=== PATIENT | female | born 1965 | race Caucasian/White ===

== ENCOUNTER 2021-07-04 16:23 | Emergency (ER) | payer OTHER, SELFPAY ==
--- NOTE | ~2021-07-04 | XR_ITS ---
EXAMINATION: XR chest 2V DATE: 07/04/2021 17:16 INDICATION: Left neck and chest pain and numbness radiating down the left arm for 2 weeks. TECHNIQUE: PA and lateral views of the chest were obtained. COMPARISON: None FINDINGS: The lungs are clear with no focal airspace opacities, pulmonary edema, pleural effusion or pneumothor ax. The cardiomediastinal silhouette is normal. Visualized bones and soft tissues are unremarkable. IMPRESSION: 1. No acute cardiopulmonary disease. Reviewed, dictated and finalized at location A.
[2021-07-04 16:33] VITALS: BP 176/110; PULSE 99; RESP 18; TEMP 36.8; O2SAT 98
--- NOTE | 2021-07-04 16:38 | ECG_ITS ---
Measurements Intervals [place] Rate: 97 P: 51 [place]: 156 QRS: 15 QRSD: 86 T: 30 QT: 360 QTc: 457 Interpretive Statements SINUS RHYTHM CANNOT RULE OUT SEPTAL INFARCT, AGE INDETERMINATE ABNORMAL ECG Electronically Signed On 07-04-2021 20:40:19 CDT by Mariano Villeda D.O.
[2021-07-04 17:46] LABS: Basophils Absolute Auto 0.1 K/mm3 (0.0-0.1); Eosinophils Absolute Auto 0.3 K/mm3 (0-0.3); Eosinophils Percent Auto 2.4 % (0-4.4); Hematocrit 47.5 % (37.0-47.0); Hemoglobin 15.4 g/dL (12.0-15.0); Immature Granulocyte Absolute 0.05 K/mm3 (0.00-0.031); Immature Granulocyte Percent A 0.4 % (0-0.5); Lymphocytes Absolute Auto 2.33 K/mm3 (0.9-3.2); Lymphocytes Percent Auto 20.3 % (18.3-44.2); Mean Corpuscular HGB Conc 32.4 g/dl (32-36); Mean Corpuscular Hemoglobin 29.8 pg (26-34); Mean Corpuscular Volume 91.9 fl (80-100); Mean Platelet Volume 9.6 fl (7.4-10.4); Monocytes Absolute Auto 0.8 K/mm3 (0.1-0.6); Neutrophils Absolute Auto 7.9 K/mm3 (1.3-6.7); Neutrophils Percent Auto 68.9 % (45.5-73.1); Platelet Count Result 306 k/mm3 (150-375); Red Blood Count 5.17 M/mm3 (4.2-5.4); Red Cell Distribution Width 14.1 % (11.5-14.5); White Blood Count 11.5 K/mm3 (4.5-10.0)
[2021-07-04 17:55] LABS: Anion Gap 9 mmol/L (8-16); Blood Urea Nitrogen 15 mg/dL (7-17); Calcium 9.1 mg/dL (8.4-10.2); Carbon Dioxide 30 mmol/L (22-30); Chloride 101 mmol/L (98-107); Estimated CRCL calculation 61 ml/min; Estimated Glomerular Filt Rate 58; Glucose 98 mg/dL (65-110); INR 0.8; Potassium 3.6 mmol/L (3.4-5.0); Prothrombin Time 11.4 Seconds (11.1-14.7); Sodium 140 mmol/L (137-145)
[2021-07-04 18:06] LABS: Troponin I < 0.012 ng/mL (0.000-0.034)
[2021-07-04 20:01] VITALS: BP 161/124; PULSE 100; RESP 14; TEMP 36.7; O2SAT 100
--- NOTE | 2021-07-04 20:06 | ED.NECK ---
HPI - Neck Pain/Injury General Chief Complaint: Neck Pain/Injury Stated Complaint: left neck/shoulder/chest pain x 2 weeks Time Seen by Provider: 07/04/21 20:06 Source: patient Mode of arrival: ambulatory Limitations: no limitations History of Present Illness HPI Narrative: Patient is a 56-year-old female complaining of left-sided neck pain radiating to her left shoulder and left upper chest wall, 7 out of 10, worse with movement and palpation, accompanied by tingling of her left upper extremity started approximately 2 weeks ago. Patient denies any injury. Related Data Allergies Allergy/AdvReac Type Severity Reaction Status Date / Time codeine Allergy Intermediate Itching Verified 07/04/21 20:22 hydrocodone Allergy Unknown Unknown Verified 07/04/21 20:22 Review of Systems Review of Systems: All systems reviewed & are unremarkable except as noted in HPI and below Constitutional: Constitutional: Denies body ache(s), Denies chills, Denies excessive sweating, Denies fatigue, Denies fever(s), Denies headache(s), Denies lethargy, Denies malaise, Denies weakness and Denies weight loss Eyes: Eyes: Denies blurry vision, Denies change in vision and Denies loss of vision ENT: Denies dizziness, Denies ear discharge, Denies headache(s), Denies lip swelling, Denies epistaxis, Denies nasal congestion, Denies throat swelling and Denies tongue swelling Cardiovascular: Cardiovascular: Denies chest pain, Denies chest pain at rest, Denies chest pain with activity, Denies diaphoresis, Denies rapid heart rate, Denies edema, Denies irregular heart rhythm, Denies lightheadedness, Denies palpitations, Denies dyspnea and Denies dyspnea on exertion Respiratory: Respiratory: Denies chest congestion, Denies cough, Denies hemoptysis, Denies dyspnea and Denies dyspnea on exertion Gastrointestinal: Gastrointestinal: Denies abdominal pain, Denies melena, Denies hematochezia, Denies diarrhea, Denies nausea, Denies vomiting and Denies hematemesis Musculoskeletal: Musculoskeletal: Denies abnormal gait, Denies deformity, Denies joint swelling, Denies limited range of motion and Denies numbness Neurologic: Denies Abnormal speech present, Denies abnormal gait, Denies confusion, Denies dizziness, Denies headache(s), Denies focal weakness, Denies loss of vision, Denies numbness, Denies Other visual disturbances and Denies weakness Psychiatric: Psychiatric: Denies confusion, Denies depression, Denies auditory hallucinations, Denies homicidal ideation and Denies suicidal ideation Endocrine: Endocrine: Denies cold intolerance, Denies excessive sweating, Denies fatigue, Denies heat intolerance and Denies palpitations Hematologic/Lymphatic: Hematologic/Lymphatic: Denies easy bleeding and Denies easy bruising Allergic/Immunologic: Allergic/Immunologic: Denies lip swelling, Denies throat swelling and Denies tongue swelling PMFSH Comments Past medical history: None Family history: Negative for coronary artery disease or NE, negative for aneurysm or dissection Social history: Positive for smoker, no EtOH or drug use Exam Const: General: cooperative, healthy appearing, comfortable, no acute distress, well developed, alert and awake; No confusion Orientation/consciousness: oriented to person, oriented to place, oriented to time, patient oriented x3 and No confusion Limitations: no limitations HENMT: Head: normal to inspection, normocephalic and atraumatic Ears: hearing grossly normal bilaterally, TM normal on the right and TM normal on the left General nose exam: Normal external nose present, Normal nares present and No nasal discharge present Face and sinus: normal facial exam Mouth: Yes Normal oral and palatal mucosa present, Yes lip normal, Yes tongue normal and Yes oropharynx normal Throat: posterior oropharynx normal, tonsils normal and uvula midline Eyes: General: appearance normal, both eyes and all related structures Pupils: Equal, round and reactive pupils present EOM:
[2021-07-04] MEDS: CYCLOBENZAPRINE HCL 10 MG TABLET PO (20:28)
[2021-07-04 20:42] LABS: Troponin I < 0.012 ng/mL (0.000-0.034)
== END 2021-07-04 22:06 | disposition home or self-care (01) ==
PROVIDERS: Emergency Provider Emergency Medicine
DX: M54.12 Radiculopathy, cervical region (principal); R07.89 Other chest pain; F17.200 Nicotine dependence, unspecified, uncomplicated; R94.31 Abnormal electrocardiogram [ECG] [EKG]
CPT/HCPCS: 36415; 71046; 80048; 84484; 85025; 85610; 85730; 93005; 96372; 99284; A9270; J1100

== ENCOUNTER 2021-08-20 00:10 | Emergency (ER) | payer OTHER, SELFPAY ==
--- NOTE | ~2021-08-20 | CT_ITS ---
EXAMINATION: CT abdomen pelvis wo con DATE: 08/20/2021 04:36 INDICATION: Flank pain. Urinary tract infection. TECHNIQUE: Computed tomography (CT) of the abdomen and pelvis was performed without intravenous contr ast. Automated exposure control and iterative reconstruction technique were employed. The dose-length product was 1309.77 mGy-cm. COMPARISON: None. FINDINGS: The visualized portions of the lung bases demonstrate calcified pulmonary nodules and calci fied left hilar and mediastinal lymph nodes, consistent with old granulomatous disease. No pleural ef fusion. The heart size is normal. No pericardial effusion. There is diffuse hepatic steatosis. The ga llbladder is normal. Calcifications in the spleen are consistent with old granulomatous disease. The pancreas and adrenal glands are normal. There is an 8 mm stone in right kidney. There is cortical thi nning of left kidney. There is a 14 mm calcification in left kidney that is likely parenchymal. There is diverticulosis of the colon without evidence of diverticulitis. The appendix is normal. There are no pathologically enlarged lymph nodes. There is no free intraperitoneal fluid. There is a left ingu inal hernia containing fat. There is a 3.1 cm subserosal uterine fibroid. There is moderate thoracolu mbar spondylosis. IMPRESSION: 1. Nonobstructing right kidney stone. 2. Left inguinal hernia containing fat. 3. Uterine fibroid. Reviewed, dictated and finalized at location A. TECH
--- NOTE | ~2021-08-20 | XR_ITS ---
EXAMINATION: XR chest 1V portable DATE: 08/20/2021 03:24 INDICATION: Cough and shortness of breath. TECHNIQUE: A single frontal view of the chest was obtained. COMPARISON: Chest 2 views 07/04/2021, CT abdomen and pelvis 08/20/2021 FINDINGS: The chest demonstrates clear lungs without pneumonia, pleural effusion, or pneumothorax. Th e heart size is normal. IMPRESSION: 1. No acute cardiopulmonary disease. Reviewed, dictated and finalized at location A. [address]
[2021-08-20 00:13] VITALS: BP 137/100; PULSE 114; RESP 18; TEMP 36.9; O2SAT 100
[2021-08-20 01:49] VITALS: BP 132/69; PULSE 103; RESP 18; O2SAT 100
[2021-08-20 03:15] LABS: Basophils Absolute Auto 0.1 K/mm3 (0.0-0.1); Basophils Percent Auto 0.9 % (0.2-1.2); Eosinophils Absolute Auto 0.2 K/mm3 (0-0.3); Eosinophils Percent Auto 1.6 % (0-4.4); Hematocrit 43.1 % (37.0-47.0); Hemoglobin 14.2 g/dL (12.0-15.0); Immature Granulocyte Absolute 0.07 K/mm3 (0.00-0.031); Immature Granulocyte Percent A 0.5 % (0-0.5); Lymphocytes Absolute Auto 2.74 K/mm3 (0.9-3.2); Lymphocytes Percent Auto 18.5 % (18.3-44.2); Mean Corpuscular HGB Conc 32.9 g/dl (32-36); Mean Corpuscular Hemoglobin 29.8 pg (26-34); Mean Corpuscular Volume 90.5 fl (80-100); Mean Platelet Volume 9.5 fl (7.4-10.4); Monocytes Absolute Auto 1.4 K/mm3 (0.1-0.6); Monocytes Percent Auto 9.7 % (2.6-8.5); Neutrophils Absolute Auto 10.2 K/mm3 (1.3-6.7); Neutrophils Percent Auto 68.8 % (45.5-73.1); Platelet Count Result 261 k/mm3 (150-375); Red Blood Count 4.76 M/mm3 (4.2-5.4); Red Cell Distribution Width 14.6 % (11.5-14.5); White Blood Count 14.8 K/mm3 (4.5-10.0)
[2021-08-20 03:26] LABS: Add Urine Microscopic? YES; Appearance Urine Cloudy (Clear); Bacteria Urine 4+ /hpf; Bilirubin Urine Negative (Negative); Blood Urine 3+ (Negative); Color Urine Yellow (Yellow); Glucose Urine UA Negative (Negative); Ketones Urine Negative (Negative); Leukocyte Esterase Ur 3+ LEU/UL (Negative); Mucus Urine Rare /lpf; Nitrate Urine Positive (Negative); Protein Urine 1+ mg/dL (Negative); RBC Urine 21-50 /hpf (0-2); Specific Grav Ur 1.019 (1.001-1.035); Squamous Epithelial Cell Urine Few /hpf (Few); Urobilinogen Urine Negative mg/dL (<2.0); WBC Clumps Urine Present /HPF; WBC Urine >75 /hpf
--- NOTE | 2021-08-20 03:30 | ED.GENADULT ---
HPI - General Adult General Chief complaint: Fever Stated complaint: Fever Time Seen by Provider: 08/20/21 02:36 History of Present Illness HPI narrative: Patient 56-year-old female presents the emergency department with chief complaint of fever body aches and generalized malaise. Patient reports is been going on for couple of days reports that she has had a dry cough denies shortness of breath reports that she is 8 alter her chest and abdomen and pelvis reports it also hurts in her back. The patient denies dysuria denies vomiting denies diarrhea. The patient reports that she has been vaccinated for COVID-19 Related Data Allergies Allergy/AdvReac Type Severity Reaction Status Date / Time codeine Allergy Intermediate Itching Verified 08/20/21 00:24 hydrocodone Allergy Unknown Unknown Verified 08/20/21 00:24 Review of Systems Review of Systems: A 10 system review of systems was completed on the patient and is negative except for what is stated in the HPI. Nursing and ancillary documentation was reviewed. Exam Narrative: GENERAL: Well-appearing, well-nourished, and in no acute distress. HEAD: Normocephalic, atraumatic. EYES: PERRLA and EOMI. ENT: Nares clear, no rhinorrhea or epistaxis. Mucous membranes moist. NECK: Supple. CHEST: Clear to auscultation. No respiratory distress. HEART: Regular rate and rhythm. No murmur heard. Normal peripheral pulses. ABDOMEN: Soft, diffuse tenderness to palpation, nondistended, normal active bowel sounds. EXTREMITIES: Normal range of motion. No edema. SKIN: Warm, dry, no rash. NEURO: No focal deficits. Alert and oriented x3. PSYCH: Normal mood and affect. Course Vital Signs Vital signs: Vital Signs Temperature 36.9 C 08/20/21 00:13 Pulse Rate 114 H 08/20/21 00:13 Respiratory Rate 18 08/20/21 00:13 Blood Pressure 137/100 H 08/20/21 00:13 Pulse Oximetry 100 08/20/21 00:13 Temperature 36.9 C 08/20/21 00:13 Pulse Rate 81 08/20/21 04:36 Respiratory Rate 20 08/20/21 04:36 Blood Pressure 144/87 H 08/20/21 04:36 Pulse Oximetry 100 08/20/21 04:36 Medical Decision Making Vital Signs Vital Signs: Vital Signs Temperature 36.9 C 08/20/21 00:13 Pulse Rate 114 H 08/20/21 00:13 Respiratory Rate 18 08/20/21 00:13 Blood Pressure 137/100 H 08/20/21 00:13 Pulse Oximetry 100 08/20/21 00:13 Temperature 36.9 C 08/20/21 00:13 Pulse Rate 81 08/20/21 04:36 Respiratory Rate 20 08/20/21 04:36 Blood Pressure 144/87 H 08/20/21 04:36 Pulse Oximetry 100 08/20/21 04:36 Lab Data Result diagrams: 08/20/21 03:09 08/20/21 03:09 Labs: Lab Results 08/20/21 08/20/21 08/20/21 Range/Units 03:09 03:09 03:09 WBC 14.8 H (4.5-10.0) K/mm3 RBC 4.76 (4.2-5.4) M/mm3 Hgb 14.2 (12.0-15.0) g/dL Hct 43.1 (37.0-47.0) % MCV 90.5 (80-100) fl MCH 29.8 (26-34) pg MCHC 32.9 (32-36) g/dl RDW 14.6 H (11.5-14.5) % Plt Count 261 (150-375) k/mm3 MPV 9.5 (7.4-10.4) fl Immature Gran % (Auto) 0.5 (0-0.5) % Neut % (Auto) 68.8 (45.5-73.1) % Lymph % (Auto) 18.5 (18.3-44.2) % Haines % (Auto) 9.7 H (2.6-8.5) % Eos % (Auto) 1.6 (0-4.4) % Baso % (Auto) 0.9 (0.2-1.2) % Lymph # (Auto) 2.74 (0.9-3.2) K/mm3 Haines # (Auto) 1.4 H (0.1-0.6) K/mm3 Eos # (Auto) 0.2 (0-0.3) K/mm3 Baso # (Auto) 0.1 (0.0-0.1) K/mm3 Abs Immat Gran (auto) 0.07 H (0.00-0.031) K/mm3 Absolute Neuts (auto) 10.2 H (1.3-6.7) K/mm3 Absolute Nucleated RBC 0.0 (0.0-0.012) K/mm3 Nucleated RBC % 0.0 (0.0-0.2) % Sodium 135 L (137-145) mmol/L Potassium 3.8 (3.4-5.0) mmol/L Chloride 101 (98-107) mmol/L Carbon Dioxide 29 (22-30) mmol/L Anion Gap 5 L (8-16) mmol/L BUN 13 (7-17) mg/dL Creatinine 1.00 (0.7-1.0) mg/dL Estim Creat Clear Calc 62 ml/min Estimated GFR 58 L (59 - ) Glucose 117 H (65-110) mg/dL Lactic Ac
[2021-08-20 03:31] LABS: Lactic Acid Reflex 1.1 mmol/L (0.7-2.1)
[2021-08-20] MEDS: KETOROLAC 30 MG/ML VIAL (*BKC) 15 MG IV PUSH (03:34)
[2021-08-20] MEDS: SODIUM CHLORIDE 0.9% IV 1,000 ML 999 ML IV CONT (03:34)
[2021-08-20] MEDS: ONDANSETRON INJ 4 MG/2 ML VIAL IV PUSH (03:35)
[2021-08-20 03:55] LABS: Alanine Aminotransferase 18 U/L (4-35); Albumin Level 3.7 g/dL (3.5-5.1); Alkaline Phosphatase 89 U/L (38-126); Anion Gap 5 mmol/L (8-16); Aspartate Amino Transferase 19 U/L (14-36); Bilirubin,Total 0.8 mg/dL (0.2-1.3); Blood Urea Nitrogen 13 mg/dL (7-17); Calcium 8.9 mg/dL (8.4-10.2); Carbon Dioxide 29 mmol/L (22-30); Chloride 101 mmol/L (98-107); Estimated CRCL calculation 62 ml/min; Estimated Glomerular Filt Rate 58; Glucose 117 mg/dL (65-110); Magnesium 2.1 mg/dL (1.6-2.3); Potassium 3.8 mmol/L (3.4-5.0); Sodium 135 mmol/L (137-145)
[2021-08-20 04:36] VITALS: BP 144/87; PULSE 81; RESP 20; O2SAT 100
[2021-08-20 06:36] VITALS: BP 133/83; PULSE 89; RESP 18; O2SAT 98
== END 2021-08-20 06:37 | disposition home or self-care (01) ==
PROVIDERS: Emergency Provider Emergency Medicine
DX: N12 Tubulo-interstitial nephritis, not specified as acute or chronic (principal)
CPT/HCPCS: 36415; 71045; 74176; 80053; 81001; 83605; 83735; 85025; 87077; 87081; 87086; 87088; 87186; 87804; 87880; 96361; 96365; 96375; 99284; J0696; J1885; J2405; J7030

== ENCOUNTER 2024-05-22 18:37 | Emergency (ER) | payer OTHER, SELFPAY ==
--- NOTE | ~2024-05-22 | XR_ITS ---
EXAM: XR ankle RT min 3V, XR foot RT min 3V DATE: 05/22/2024 19:26 HISTORY: foot injury . COMPARISON: None available. FINDINGS: Normal mineralization. Oblique fracture of the distal right fifth metatarsal, with 4 mm me dial displacement of the distal fragment. No lytic or blastic lesion. Mild scattered degenerative richard nge. Minimal Achilles and mild plantar enthesopathy. No erosion or periosteal change. Soft tissues wi thin normal limits. IMPRESSION: Oblique fracture of the distal right fifth metatarsal with medial displacement. Reviewed, dictated and finalized at location K. IMPRESSION: Oblique fracture of the distal right fifth metatarsal with medial d isplacement.
[2024-05-22 18:38] VITALS: BP 166/123; PULSE 92; RESP 15; TEMP 36.5; O2SAT 99
--- NOTE | 2024-05-22 20:08 | ED.LOWEXIN ---
HPI - Extremity Injury (Lower) General Chief Complaint: Extremity Injury, Lower Stated Complaint: right foot injury Time Seen by Provider: 05/22/24 19:54 History of Present Illness HPI Narrative: Patient presenting here with right foot injury about a week ago when she rolled her foot while wearing high heels. Has been walking on the foot but has been hurting. Related Data Allergies Allergy/AdvReac Type Severity Reaction Status Date / Time codeine Allergy Intermediate Itching Verified 05/22/24 18:38 hydrocodone Allergy Unknown Unknown Verified 05/22/24 18:38 Review of Systems Review of Systems: All systems reviewed & are unremarkable except as noted in HPI and below Exam Narrative: EXAMINATION OF ORGAN SYSTEMS/BODY AREAS: Constitutional: Vital signs per nursing GENERAL:[No acute distress, non-toxic appearing.] HEAD: Normal with no signs of head trauma. EYES: EOMI, conjunctiva normal ENT: Hearing grossly intact LUNGS: Nonlabored breathing. HEART: [Regular rate and rhythm], normal DP pulse ABD: [Soft], [nontender to palpation] EXT: Bruising and swelling right foot SKIN: Bruising to right foot NEURO: [Alert and oriented x 3. No gross focal sensory or strength deficits.] PSYCH: Normal affect Course Vital Signs Vital signs: Vital Signs Temperature 97.7 F 05/22/24 18:38 Pulse Rate 92 05/22/24 18:38 Respiratory Rate 15 05/22/24 18:38 Blood Pressure 166/123 H 05/22/24 18:38 Pulse Oximetry 99 05/22/24 18:38 Oxygen Delivery Room Air 05/22/24 18:38 Temperature 97.7 F 05/22/24 18:38 Pulse Rate 92 05/22/24 18:38 Respiratory Rate 15 05/22/24 18:38 Blood Pressure 166/123 H 05/22/24 18:38 Pulse Oximetry 99 05/22/24 18:38 Oxygen Delivery Room Air 05/22/24 18:38 Procedures Orthopedic Splinting/Casting Injury #1: Splinting/Casting Date: 05/22/24 Side: right Lower Extremity Injury Location: foot Lower Extremity Immobilizer: posterior splint Splint: customized in ED OCL: short leg Pre-Procedure Neuro Vascular Exam: normal Post-Procedure Neuro Vascular Exam: normal Other Orthopedic Equipment: crutches MDM - Extremity Injury (Lower) MDM Narrative Medical decision making narrative: Patient presents here after right foot injury 1 week ago, on exam she is neurovascularly intact but there is swelling and pain to her heart especially the lateral foot, x-ray on my independent interpretation does show 5th metatarsal shaft fracture her hip. She is placed in a short-leg splint, given crutches, instructed to not put weight on her foot, to follow up with a surgeon she may need surgery. Patient did agree and return precautions provided Discharge Plan Discharge Clinical Impression: Foot fracture Patient Disposition: Home, Self-Care Condition: Stable Instructions: Antibiotic Form, Foot Fracture in Adults (ED) Additional Instructions: Please keep your leg in the splint and use the crutches and followup with the foot surgeon tomorrow. You can always return to the ER for worsening issues Prescriptions: No Action cyclobenzaprine 10 mg tablet 10 mg PO TID PRN (Reason: muscle spasm) Qty: 9 0RF methylprednisolone [Medrol (Romulo)] 4 mg tablets,dose pack See Rx Instructions .ROUTE .COMPLEX Qty: 21 0RF Rx Instructions: orally per package directions cefdinir 300 mg capsule 300 mg PO Q12H 10 Days Qty: 20 0RF ondansetron 4 mg tablet,disintegrating 4 mg PO Q8H PRN (Reason: nausea and vomiting) Qty: 10 0RF Follow-up/Referrals: Desean Lagunas Jr., DPM [Physician] - 2 Days PHYSICIAN,OFFICE MOVER [Non-Staff] -
== END 2024-05-22 20:29 | disposition home or self-care (01) ==
LOC: ANHED 20:21
PROVIDERS: Emergency Provider Emergency Medicine; PCP Internal Medicine Gastroenterology
DX: S92.351A Displaced fracture of fifth metatarsal bone, right foot, initial encounter for closed fracture (principal); X50.0XXA Overexertion from strenuous movement or load, initial encounter
CPT/HCPCS: 29515; 73610; 73630; 99284

== ENCOUNTER 2025-01-05 19:42 | Emergency (ER) | payer OTHER, SELFPAY ==
--- NOTE | ~2025-01-05 | XR_ITS ---
XR chest 2V Ordering provider: Ju Gatica APRN History: 59 years Female with . wheezing . Comparison: August 20, 2021 FINDINGS: MEDIASTINUM: The cardiac silhouette is not enlarged. LUNGS: No infiltrates, effusions or pneumothorax. Prominent markings in the right lung base which is partly due to the poor inspiration. Minimal atelec tasis is not excluded. Opacity in the right lateral aspect also seen which may be a nipple shadow or a nodule. Repeat exam with nipple marker is advised. OTHER: No free air under the diaphragm. IMPRESSION: Prominent markings in the right lung base which may be due to atelectasis. Otherwise, No acute cardiopulmonary pathology. Reviewed, dictated and finalized at location A. IMPRESSION: Prominent markings in the right lung base which may be due to atelectasis. Othe rwise, No acute cardiopulmonary pathology.
--- OUTSIDE RECORDS SUMMARY | 2025-01-05 19:44 | XMS_ITS | CONTINUITY OF CARE DOCUMENT ---
Author Name krista velasco Address Unknown Organization [facility] Address [address] [address] [place] [address] Phone [phone] Care Team Providers Care Coutierier Name Role Phone Erasto ARROYO, Renetta Unavailable PINA CROOK MD Unavailable PINA CROOK MD Unavailable INSURANCE PROVIDERS Payer name Policy type / Coverage type [place] red republican ID [employer] [facility] Medicaid [id number]
--- OUTSIDE RECORDS SUMMARY | 2025-01-05 19:44 | XMS_ITS | Data Portability ---
Author Organization [facility] [address] [facility] [facility] [place] [address] Care Team Providers Care Mechanical Cad Drafter Name Role Phone RACHEL PRABHAKAR Primary Care Provider [phone] Assessment No assessment recorded. Plan of Treatment Reminders Order Date Submit Date Provider Last Modified By Organization Details Last Modified Time Details Appointments None recorded . Lab vitamin D, 25-hydro xy, total, serum 2023 [facility], [address], [place], [address], 5 16:32:41 CMP, serum or plasma 2023 024 [facility], [address], [place], [address], 5 16:32:41 lipid panel, serum 2023 [facility], [address], [place], [address], 5 16:32:41 CBC 2023 024 [employer] [facility], [address], [place], [address], 5 16:32:41 TSH, ultra-se nsitive, serum 2023 024 [employer] [facility], [address], [place], [address], 5 16:32:41 urinalys is, complete 2015 016 DBA_PATCH_20 [id number] [facility], [address], [address], [place], [address], 6 04:30:57 CBC 2015 016 DBA_PATCH_20 [id number] [facility], [address], [address], [place], [address], 6 04:30:57 lipid panel, serum 2015 016 DBA_PATCH_20 [id number] [facility], [address], [address], [place], [address], 6 04:30:57 CMP, serum or plasma 2015 016 DBA_PATCH_20 [id number] [facility], [address], [address], [place], [address], 6 04:30:57 HbA1c (hemoglo bin A1c), blood 2015 016 DBA_PATCH_20 [id number] [facility], [address], [address], [place], [address], 6 04:30:57 Referral pulmonol ogist referral 2023 024 JOHN العلي MD, [address] [place], [address], 4 16:04:[address] referral - Please call patient to schedule 2015 016 [email or web address] Marvin Hernandes MD, [address] [place], [address], 7 08:07:09 Procedures None recorded . Surgeries None recorded . Imaging None recorded . Medication Orders amlodipi ne 10 mg tablet 2023 024 [facility]/Pharmacy #[id number], [address], [place], [address], 4 13:19:10 amlodipi ne 5 mg tablet 2021 022 [facility]/Pharmacy #[id number], [address], [place], [address], 2 03:32:22 ranitidi ne 150 mg tablet 2015 016 [facility]/Pharmacy #[id number], [address], [place], [address], 10:58:04 Patient TargetsNo targets recorded. Patient Instructions Encounter Date Encounter Id Patient Instructions Last Modified By Organization Details Last Modified Time 08/20/2016 [id number] Make an appointment to see an lint cleaner Make an appointment to see a dentist Make an appointment for 1 week for cerumen removal Make an appointment for 2 weeks for WWE [email or web address] Not available 08/20/2016 10:47:14 03/26/2022 [id number] deciding about using medicines to quit smoking Not available 03/26/2022 14:29:20 07/13/2024 [id number] deciding about using medicines to quit smoking [email or web address] Not available 07/13/2024 13:19:07 Quitting Tobacco : Care Instructions [email or web address] Not available 07/13/2024 13:19:07 learning about high blood pressure [email or web address] Not available 07/13/2024 13:19:07 Reason for Referral Please call patient to hillary nolen Referring Physician: Tana Baeza, Family Medicine, Encounter Date: 08/20/2016 [employer] Referral for T obacco dependence syndrome Hx COPD Referring Physician: Rachel Prabhakar, Internal Medicine, Encounter Date: 07/13/2024 Results Created Date Observation Date Name Description Value Unit Range Abnormal Flag Note LastModifiedBy Organization Detail LastModifiedTime 03/15/20 22 03/24/2022 CBC W Auto Diffe renti al panel - Blood white blood cells high white blood cells Not Available Not Available 11/22/2024 03:34:23 03/15/20 22 03/24/2022 CBC W Auto Diffe renti al panel - Blood red blood cells red blood cells Not Available Not Available 11/22/2024 03:34:23 03/15/20 22 03/24/2022 CBC W Auto Diffe renti al panel - Blood hemoglobin hemog lobin Not Available Not Available 11/22/2024 03:34:23 03/15/20 22 03/24/2022 CBC W Auto Diffe renti al panel - Blood hematocrit hemat ocrit Not Available Not Available 11/22/2024 03:34:23 03/15/20 22 03/24/2022 CBC W Auto Diffe renti al panel - Blood mean red cell volume mean red cell volum e Not Available Not Available 11/22/2024 03:34:23 03/15/20 22 03/24/2022 CBC W Auto Diffe renti al panel - Blood mean red cell hemoglobin mean red cell hemog lobin Not Available Not Available 11/22/2024 03:34:23 03/15/20 22 03/24/2022 CBC W Auto Diffe renti al panel - Blood mean RBC HGB concentratio n mean RBC HGB madelyn ntrat ion Not Available Not Available 11/22/2024 03:34:23 03/15/20 22 03/24/2022 CBC W Auto Diffe renti al panel - Blood red cell distribution width red cell distr ibuti on width Not Available Not Available 11/22/2024 03:34:23 03/15/20 22 03/24/2022 CBC W Auto Diffe renti al panel - Blood platelets high plate lets Not Available Not Available 11/22/2024 03:34:23 03/15/20 22 03/24/2022 CBC W Auto Diffe renti al panel - Blood mean platelet volume mean plate let volum e Not Available Not Available 11/22/2024 03:34:23 03/15/20 22 03/24/2022 CBC W Auto Diffe renti al panel - Blood neutrophils high neutr ophil s Not Available Not Available 11/22/2024 03:34:23 03/15/20 22 03/24/2022 CBC W Auto Diffe renti al panel - Blood bands bands Not Available Not Availa ble 11/22/2024 03:34:23 03/15/20 22 03/24/2022 CBC W Auto Diffe renti al panel - Blood lymphocytes low lymph ocyte s Not Available Not Available 11/22/2024 03:34:23 03/15/20 22 03/24/2022 CBC W Auto Diffe renti al panel - Blood monocytes low monoc ytes Not Available Not Available 11/22/2024 03:34:23 03/15/20 22 03/24/2022 CBC W Auto Diffe renti al panel - Blood nucleated red blood cells nucle ated red blood cells Not Available Not Available 11/22/2024 03:34:23 03/15/20 22 03/24/2022 CBC W Auto Diffe renti al panel - Blood NRBC# NRBC# Not Available Not Availa ble 11/22/2024 03:34:23 03/15/20 22 03/24/2022 CBC W Auto Diffe renti al panel - Blood normal RBC morphology presen [place] l RBC morph ology Not Available Not Available 11/22/2024 03:34:23 05/27/20 22 05/26/2022 CT, angio gram, chest , w/ contr ast No observ ation record ed. [email or web address] [facility] [address] [place], [address], 05/29/2022 10:10:27 05/27/20 22 05/26/2022 XR, chest No observ ation record ed. [email or web address] [facility] [address] [place], [address], 05/29/2022 10:10:39 05/27/20 22 05/27/2022 [place], modif ied angelica romero ow study No observ ation record ed. [email or web address] [facility] [address] [place], [address], 05/29/2022 10:11:05 08/05/20 22 08/04/2022 imagi ng/di agnos tic resul t No observ ation record ed. [facility] Orders [address] [place], [address], 08/05/2022 09:16:57 08/05/20 22 08/04/2022 XR, chest No observ ation record ed. [facility] [address] [place], [address], 08/05/2022 09:59:20 08/05/20 22 08/05/2022 XR, chest No observ ation record ed. [facility] [address] [place], [address], 08/06/2022 08:59:49 08/06/20 22 08/05/2022 angelica romero ow study No observ ation record ed. [facility] [address] [place], [address], 08/06/2022 11:37:17 01/02/20 23 01/01/2023 XR, chest No observ ation record ed. [facility] [address] [place], [address], 01/11/2023 09:25:47 01/02/20 23 01/01/2023 CT, chest , w/ contr ast No observ ation record ed. [facility] [address] [place], [address], 01/11/2023 08:46:48 03/10/20 23 03/09/2023 CT, chest , w/o contr ast No observ ation record ed. [facility] [address] [place], [address], 03/10/2023 09:01:40 03/10/20 23 03/09/2023 XR, chest , 2 view No observ ation record ed. [address] [place], [address], 03/10/2023 11:58:29 09/18/20 23 09/18/2023 XR, chest , 2 view No observ ation record ed. [facility] [address] [place], [address], 09/20/2023 14:17:27 Result Notes None recorded. Problems Name Problem SNOMED Code Status Onset Date Resolution Date Notes Provider Name and Address Organization Details Recorded Time Essential hypertension 28138153 Active 2021 Not Available [facility] 3 22:20:08 Fracture of foot 15027490 Active 2023 Rachel Prabhakar MD Attn: Accounting ,[address] [place], [address] , [facility] 4 17:48:33 Diverticular disease 491924885 Active 2015 Not Available [facility] 3 22:20:08 Body mass index 25-29 - overweight 471150517 Active 2015 Not Available [facility] 3 22:20:08 Tobacco dependence syndrome 52225062 Active 2015 Not Available [facility] 3 22:20:08 Gastroesophag eal reflux disease without esophagitis 761548555 Active 2015 Not Available [facility] 3 22:20:08 Problem Notes None recorded. Procedures Surgical History Date Name Laterality Status Provider Name and Address Organization Details Recorded Time Tonsillectomy completed Chey Ricci MA MD - [facility] 08/20/2016 10:16:53 Caesarean Section completed Chey adam MA MD - [facility] 08/20/2016 10:16:59 Imaging Results Imaging Date Name Status LastModified by Organiz ation Details LastModified Time 05/26/2022 CT, angiogram, chest, w/ contrast completed [email or web address] [facility] [address] [place], [address], 05/29/2022 10:10:27 05/26/2022 XR, chest completed [email or web address] [address] [place], [address], 05/29/2022 10:10:39 05/27/2022 [place], modified barium swallow study completed [address] [facility] [address] [place], [address], 05/29/2022 10:11:05 08/04/2022 imaging/diagn ostic result completed [facility] [address] [place], [address], 08/05/2022 09:16:57 08/04/2022 XR, chest completed [facility] [address] [place], [address], 08/05/2022 09:59:20 08/05/2022 XR, chest completed [facility] [address] [place], [address], 08/06/2022 08:59:49 08/05/2022 barium swallow study completed [facility] [address] [place], [address], 08/06/2022 11:37:17 01/01/2023 XR, chest completed [facility] [address] [place], [address], 01/11/2023 09:25:47 01/01/2023 CT, chest, w/ contrast completed [facility] [address] [place], [address], 01/11/2023 08:46:48 03/09/2023 CT, chest, w/o contrast completed [facility] [address] [place], [address], 03/10/2023 09:01:40 03/09/2023 XR, chest, 2 view completed [address] [facility] [address] [place], [address], 03/10/2023 11:58:29 09/18/2023 XR, chest, 2 view completed [facility] [address] [place], [address], 09/20/2023 14:17:27 Procedure Notes None recorded. Medical Equipment None Reported. Allergies Allergen ID Allergen Name Allergen Category Reaction Reaction Severity Criticality Documentation Date Start Date Code Code System Note Provider Name and Address Organization Details Recorded Time 152945 codeine medicatio n nausea Not available Not available 07/13/2024 8020 RxNorm Not Available Not Available Not Available Medications Name Sig Start Date Stop Date Status Note LastModified by Organization Details LastModified Time cyclobenzap rine 10 mg tablet TAKE 1 TABLET BY MOUTH 3 TIMES A DAY NEEDED 03/26 completed Not Available Not Available Not Available prednisone 20 mg tablet TAKE 1 TABLET BY MOUTH EVERY DAY 07/13 completed Not Available Not Available Not Available amlodipine 5 mg tablet Take 1 tablet every day by oral route. active Not Available Not Available No t Available nifedipine ER 60 mg tablet,exte nded release 24 hr TAKE 1 TABLET BY MOUTH EVERY DAY active Not Available Not Available No t Available amlodipine 10 mg tablet TAKE 1 TABLET BY MOUTH EVERY DAY active Not Available Not Available No t Available benzonatate 100 mg capsule TAKE 1 CAPSULE BY MOUTH EVERY 8 HOURS NEEDED FOR COUGH/CON GESTION 07/13 completed Not Available Not Available Not Available ranitidine 150 mg tablet Take 1 tablet twice a day by oral route. 03/26 completed Not Available Not Available Not Available buspirone 10 mg tablet TAKE 1 TABLET BY MOUTH 3 TIMES A DAY 07/13 completed Not Available Not Available Not Available ibuprofen 600 mg tablet TAKE 1 TABLET ORAL ROUTE EVERY 6 HOURS NEEDED TAKE WITH FOOD 07/13 completed Not Available Not Available Not Available levofloxaci n 500 mg tablet TAKE 1 TABLET BY MOUTH EVERY DAY FOR 5 DAYS 07/13 completed Not Available Not Available Not Available levofloxaci n 750 mg tablet TAKE 1 TABLET BY MOUTH DAILY 07/13 completed Not Available Not Available Not Available methylpredn isolone 4 mg tablets in a dose pack TAKE 6 TABLETS ON DAY 1 DIRECTED ON PACKAGE AND DECREASE BY 1 TAB EACH DAY FOR A TOTAL OF 6 DAYS 03/26 completed Not Available Not Available Not Available albuterol sulfate HFA 90 mcg/actuati on aerosol inhaler INHALE 1 PUFF EVERY 4 HOURS NEEDED active Not Available Not Available No t Available ondansetron 4 mg disintegrat ing tablet DISSOLVE 1 TABLET ON TONGUE EVERY 8 HOURS NEEDED FOR NAUSEA OR VOMITING. 03/26 completed Not Available Not Available Not Available cefdinir 300 mg capsule TAKE 1 CAPSULE BY MOUTH TWICE A DAY 07/13 completed Not Available Not Available Not Available sertraline 50 mg tablet TAKE 1 TABLET BY MOUTH EVERY DAY 07/13 completed Not Available Not Available Not Available doxycycline hyclate 100 mg tablet TAKE 1 TABLET ORAL ROUTE 2 TIMES PER DAY FOR 10 DAYS 07/13 completed Not Available Not Available Not Available Symbicort 160 mcg-4.5 mcg/actuati on HFA aerosol inhaler INHALE 2 PUFFS BY MOUTH TWICE A DAY active Not Available Not Available No t Available Spiriva Respimat 2.5 mcg/actuati on solution for inhalation INHALE 2 PUFFS INTO THE LUNGS EVERY DAY active Not Available Not Available No t Available Vitals Date Recorded Body height Body mass index (BMI) Body weight Heart rate Body temperature Oxygen saturation Oxygen saturation in Arterial blood by Pulse oximetry Systolic blood pressure Diastolic blood pressure Provider Name and Address Organization Details Last Updated DateTime 2 165.1 cm 33.4 kg/m2 92347.0 7 g 84 /min 98.1 [degF] 98 % 98 % 148 mm[Hg] 110 mm[Hg] Chey Ricci MA [facility] 2 11:02:03 Date Recorded Systolic blood pressure Diastolic blood pressure Provider Name and Address Organization Details Last Updated DateTime 03/26/2022 150 mm[Hg] 100 mm[Hg] Rachel Prabhakar MD Attn: Accounting,[address] [place], [address], [facility] 03/26/2022 11:34:08 Date Recorded Body height Body mass index (BMI) Body weight Oxygen saturation Oxygen saturation in Arterial blood by Pulse oximetry Heart rate Systolic blood pressure Diastolic blood pressure Provider Name and Address Organization Details Last Updated DateTime 4 162.56 cm 35.9 kg/m2 16218.8 1 g 99 % 99 % 97 /min 173 mm[Hg] 116 mm[Hg] Franci Rojas MA [facility] 4 12:48:25 Date Recorded Body height Body weight Body mass index (BMI) Body temperature Oxygen saturation Oxygen saturation in Arterial blood by Pulse oximetry Heart rate Systolic blood pressure Diastolic blood pressure Provider Name and Address Organization Details Last Updated DateTime 6 165.1 cm 99233.8 4 g 29.7 kg/m2 97.9 [degF] 99 % 99 % 75 /min 136 mm[Hg] 86 mm[Hg] Chey Ricci MA [facility] 6 10:15:46 Social History Question Answer Notes LastModified by Organizat ion Details LastModified Time Tobacco Smoking Status Current Some Day Smoker Chey Ricci MA [facility] 03/26/2022 11:02:17 What Is Your Level Of Alcohol Consumption? None Information not available 08/20/2016 What Is Your Level Of Caffeine Consumption? Heavy Information not available 08/20/2016 Are You Currently Employed? No Information not available 08/20/2016 What Type Of Diet Are You Following? REGULAR Information not available 08/20/2016 Which Illicit Or Recreational Drugs Have You Used? 0 Information not available 08/20/2016 Education 12 Information no t available 08/20/2016 Are There Any Guns Present In Your Home? No Information not available 08/20/2016 Hard Of Hearing Or Deaf In One Or Both Ears? No Information not available 08/20/2016 Legally Blind In One Or Both Eyes? No Information no t available 08/20/2016 Live Alone Or With Others? With Others Mother Information not available 08/20/2016 What Was The Date Of Your Most Recent Tobacco Screening? 03/26/2022 Information not available 03/26/2022 How Many Children Do You Have? 6 Information not available 08/20/2016 Do You Use Protection During Sex? No Information not available 08/20/2016 Seat Belts Used Routinely Yes Information not available 08/20/2016 Are You Sexually Active? Yes Information not available 08/20/2016 How Much Tobacco Do You Smoke? 0.5 PPD Information not available 08/20/2016 Do You Use Sunscreen Routinely? Yes Information not available 08/20/2016 How Many Years Have You Smoked Tobacco? 30 Information not available 08/20/2016 Sex: Unknown Functional Status Question Answer Note LastModified by Organization D etails LastModified Time What is your exercise level? Moderate Information not available 08/20/2016 Mental Status None recorded. Family History Relationship Description Onset Age of this Age Resolved Age Notes LastModified by Organization Details LastModified Time Father No current problems or disability [email or web address] Not available 08/20 10:16:33 Mother No current problems or disability [email or web address] Not available 08/20 10:16:33 Medical History Condition Response Coronary Artery Disease N Other Y Atrial Fibrillation N High Blood Pressure Y Thyroid Problems N Kidney or Bladder Problems Y Depression Y COPD Y Blood Clots N GI Problems N Have you had a mammogram in the last yea r? N Skin Problems N Anemia N Heart Attack ([place]) N Diabetes N Anxiety Disorder Y Muscle, Joint, or Bone Problems N Seizures/Epilepsy N Have you had a colonoscopy in the last 1 0 years? N Acid Reflux (GERD) Y Cancer N Stroke N Allergies N Asthma N Have you had a PSA blood test in the las t year? N High Cholesterol N Hepatitis N Liver Disease N Headaches N Osteoporosis N Heart Failure N Gynecological History Statement/Question Response Flow Heavy Date of LMP 07/30/2016 Frequency of Cycle (Q days) 28 Duration of Flow (days) 5 Current Control Method Tubal Ligat ion Age at First Child 24 LMP Approximate Obstetrics History GPAL:G 0 P 0 0 0 0 Immunizations Vaccine Type Date Status Note Provider Nam e and Address Organization Details Recorded Time COVID-19, mRNA, LNP-S, PF, 30 mcg/0.3 mL dose 1 completed Not Available [facility] 05/19/2023 01:02:27 COVID-19, mRNA, LNP-S, PF, 30 mcg/0.3 mL dose 1 completed Not Available [facility] 05/19/2023 01:02:27 COVID-19, mRNA, LNP-S, PF, 30 mcg/0.3 mL dose 1 completed Not Available [facility] 05/19/2023 01:02:27 Influenza, split virus, quadrivalent, preservative 6 completed Not Available [facility] 10/28/2019 02:48:36 Past Encounters Encounter ID Performer Location Encounter Start Date Encounter Closed Date Diagnosis/Indication Diagnosis SNOMED-CT Code Diagnosis ICD10 Code Diagnosis Note [id number] VALERIE Trinidad (Adult Med) [address] [place] [phone] 08/20/2016 09:55:41 08/20/2016 15:38:54 Active or passive immunization 697551157 Z23 Diverticular disease 397 542308 K57.90 Advised to take her laxativeWi ll refer to GI for management Body mass index 25-29 - overweight 498001434 Z68.29 Advised 30 minutes of exercise 5 days/week Advised to not drink her calories Advised 3 balanced meals/day with plenty of fruits and vegetables Stop drinking juice and soda - drink more water Tobacco de pendence syndrome 62938442 F17.290 Advised to quit Gastroesop hageal reflux disease without esophagitis 044971800 K21.9 Do not eat within 2 hours of bedtimeSta y away from greasy and deep fried foodsStay away from acidic foods Stop smokingWil l initiate ranitidine 150mg BID Impacted cerumen 7258492 6 H61.23 Advised to purchase sweet oil OTC - one drop each ear BIDRTC 1 week to have cerumen removed Adult [facility] th examination 606022672 Z00.01 51YO Caucasain female here to establish care. She has moved here from [place]. [id number] MD Quan Meehan (Adult Med) [address] [place] [phone] 03/26/2022 10:41:57 03/31/2022 12:12:01 Essential hypertension 95402886 I10 Tobacco de pendence syndrome 20368915 F17.133 [id number] MD Quan Meehan (Adult Med) [address] [place] [phone] 07/13/2024 12:16:16 07/14/2024 14:16:54 Essential hypertension 52022939 I10 Increase amlodipine Diverticular disease 397 786147 K57.90 Fracture of foot 3066502 5 S92.901D S92.901A Tobacco de pendence syndrome 81295984 F17.200 Health Concerns Section Related Observation LastModified by Organization Detai ls LastModified Time None Recorded Concern Status LastModified by Organization Details LastModified Time None Recorded Advance Directives Directive None Recorded Payers Encounter Date Sequence Insurance Name Policy Number Policy Kamara Covered Member ID Kamara Member ID Guarantor Name 08/20/2016 2 [place] [facility] [place] [employer] Mary Rolen [id number] Mary Rolen 03/26/2022 2 [place] [facility] [place] [facility] Mary Rolen [id number] Mary Rolen 03/26/2022 1 [employer] [place] ON [place] AFTER 2020 (MEDICAID REPLACEMENT - HMO) Mary Rolen [id number] Mary Rolen 07/13/2024 1 [employer] [place]AC[place] - [place]MO) Mary Rolen [id number] Mary Rolen Notes Date Note Type Note Provider Name and Address Organization Details Recorded Time 08/20/2016 text/html Here to francisco guerra. He has no complaints today Tana Baeza PA-C Attn: Accounting,[address] [facility], [place], [address], [facility] 08/20/2016 10:48:24 07/13/2024 text/html Here for BP f/u. She was restarted on amlodipine two months ago. No complaints Rachel Prabhakar MD Attn: Accounting,[address] [facility], [place], [address], [facility] 07/13/2024 13:19:34 OBGyn Episode No OBEpisode recorded.
--- OUTSIDE RECORDS SUMMARY | 2025-01-05 19:44 | XMS_ITS | Referral Summary ---
Author Organization [facility] Address [id number] [place] [id number] Care Team Providers Care Learning Disabilities Teacher Name Role Phone Rachel Prabhakar MD Primary Care Provider Allergies Active Allergy Reactions Criticality Noted Date Comments Codeine Nausea & Vomiting Low 06/29/2022 Hydrocodone-Acetaminophen Nausea & Vomiting Low Medications albuterol HFA (PROVENTIL HFA,VENTOLIN HFA,PROAIR HFA) 90 mcg/actuation inhaler Inhale 2 puffs every 6 (six) hours as needed for wheezing Active amLODIPine (NORVASC) 5 mg tablet Take 1 tablet (5 mg total) by mouth daily Active azithromycin (ZITHROMAX) 500 mg tabletIndicatio ns:Pneumonia, Hospital Acquired Take 1 tablet (500 mg total) by mouth daily 07/04/2022 Active cefepime 1,000 mg in sodium chloride 0.9% 100 mL IVPBIndications :Upper Respiratory/ELIEL NT Infection Infuse 1,000 mg into a venous catheter every 12 (twelve) hours 1 each 07/03/2022 Active enoxaparin (LOVENOX) 40 mg/0.4 mL syringeIndicati ons:Deep Vein Thrombosis Prevention Inject 0.4 mL (40 mg total) under the skin daily 07/03/2022 Active methylPREDNISol one sodium succinate (SOLU-medrol) 40 mg/mL recon soln Infuse 1 mL (40 mg total) into a venous catheter every 12 (twelve) hours 07/03/2022 Active Active Problems Problem Noted Date Diagnosed Date Fracture of foot 05/26/2024 Bronchopneumonia 06/29/2022 Aspiration pneumonia of righ t lower lobe due to regurgitated food 06/29/2022 Overview (07/01/2022): Added automatically from request for surgery [id number] Essential hypertension 03/26/2022 Forehead laceration 11/28/2021 Diverticular disease 08/20/2016 Gastroesophageal reflux disease without esophagi tis 08/20/2016 Social History Tobacco Use Types Packs/Day Years Used Date Smoking Tobacco: Every Day Cigarettes Tobacco Cessation:Ready to Q uit: Not Asked; Counseling Given: Not Answered Social Connection and Isolat ion Panel [NHANES] Answer Date Recorded In a typical week, how many times do you talk on the phone with family, friends, or neighbors? More than three times a week 06/30/2022 How often do you get togethe r with friends or relatives? More than three times a week 06/30/2022 How often do you attend chur or sabianist services? Never 06/30/2022 Do you belong to any clubs o r organizations such as anabaptist groups, unions, fraternal or athletic groups, or school groups? No 06/30/2022 How often do you attend meet ings of the clubs or organizations you belong to? Never 06/30/2022 Are you , , di vorced, , never , or living with a partner? Living with partner 06/30/2022 AUDIT-C Answer Date Recorded Q1: How often do you have a drink containing alcohol? Never 06/29/2022 Q2: How many drinks containi ng alcohol do you have on a typical day when you are drinking? Patient does not drink Q3: How often do you have si x or more drinks on one occasion? Never 06/29/2022 Overall Financial Resource Strain (CARDIA) Answe r Date Recorded How hard is it for you to pa y for the very basics like food, housing, medical care, and heating? Not very hard 06/30/2022 Hunger Vital Sign Answer Date Recorded Within the past 12 months, y ou worried that your food would run out before you got the money to buy more. Never true 06/30/20 22 Within the past 12 months, t he food you bought just didn't last and you didn't have money to get more. Never true 06/30/2022 PRAPARE - Transportation Answer Date Re corded In the past 12 months, has l ack of transportation kept you from medical appointments or from getting medications? No 06/12 In the past 12 months, has l ack of transportation kept you from meetings, work, or from getting things needed for daily living? No 06/30/2022 Housing Stability Vital Sign Answer Eulalio e Recorded In the last 12 months, was t here a time when you were not able to pay the mortgage or rent on time? No 06/30/2022 In the last 12 months, how many places have you lived? 1 06/30/2022 In the last 12 months, was t here a time when you did not have a steady place to sleep or slept in a senior care (including now)? No 06/30/2022 Personal Safety Answer Date Recorded Getting School Help Needed Not on file 10/02 Comments Unknown Sex and Gender Information Value Date Recorded Sex Assigned at Not on file Legal Sex Female 1:11 AM CDT Gender Identity Not on file Sexual Orientation Not on file Last Filed Vital Signs Vital Sign Reading Time Taken Comments Blood Pressure 187/126 07/11/2024 8:28 AM CDT Pulse 92 07/11/2024 8:28 AM CDT Temperature 36.8 C (98.2 F) 08/04/2022 3:20 PM CDT Respiratory Rate 27 08/04/2022 3:20 PM CDT Oxygen Saturation 94% 08/04/2022 3:24 PM CDT Inhaled Oxygen Concentration - - Weight 95.1 kg (209 lb 9.6 oz) 07/11/2024 8:28 A M CDT Height 162.6 cm (5' 4 ) 07/11/2024 8:28 AM CDT Body Mass Index 35.98 07/11/2024 8:28 AM CDT Plan of Treatment Not on file Insurance [facility] [facility] Advance Directives For more information, please contact: [phone] * Full Code (Latest Code Status on File) Date Activated Date Inactivated Comments 06/29/2022 8:01 AM 07/04/2022 12:44 PM Care Teams Learning Disabilities Teacher Relationship Specialty Start Date End Date Rachel Prabhakar MD [id number] [address] PCP - General Gastroenterology 06/06/24
--- OUTSIDE RECORDS SUMMARY | 2025-01-05 19:44 | XMS_ITS | Clinical Summary ---
Author Organization [facility] Address [address] [place] [id number] Care Team Providers Care Cloth Shrinking Machine Operator Name Role Phone Rachel Prabhakar MD Primary [...] (07/01/2022): Added automatically from request for surgery [id number] Essential hypertension 03/26/2022 Forehead laceration 11/28/2021 Diverticular disease 08/20/2016 Gastroesophageal reflux disease without esophagi tis 08/20/2016 Surgical History Surgery Date Site/Laterality Comments NO PAST SURGERIES SECTION, CLASSIC TUBAL LIGATION Bilateral Medical History Medical History Date Comments HTN (hypertension) Family History Medical History Relation Name Comments No Known Problems Father No Known Problems Mother Relation Name Status Comments Father Mother Social History Tobacco Use Types Packs/Day Years [...] 06/30/2022 How often do you attend chur ch or alevism services? Never 06/30/2022 Do you belong to any clubs o r organizations such as caodaism groups, unions, fraternal or athletic groups, or [...] money to buy more. Never true 06/30/20 Within the past 12 months, t he [...] place to sleep or slept in a halfway (including now)? No 06/30/2022 Personal Safety Answer Date Recorded Getting School Help Needed Not on file 10/02 Comments Unknown Sex and Gender Information Value Date Recorded Sex Assigned at Not on file Legal Sex Female 1:11 AM CDT Gender Identity Not on file Sexual Orientation Not on file Obstetrics History Last Filed Vital Signs Vital Sign Reading [...] 07/11/2024 8:28 AM CDT Plan of Treatment Health Maintenance Due Date Last Done Comments Breast Cancer Screening-Mammogram 1967 Cervical Cancer Screening 1967 Colon Cancer Screening-Colonoscopy 1967 Depression Screening 1967 Hepatitis C Screening 1967 DTaP/Tdap/Td Vaccine (1 - Tdap) 1978 Hepatitis B Screening 1985 Regular Well Visit/Exam 18-64 1985 Pneumococcal vaccine <65 (1 of 2 - PCV) 1986 Zoster Vaccine (1 of 2) 2017 Covid-19 Vaccine (4 - season) 2024 09/12/2021, 11/15/2020, 10/25/2020 Influenza Vaccine (#1) 2024 08/20/2016 Insurance [facility] [employer] [facility] Advance Directives For more information, please contact: [phone] * Full Code (Latest Code Status on File) Date Activated Date Inactivated Comments 06/29/2022 8:01 AM 07/04/2022 12:44 PM Care Teams Cloth Shrinking Machine Operator Relationship Specialty Start Date End Date Rachel Prabhakar MD [address] [place] [id number] PCP - General Gastroenterology 06/06/24
--- OUTSIDE RECORDS SUMMARY | 2025-01-05 19:44 | XMS_ITS | Data Portability ---
Author Organization [place] - [facility] [employer], Main Office Address [address] [place] [address] Assessment Encounter Date Assessment Date Assessment LastModified by Organization Details LastModified Time 08/17/2024 08/17/2024 Assessment: Nicotine smoke: 10/17 ppd [id number] = 5 pack years Hypertension Mod COPD Eosinophils 03/20/22 700/uL Dysphagia with food penetration Plan: The following were reviewed and explained to the patient: [facility] hospitalization 08/04/22 - 08/07/22 pneumonia Modified barium swallow 05/27/22 mild laryngeal penetration with thin liquids via straw sip Modified barium swallow 08/05/22 mild laryngeal penetration with thin liquids via cup or straw sip and pudding-consistenc y barium with solid food Chest CT 03/14/22 left thyromegaly, LLL consolidation/volu me loss, fatty liver Chest CT 05/26/22 bilateral mucus plugging, KEYONA, lingula, RLL tree-in bud densities, clearing of LLL atelectasis t 1 view 01/01/[address] 08/04/22 bilateral mucus plugging, RLL main stem bronchus occlusion Chest CT 01/01/23 bilateral pneumonia, no P. E. Chest CT 03/09/23 KEYONA, RUL, RLL infiltrates Chest 1 view 01/01/23 left suprahilar pneumonia Chest 2 views 09/18/23 RLL bronchovascular prominence Eosinophils 03/20/22 700/uL PFT 08/31/22 FEV1 1.50 L (61%), BD -20 mL = -1% Continue incentive spirometer x 5 minutes every 2 hours while awake to reverse and prevent further atelectasis. Continue handheld flutter valve oscillatory mucus removal device for bronchopulmonary clearance. General information on COPD was covered. COPD affects breathing. Self-care skills such as not smoking, using medications as prescribed, oxygen therapy, and knowing when to contact the healthcare provider are covered. Diaphragmatic breathing and pursed lip breathing are explained and demonstrated. Positive lifestyle changes are introduced. Following these self-care skills will help in the management of COPD so the patient can stay out of the hospital. Continue albuterol HFA 1 puff every 4 hours as needed. Breztri 160/9/4.8 mcg 2 puffs BID not covered by insurance. Continue Symbicort 160/4.5 mcg 2 puffs BID. Gargle after use. Continue Spiriva Respimat 2.5 mcg 2 puffs daily. The patient does not know how to accurately administer the inhalers. Today, the patient was shown how to take these medications. The proper technique for delivering these medications was instructed. The patient expressed a clear understanding and demonstrated back how to use these medications. Without the proper technique, the patient will not reap the benefits of these medications as the contents will not reach the lower airways as intended to be. 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 Her smoking history is not significant. We will check AAT as this was omitted during the last blood draw in 03/2022. Referral to [facility] Allergy and Immunology Dr. Pato Stanford for further evaluation and treatment of eosinophilia @ [address] [place] [address], [address], T[place] [phone], FAX [phone], , Adherence to therapy is advocated. Nonadherence may lead to treatment failure, further progression of the condition, and other complications. Hospitals admissions are often the result of individuals not taking prescription medications accurately. Alternatively, greater adherence to medication regimens have shown to lower rates of hospitalization and decrease total medical costs in patients with chronic medical conditions. Advocated influenza vaccination annually and pneumonia vaccination in 2031. Advocated weight loss through diet and exercise. Patient's ideal body weight according to height and gender is up to 130 lbs. Encouraged patient to adjust caloric intake to maintain/achieve ideal body weight, emphasizing on fruits, vegetables, whole grains, and fat-free or low-fat products. These include lean meats, poultry, fish, beans, eggs, and nuts and foods that are low in saturated fats, trans-fats, cholesterol, salt (sodium), and glycemic index. Stressed the importance of regular exercise up to the patient's capacity limits. In this case, we recommend 20 min daily walking, 2 days a week of resistance training. Patient to monitor BP daily and bring records to PCP for further management. Follow-up: 1 week after PFT Not available 08/17/2024 15:52:04 11/06/2024 11/06/2024 Assessment: Hypertension Nicotine smoke: 10/17 ppd 2442-8085 = 5 pack years Mild COPD Eosinophilia Dysphagia with food penetration Plan: The following were reviewed and explained to the patient: [facility] hospitalization 08/04/22 - 08/07/22 pneumonia Modified barium swallow 05/27/22 mild laryngeal penetration with thin liquids via straw sip Modified barium swallow 08/05/22 mild laryngeal penetration with thin liquids via cup or straw sip and pudding-consistenc y barium with solid food Chest CT 03/14/22 left thyromegaly, LLL consolidation/volu me loss, fatty liver Chest CT 05/26/22 bilateral mucus plugging, KEYONA, lingula, RLL tree-in bud densities, clearing of LLL atelectasis t 1 view 01/01/[address] 08/04/22 bilateral mucus plugging, RLL main stem bronchus occlusion Chest CT 01/01/23 bilateral pneumonia, no P. E. Chest CT 03/09/23 KEYONA, RUL, RLL infiltrates Chest 1 view 01/01/23 left suprahilar pneumonia Chest 2 views 09/18/23 RLL bronchovascular prominence Eosinophils 03/20/22 700/uL Eosinophils 08/17/24 660/uL PFT 08/31/22 FEV1 1.50 L (61%), BD -20 mL = -1% PFT 11/06/24 FEV1 2.26 L (94%), BD 40 mL = 1% Continue incentive spirometer x 5 minutes every 2 hours while awake to reverse and prevent further atelectasis. Continue handheld flutter valve oscillatory mucus removal device for bronchopulmonary clearance. General information on COPD was covered. COPD affects breathing. Self-care skills such as not smoking, using medications as prescribed, oxygen therapy, and knowing when to contact the healthcare provider are covered. Diaphragmatic breathing and pursed lip breathing are explained and demonstrated. Positive lifestyle changes are introduced. Following these self-care skills will help in the management of COPD so the patient can stay out of the hospital. Continue albuterol HFA 1 puff every 4 hours as needed. Breztri 160/9/4.8 mcg 2 puffs BID not covered by insurance. Continue Symbicort 160/4.5 mcg 2 puffs BID. Gargle after use. Continue Spiriva Respimat 2.5 mcg 2 puffs daily. The patient does not know how to accurately administer the inhalers. Today, the patient was shown how to take these medications. The proper technique for delivering these medications was instructed. The patient expressed a clear understanding and demonstrated back how to use these medications. Without the proper technique, the patient will not reap the benefits of these medications as the contents will not reach the lower airways as intended to be. 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 Her smoking history is not significant. We will check AAT as this was omitted during the last blood draw in 03/2022. Referral to [facility] Allergy and Immunology Dr. Pato Stanford for further evaluation and treatment of eosinophilia @ [address] [place] [address], [address], [place] [phone], FAX [phone], , Adherence to therapy is advocated. Nonadherence may lead to treatment failure, further progression of the condition, and other complications. Hospitals admissions are often the result of individuals not taking prescription medications accurately. Alternatively, greater adherence to medication regimens have shown to lower rates of hospitalization and decrease total medical costs in patients with chronic medical conditions. Advocated influenza vaccination annually and pneumonia vaccination CARLOS. Advocated weight loss through diet and exercise. Patient's ideal body weight according to height and gender is up to 130 lbs. Encouraged patient to adjust caloric intake to maintain/achieve ideal body weight, emphasizing on fruits, vegetables, whole grains, and fat-free or low-fat products. These include lean meats, poultry, fish, beans, eggs, and nuts and foods that are low in saturated fats, trans-fats, cholesterol, salt (sodium), and glycemic index. Stressed the importance of regular exercise up to the patient's capacity limits. In this case, we recommend 20 min daily walking, 2 days a week of resistance training. Patient to monitor BP daily and bring records to PCP for further management. Follow-up: 1 week after wad compressor operator adjuster consult Not available 11/06/2024 15:21:46 Plan of Treatment Reminders Order Date Submit Date Provider Last Modified By Organization Details Last Modified Time Details Appointments None recorded. Lab alpha-1-ant itrypsin (aat) phenotype, serum 2023 [facility] (Lab), [address] [place], [address], 4 15:15:32 eosinophil count, manual, blood (OBS) 2023 024 [facility] (Lab), [address] [place], [address], 4 18:24:19 Referral wad compressor operator adjuster referral - Please call patient to schedule. 2024 025 [email or web address] 82 Pato Stanford, [address], [address], 5 08:58:41 Procedures None recorded. Surgeries None recorded. Imaging None recorded. Medication Orders Symbicort 160 mcg-4.5 mcg/actuati on HFA aerosol inhaler 2024 025 [facility]/Pharmacy #[id number], [address], [place], [address], 5 15:21:15 Spiriva Respimat 2.5 mcg/actuati on solution for inhalation 2024 025 [facility]/Pharmacy #[id number], [address], [place], [address], 5 15:21:14 albuterol sulfate HFA 90 mcg/actuati on aerosol inhaler 2024 025 [facility]/Pharmacy #[id number], [address], [place], [address], 5 15:21:14 Symbicort 160 mcg-4.5 mcg/actuati on HFA aerosol inhaler 2023 024 [facility]/Pharmacy #[id number], [address], [place], [address], 4 15:08:10 Spiriva Respimat 2.5 mcg/actuati on solution for inhalation 2023 [facility]/Pharmacy #[id number], [address], [place], [address], 4 15:08:10 albuterol sulfate HFA 90 mcg/actuati on aerosol inhaler 2023 [facility]/Pharmacy #[id number], [address], [place], [address], 4 15:08:10 Patient TargetsNo targets recorded. Patient Instructions Encounter Date Encounter Id Patient Instructions Last Modified By Organization Details Last Modified Time 08/17/2024 [id number] complete PFT w/ post bronchodilator spirometry* - Please call patient to schedule. NICHOLE [id number] per payor website. 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 Referring Physician: Neymar العلي, Pulmonary Disease, Encounter Date: 11/06/2024 Results Created Date Observation Date Name Description Value Unit Range Abnormal Flag Note LastModifiedBy Organization Detail LastModifiedTime 03/15/2003/24/2022 CBC/C OMPLE TE BLD COUNT W/DIF F white blood cells 27.9 x10'3 /uL 4.2-10 .8 high Not Available [facility] (Lab) [address] [place], [address], 03/24/2022 13:18:02 03/15/2003/24/2022 CBC/C OMPLE TE BLD COUNT W/DIF F red blood cells 4.47 x10'6 /uL 3.80-5 .20 Not Available [facility] (Lab) [address] [place], [address], 03/24/2022 13:18:02 03/15/20 22 03/24/2022 CBC/C OMPLE TE BLD COUNT W/DIF F hemoglobin 12.9 g/dL 12.0-1 5.6 Not Available [facility] (Lab) [address] [place], [address], 03/24/2022 13:18:02 03/15/20 22 03/24/2022 CBC/C OMPLE TE BLD COUNT W/DIF F hematocrit 40.0 % 35.7-4 5.7 Not Available [facility] (Lab) [address] [place], [address], 03/24/2022 13:18:02 03/15/20 22 03/24/2022 CBC/C OMPLE TE BLD COUNT W/DIF F mean red cell volume 89.5 fL 82.0-9 9.0 Not Available [facility] (Lab) [address] [place], [address], 03/24/2022 13:18:02 03/15/20 22 03/24/2022 CBC/C OMPLE TE BLD COUNT W/DIF F mean red cell hemoglobin 28.9 pg 27.0-3 3.0 Not Available [facility] (Lab) [address] [place], [address], 03/24/2022 13:18:02 03/15/20 22 03/24/2022 CBC/C OMPLE TE BLD COUNT W/DIF F mean RBC HGB concentratio n 32.3 g/dL 31.0-3 6.0 Not Available [facility] (Lab) [address] [place], [address], 03/24/2022 13:18:02 03/15/20 22 03/24/2022 CBC/C OMPLE TE BLD COUNT W/DIF F red cell distribution width 13.6 % 11.8-1 5.5 Not Available [facility] (Lab) [address] [place], [address], 03/24/2022 13:18:02 03/15/20 22 03/24/2022 CBC/C OMPLE TE BLD COUNT W/DIF F platelets 421 x10'3 /uL 150-40 0 high Not Available [facility] (Lab) [address] [place], [address], 03/24/2022 13:18:02 03/15/20 22 03/24/2022 CBC/C OMPLE TE BLD COUNT W/DIF F mean platelet volume 9.9 fL 9.0-12 .4 Not Available [facility] (Lab) [address] [place], [address], 03/24/2022 13:18:02 03/15/20 22 03/24/2022 CBC/C OMPLE TE BLD COUNT W/DIF F neutrophils 80 % 39.0-7 2.0 high Not Available [facility] (Lab) [address] [place], [address], 03/24/2022 13:18:02 03/15/20 22 03/24/2022 CBC/C OMPLE TE BLD COUNT W/DIF F bands 3 % 0-3 Not Available [facility] (Lab) [address] [place], [address], 03/24/2022 13:18:02 03/15/20 22 03/24/2022 CBC/C OMPLE TE BLD COUNT W/DIF F lymphocytes 13 % 16.0-4 7.0 low Not Available [facility] (Lab) [address] [place], [address], 03/24/2022 13:18:02 03/15/20 22 03/24/2022 CBC/C OMPLE TE BLD COUNT W/DIF F monocytes 4 % 5.0-12 .0 low Not Available [facility] (Lab) [address] [place], [address], 03/24/2022 13:18:02 03/15/20 22 03/24/2022 CBC/C OMPLE TE BLD COUNT W/DIF F nucleated red blood cells 0.0 % -0 Not Available [facility] (Lab) [address] [place], [address], 03/24/2022 13:18:02 03/15/20 22 03/24/2022 CBC/C OMPLE TE BLD COUNT W/DIF F NRBC# 0.00 x10'3 /uL Not Available [facility] (Lab) [address] [place], [address], 03/24/2022 13:18:02 03/15/20 22 03/24/2022 CBC/C OMPLE TE BLD COUNT W/DIF F normal RBC morphology presen t Not Available [facility] (Lab) [address] [place], [address], 03/24/2022 13:18:02 03/17/20 22 03/14/2022 CT, angio gram, chest , w/ contr ast No observ ation record ed. [id number] Not Available 12/10/2022 01:06:58 03/27/20 22 03/26/2022 [facility] hosco py proce dure (PROC ) No observ ation record ed. [id number] Not Available 12/10/2022 01:06:58 08/26/20 22 08/05/2022 [place], modif ied angelica gordon study No observ ation record ed. [email or web address]. [id number] Not Available 12/10/2022 01:06:58 08/26/20 22 08/04/2022 CT, angio gram, chest , w/ contr ast No observ ation record ed. MIGRATION. Not Available 12/10/2022 01:06:58 08/26/20 22 05/27/2022 FL, modif ied angelica romero ow study No observ ation record ed. MIGRATION. [facility] (Radiology) [address] [place], [address], 12/10/2022 01:06:58 08/27/20 22 05/26/2022 CT, angio gram, chest , w/ contr ast No observ ation record ed. [id number] Not Available 12/10/2022 01:06:58 09/02/20 22 08/31/2022 PFT, compl ete No observ ation record ed. [id number] Not Available 12/10/2022 01:06:58 08/25/20 24 03/09/2023 CT, chest , w/o contr ast No observ ation record ed. BARCODE Not Available 2023 11:00:20 08/25/20 24 01/01/2023 CT, angio gram, chest , w/ contr ast No observ ation record ed. BARCODE Not Available 2023 11:40:33 08/25/20 24 01/01/2023 XR, chest , 1 view No observ ation record ed. BARCODE Not Available 2023 12:07:15 08/25/20 24 09/18/2023 XR, chest , 2 view No observ ation record ed. BARCODE Not Available 2023 12:07:15 11/08/19 25 11/06/2024 compl ete PFT w/ post [facility] hodil ator rene metry * No observ ation record ed. [facility] ([facility] Scheduling) [address] [place], [address], 11/08/2024 10:01:46 Result Notes None recorded. Problems Name Problem SNOMED Code Status Onset Date Resolution Date Notes Provider Name and Address Organization Details Recorded Time Mild chronic obstructive pulmonary disease 712678289 Active 2024 Neymar العلي MD [address], [place], [address], [employer] 15:07:46 Eosinophil count above reference range 904406356 Active 2024 Neymar العلي MD [address], [place], [address], [employer] 5 15:13:22 Notes:Medical History: COVID infections 07/2021, 10/2021 Rhinitis with postnasal drip IgE 23 IU/mL Eosinophils 660/uL Mild laryngeal penetration Left thyromegaly with nodules AAT PiMM 150 mg% Mild COPD Obesity Hypertension 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 Procedures Surgical History None recorded. Imaging Results Imaging Date Name Status LastModified by Organization Details LastModified Time 05/26/2022 CT, angiogram, chest, w/ contrast completed [id number] Information not available 12/10/2022 01:06:58 08/31/2022 PFT, complete completed [id number] Information not available 12/10/2022 01:06:58 08/05/2022 FL, modified barium swallow study completed [id number] Information not available 12/10/2022 01:06:58 08/04/2022 CT, angiogram, chest, w/ contrast completed [id number] Information not available 12/10/2022 01:06:58 05/27/2022 FL, modified barium swallow study completed [id number] [facility] (Radiology) [address] [place] [address], [address], 12/10/2022 01:06:58 03/14/2022 CT, angiogram, chest, w/ contrast completed [id number] Information not available 12/10/2022 01:06:58 03/26/2022 bronchoscopy procedure (PROC) completed [id number] Information not available 12/10/2022 01:06:58 03/09/2023 CT, chest, w/o contrast completed BARCODE Information not available 08/25/2024 11:00:20 01/01/2023 CT, angiogram, chest, w/ contrast completed BARCODE Information not available 08/25/2024 11:40:33 01/01/2023 XR, chest, 1 view completed BARCODE Informa tion not available 08/25/2024 12:07:15 09/18/2023 XR, chest, 2 view completed BARCODE Informa tion not available 08/25/2024 12:07:15 11/06/2024 complete PFT w/ post bronchodilator spirometry* completed BARCODE [facility] ([facility] Scheduling) [address] [place], [address], 11/08/2024 10:01:46 Procedure Notes None recorded. Medical Equipment None Reported. Allergies Allergen ID Allergen Name Allergen Category Reaction Reaction Severity Criticality Documentation Date Start Date Code Code System Note Provider Name and Address Organization Details Recorded Time 82308 acetamino phen / hydrocodo ne medicatio n nausea Not available Not available 12/10/2022 75181 2 RxNorm Not Available [facility] 3 01:06:47 20713 codeine medicatio n nausea Not available Not available 12/10/2022 2670 RxNorm Not Available [facility] 3 01:06:47 Medications Name Sig Start Date Stop Date Status Note LastModified by Organization Details LastModified Time cyclobenzap rine 10 mg tablet TAKE 1 TABLET BY MOUTH 3 TIMES A DAY NEEDED 03/18 completed Not Available Not Available Not Available famotidine 40 mg tablet TAKE 1 TABLET BY MOUTH EVERY DAY active Not Available Not Available No t Available amlodipine 5 mg tablet TAKE 1 TABLET BY MOUTH EVERY DAY 08/17 completed Not Available Not Available Not Available guaifenesin 200 mg tablet TAKE 1 TABLET BY MOUTH TWICE A DAY 08/31 completed Not Available Not Available Not Available nifedipine ER 60 mg tablet,exte nded release 24 hr TAKE 1 TABLET BY MOUTH EVERY DAY 08/17 completed Not Available Not Available Not Available amlodipine 10 mg tablet TAKE 1 TABLET BY MOUTH EVERY DAY active Not Available Not Available No t Available ibuprofen 600 mg tablet TAKE 1 TABLET ORAL ROUTE EVERY 6 HOURS NEEDED TAKE WITH FOOD 08/17 completed Not Available Not Available Not Available levofloxaci n 500 mg tablet 08/31 completed Not Available Not Available Not Available levofloxaci n 750 mg tablet TAKE 1 TABLET BY MOUTH EVERY DAY 08/31 completed Not Available Not Available Not Available methylpredn isolone 4 mg tablets in a dose pack TAKE 6 TABLETS ON DAY 1 DIRECTED ON PACKAGE AND DECREASE BY 1 TAB EACH DAY FOR A TOTAL OF 6 DAYS 08/31 completed Not Available Not Available Not Available albuterol sulfate HFA 90 mcg/actuati on aerosol inhaler Inhale 1 puff every 4 hours by inhalatio n route as needed. active Not Available Not Available No t Available ondansetron 4 mg disintegrat ing tablet DISSOLVE 1 TABLET ON TONGUE EVERY 8 HOURS NEEDED FOR NAUSEA OR VOMITING. 03/18 completed Not Available Not Available Not Available cefdinir 300 mg capsule TAKE 1 CAPSULE BY MOUTH EVERY 12 HOURS FOR 10 DASY. 03/18 completed Not Available Not Available Not Available doxycycline hyclate 100 mg tablet TAKE 1 TABLET ORAL ROUTE 2 TIMES PER DAY FOR 10 DAYS 08/17 completed Not Available Not Available Not Available Symbicort 160 mcg-4.5 mcg/actuati on HFA aerosol inhaler Inhale 2 puffs twice a day by inhalatio n route. active Not Available Not Available No t Available Spiriva Respimat 2.5 mcg/actuati on solution for inhalation Inhale 2 puffs every day by inhalatio n route. active Not Available Not Available No t Available Breztri Aerosphere 160 mcg-9mcg-4. 8mcg/actuat ion HFA aerosol inhaler Inhale by inhalatio n route for 90 days. 09/25 completed Not Available Not Available Not Available Vitals Date Recorded Body mass index (BMI) Heart rate Body height Oxygen saturation Oxygen saturation in Arterial blood by Pulse oximetry Heart rate Respiratory rate Body temperature Body weight Systolic blood pressure Diastolic blood pressure Provider Name and Address Organization Details Last Updated DateTime 2 35.7 kg/m2 103 /min 162.56 cm 96 % 96 % 103 /min 18 /min 97.2 [degF] 55963.2 1 g 140 mm[Hg] 88 mm[Hg] Not Available [facility] 3 01:05:35 Date Recorded Body mass index (BMI) Body height Oxygen saturation Oxygen saturation in Arterial blood by Pulse oximetry Heart rate Body temperature Body weight Systolic blood pressure Diastolic blood pressure Provider Name and Address Organization Details Last Updated DateTime 2 31.4 kg/m2 162.56 cm 95 % 95 % 93 /min 98.2 [degF] 24370.4 g 168 mm[Hg] 118 mm[Hg] Not Available [facility] 3 01:05:35 Date Recorded Body mass index (BMI) Heart rate Body height Oxygen saturation Oxygen saturation in Arterial blood by Pulse oximetry Heart rate Respiratory rate Body temperature Body weight Systolic blood pressure Diastolic blood pressure Provider Name and Address Organization Details Last Updated DateTime 3 32.4 kg/m2 100 /min 162.56 cm 97 % 97 % 100 /min 15 /min 98.7 [degF] 38839.2 4 g 142 mm[Hg] 92 mm[Hg] Not Available [facility] 3 01:05:35 Date Recorded Body weight Body mass index (BMI) Body height Body temperature Heart rate Oxygen saturation Oxygen saturation in Arterial blood by Pulse oximetry Systolic blood pressure Diastolic blood pressure Provider Name and Address Organization Details Last Updated DateTime 4 14070.5 8 g 37.6 kg/m2 160.02 cm 98.2 [degF] 92 /min 97 % 97 % 148 mm[Hg] 92 mm[Hg] Radha Juan MA [place] [employer] 4 15:31:24 Date Recorded Heart rate Respiratory rate Provider N jose l and Address Organization Details Last Updated DateTime 08/17/2024 92 /min 15 /min Neymar العلي MD [address], [address], [place] [employer] [facility] [employer] 08/17/2024 15:41:16 Date Recorded Body height Body mass index (BMI) Body weight Body temperature Heart rate Oxygen saturation Oxygen saturation in Arterial blood by Pulse oximetry Systolic blood pressure Diastolic blood pressure Provider Name and Address Organization Details Last Updated DateTime 5 160.02 cm 37.6 kg/m2 08035.5 8 g 97.7 [degF] 71 /min 97 % 97 % 136 mm[Hg] 90 mm[Hg] Radha Juan MA ND [employer] [facility] [employer] 5 15:09:14 Date Recorded Heart rate Respiratory rate Provider N jose l and Address Organization Details Last Updated DateTime 11/06/2024 71 /min 14 /min Neymar العلي MD [address] [facility], [place], [address], [place] [facility] [employer] 11/06/2024 15:15:54 Social History Question Answer Notes LastModified by Organizat ion Details LastModified Time Tobacco Smoking Status Former Smoker Not Available [facility] 12/10/2022 01:04:48 What Is Your Level Of Alcohol Consumption? None [id number] Information not available 12/10/2022 What Is Your Level Of Caffeine Consumption? Moderate [id number] Information not available 12/10/2022 In The 14 Days Before Symptom Onset, Have You Had Close Contact With A Laboratory-confir med COVID-19 While That Case Was Ill? No Information not available 11/06/2024 In The 14 Days Before Symptom Onset, Have You Had Close Contact With A Person Who Is Under Investigation For COVID-19 While That Person Was Ill? No Information not available 08/17/2024 Are You Currently Employed? No Information not available 08/17/2024 What Type Of Diet Are You Following? REGULAR [id number] Information not available 12/10/2022 Do You Have An Electrostatic Air Filter? No [id number] Information not available 12/10/2022 Do You Have A Humidifier? No [id number] 8519 Information not available 12/10/2022 Where Do You Live[facility] [id number] Information not available 12/10/2022 Do You Have Moisture Problems In Your Home? Yes [id number] 0438 Information not available 12/10/2022 What Was The Date Of Your Most Recent Tobacco Screening? 11/06/2024 Information not available 11/06/2024 Do You Have Any Pets? Yes [id number].[id number] 7350 Information not available 12/10/2022 Do You Use Your Seat Belt Or Car Seat Routinely? Yes Information not available 08/17/2024 Do You Have Smoke And Carbon Monoxide Detectors In Your Home? Yes [id number] Information not available 12/10/2022 Are You Passively Exposed To Smoke? Yes [id number] 9446 Information not available 12/10/2022 Do You Feel Stressed (tense, Restless, Nervous, Or Anxious, Or Unable To Sleep At Night)? [id number] Information not available 08/17/2024 Do You Use Any Illicit Or Recreational Drugs? No [id number] 1371 Information not available 12/10/2022 Do You Use Sunscreen Routinely? Yes [id number].[id number] 0293 Information not available 12/10/2022 Have You Recently Traveled Abroad? No [id number].[id number] 9244 Information not available 12/10/2022 Do You Have Any Dietary Restrictions? No MIGRATION.[id number] 5377 Information not available 12/10/2022 Sex: Unknown Functional Status Question Answer Note LastModified by Organizat ion Details LastModified Time What is your exercise level? Occasional Information not available 08/17/2024 Mental Status None recorded. Family History Relationship Description Onset Age of this Age Resolved Age Notes LastModified by Organization Details LastModified Time Mother Malignant neoplasm of skin [id number] Not available 12/10/2022 01:05:03 Maternal Grandfather Cerebrovascu lar accident [id number] Not available 12/10/2022 01:05:03 Paternal Grandfather Cerebrovascu lar accident [id number].855 [id number] Not available 12/10/2022 01:05:03 Maternal Grandmother Diabetes mellitus [id number] Not available 12/10/2022 01:05:03 Maternal Aunt Malignant tumor of lung Not available 2024 15:19:30 Medical History No medical history recorded. Gynecological HistoryNo gynecological history recorded. Obstetrics History GPAL:G 0 P 0 0 0 0 Immunizations Vaccine Type Date Status Note Provider Nam e and Address Organization Details Recorded Time COVID-19, mRNA, LNP-S, PF, 10 mcg/0.2 mL dose, dyan-sucrose 09/12/2021 completed Not Available [facility] 023 01:06:45 COVID-19, mRNA, LNP-S, PF, 10 mcg/0.2 mL dose, dyan-sucrose 11/15/2020 completed Not Available [facility] 023 01:06:45 COVID-19, mRNA, LNP-S, PF, 10 mcg/0.2 mL dose, dyan-sucrose 10/25/2020 completed Not Available [facility] 023 01:06:45 Past Encounters Encounter ID Performer Location Encounter Start Date Encounter Closed Date Diagnosis/Indication Diagnosis SNOMED-CT Code Diagnosis ICD10 Code Diagnosis Note [id number] [facility] [address] [address] 03/18/2022 00:00:00 03/18/2022 15:12:13 [id number] [facility] [address] [address] 08/31/2022 00:00:00 09/25/2022 13:49:06 [id number] [facility] [address] [address] 10/13/2022 00:00:00 10/13/2022 12:17:58 [id number] Neymar العلي MD [facility] [address] [address] 08/17/2024 14:22:40 10/09/2024 09:27:21 Moderate chronic obstructive pulmonary disease 325519416 J44.9 [id number] Neymar العلي MD [facility] [address] [address] 11/06/2024 14:51:20 11/06/2024 16:08:21 Mild chronic obstructive pulmonary disease 235328473 J44.9 Eosinophil count above reference range 371796141 D72.10 Health Concerns Section Related Observation LastModified by Organization Detai ls LastModified Time None Recorded Concern Status LastModified by Organization Details LastModified Time None Recorded Advance Directives Directive None Recorded Payers Encounter Date Sequence Insurance Name Policy Number Policy Kamara Covered Member ID Kamara Member ID Guarantor Name 08/17/2024 1 [employer] ON [place] AFTER 2020 (MEDICAID REPLACEMENT - HMO) Mary Redman [id number] Mary Gustafson Roleginna 11/06/2024 1 [place] ([place]ICAID REPLACEMENT - HMO) Mary Leachn [id number] Mary A Rolen Notes Date Note Type Note Provider Name and Address Organization Details Recorded Time 08/17/2024 text/html Primary care/Ref erring provider: Rachel Prabhakar, MDPatient is here to go over her mod COPD management.Initial development of shortness of breath: uration of shortness of breath: 6 monthsCondition of shortness of breath: stableTiming of shortness of breath: noneFrequency: every hourLimits activities: yesAggravating factors: walking, taking a showerAlleviating factors: restModified [employer] [place] (mMRC) Dyspnea Scale - Grade 2Grade 0 I only get breathless with strenuous exercise .Grade 1 I get short of breath when hurrying on the level or walking up a slight hill .Grade 2 I walk slower than people of the same age on the level because of breathlessness or have to stop for breath when walking at my own pace on the level .Grade 3 I stop for breath after walking about 100 yards or after a few minutes on the level .Grade 4 I am too breathless to leave the house or I am breathless when dressing .Treatment history:Albuterol HFA 1 puff every 4 hours as needed since ymbicort 160/4.5 mcg 2 puffs BID since ther symptoms:Productive cough: yellowishWheezing: yesChest tightness: yesOrthopnea: 3-pillowFrequent throat clearing or swallowing: noPalpitations: yesHeartburn: yesDysphagia: yes, with burgerEdema: yesEnvironmental exposures:Nicotine smoke: 10/17 ppd 8889-6025 = 5 pack yearsPaint: noDye: noDust mites: yesMold: yesDamp basement: noWood burning stove: noAnimal dander: dog and catCockroaches: noPollen: yesArsenic: noAsbestos: yes 2004-2014Beryllium: noCadmium: noChromium: noCoal smoke: noDiesel fumes: noNickel: noSilica: noSoot: noEPWORTH SLEEPINESS SCALE (ESS)CHANCE OF DOZING SCORE0 = would never doze1 = slight chance of dozing2 = moderate chance of dozing3 = high chance of dozingSITUATION AND CHANCE OF DOZINGSitting and reading - 3Watching television - 3Sitting inactive in a public place (e.g. a theater or meeting) - 3As a passenger in a car for an hour without a break - 3Lying down to rest in the afternoon when circumstances permit - 3Sitting and talking to someone - 1Sitting quietly after lunch without alcohol - 1In a car, while stopped for a few minutes in the traffic - 0TOTAL SCORE 17Subjectively, patient has a high chance of dozing. Neymar العلي MD [address] [facility] [address], [place], [address], [place] [facility] [employer] 08/17/2024 15:53:43 11/06/2024 text/html Primary care/Ref erring provider: Rachel Prabhakar MDPatitahir is here to go over her COPD management.Initial development of shortness of breath: uration of shortness of breath: 3 yearsCondition of shortness of breath: improvedTiming of shortness of breath: noneFrequency: once a dayLimits activities: yesAggravating factors: walking, taking a showerAlleviating factors: restModified Medical [employer] [place] (mMRC) Dyspnea Scale - Grade 2Grade 0 I only get breathless with strenuous exercise .Grade 1 I get short of breath when hurrying on the level or walking up a slight hill .Grade 2 I walk slower than people of the same age on the level because of breathlessness or have to stop for breath when walking at my own pace on the level .Grade 3 I stop for breath after walking about 100 yards or after a few minutes on the level .Grade 4 I am too breathless to leave the house or I am breathless when dressing .Treatment history:Albuterol HFA 1 puff every 4 hours as needed since ymbicort HFA 160/4.5 mcg 2 puffs BID since 08/2022 Spiriva Respimat 2.5 mcg 2 puffs daily since 10/2022Other symptoms:Productive cough: yellowishWheezing: yesChest tightness: yesOrthopnea: 3-pillowFrequent throat clearing or swallowing: noPalpitations: yesHeartburn: yesDysphagia: yes, with burgerEdema: yesEnvironmental exposures:Nicotine smoke: 10/17 ppd 5087-4608 = 5 pack yearsPaint: noDye: noDust mites: yesMold: yesDamp basement: noWood burning stove: noAnimal dander: dog and catCockroaches: noPollen: yesArsenic: noAsbestos: yes 2004-2014Beryllium: noCadmium: noChromium: noCoal smoke: noDiesel fumes: noNickel: noSilica: noSoot: noEPWORTH SLEEPINESS SCALE (ESS)CHANCE OF DOZING SCORE0 = would never doze1 = slight chance of dozing2 = moderate chance of dozing3 = high chance of dozingSITUATION AND CHANCE OF DOZINGSitting and reading - 2Watching television - 2Sitting inactive in a public place (e.g. a theater or meeting) - 2As a passenger in a car for an hour without a break - 3Lying down to rest in the afternoon when circumstances permit - 3Sitting and talking to someone - 0Sitting quietly after lunch without alcohol - 0In a car, while stopped for a few minutes in the traffic - 0TOTAL SCORE 12Subjectively, patient has a moderate chance of dozing. Neymar العلي MD [address] [facility] [address], [place], [address], [facility] [employer] 11/06/2024 15:28:11 OBGyn Episode No OBEpisode recorded.
--- OUTSIDE RECORDS SUMMARY | 2025-01-05 19:44 | XMS_ITS | Clinical Summary ---
Author Organization [facility] Address [address] [place] [place] [address] Care Team Providers Care Sustainability Purchasing Agent Name Role Phone Unavailable Primary Care Provider Unavailabl e Source Comments [facility],non-owned Affiliates and Associated Physician Practices is amultiple site organization consisting of ambulatory clinics and hospital sitesin [place], [place] and [place]. This disclosure is being madepursuant to the Care Everywhere program and may not contain all information available regarding this patient. Last updated 18.[facility] Allergies Active Allergy Reactions Criticality Noted Date Comments Codeine Other 11/18/2021 unk Hydrocodone-Acetaminophen Other 11/18/2021 unk Medications Be aware that medications may not be up to date on this document. Always verify current medications with the patient. No known medications Active Problems Problem Noted Date Diagnosed Date Forehead laceration 11/28/2021 Social History Tobacco Use Types Packs/Day Years Used Date Smoking Tobacco: Every Day Smokeless Tobacco: Never Alcohol Use Standard Drinks/Week Comments Not Currently 0 (1 standard drink = 0.6 oz pur e alcohol) AUDIT-C Answer Date Recorded Q1: How often do you have a drink containing alc ohol? Never 11/18/2021 Average Number of Drinks Not on file 022 Frequency of Binge Drinking Not on file 05/2022 Sex and Gender Information Value Date Recorded Sex Assigned at Not on file Gender Identity Not on file Sexual Orientation Not on file Last Filed Vital Signs Vital Sign Reading Time Taken Comments Blood Pressure 171/120 12/19/2021 2:15 PM [facility] Pulse 118 12/19/2021 2:15 PM [facility] Temperature 36.4 C (97.5 F) 12/19/2021 2:15 PM [facility] Respiratory Rate 17 11/19/2021 1:30 AM [facility] Oxygen Saturation 98% 12/19/2021 2:15 PM [facility] Inhaled Oxygen Concentration - - Weight 96.6 kg (213 lb) 12/19/2021 2:15 PM [facility] Height 162.6 cm (5' 4 ) 12/19/2021 2:15 PM [facility] Body Mass Index 36.56 12/19/2021 2:15 PM [facility] Plan of Treatment Health Maintenance Due Date Last Done Comments COLOGUARD (AGES 45-75) - COL ON CA SCREENING 1967 COLON MONITORING 1967 COLONOSCOPY - COLON CA SCREENING 1967 CT COLONOGRAPHY - COLON CA SCREENING 1967 Colorectal Cancer Screening 1967 FIT - COLON CA SCREENING 1967 FLEX SIG - COLON CA SCREENING 1967 LIPID TESTING 1967 MAMMOGRAM 1967 PAP SMEAR 1967 HIV SCREENING 1982 HEPATITIS C SCREENING 06/13/1985 DTAP/TDAP/TD VACCINES (1 - Tdap) 1986 HEPATITIS B VACCINE (1 of 3 - 19+ 3-dose series) 1986 PNEUMOCOCCAL VACCINE 50+ (1 of 2 - PCV) 1986 PNEUMOCOCCAL VACCINE (1 of 2 - PCV) 1986 ZOSTER VACCINE (1 of 2) 2017 COVID-19 VACCINE (2 - 2023-2 5 season) 2024 10/25/2020 INFLUENZA VACCINE (#1) 2024 DEPRESSION SCREENING 10/11/2024 SCREENING FOR DIABETES 11/18/2024 11/18/2021 HIB VACCINE Aged Out No longer eligi ble based on patient's age to complete this topic HPV VACCINE Aged Out No longer eligi ble based on patient's age to complete this topic MENINGOCOCCAL (Group B) VACC INE SHARED DECISION-MAKING Aged Out No longer eligibl e based on patient's age to complete this topic MENINGOCOCCAL GROUPS A/C/Y/W VACCINE Aged Out No longer eligible b ased on patient's age to complete this topic Procedures Procedure Name Priority Date/Time Associated Diagnosis Comments COMPREHENSIVE METABOLIC PANEL STAT 11/18/2021 10:24 PM [facility] from Last 3 Months or Most Recently Relevant to Health Maintenance Results * (ABNORMAL) COMPREHENSIVE METABOLIC PANEL (11/18/2021 10:24 PM [facility]) BUN 15 7 - 26 mg/dL 11/18/2021 10:56 PM [facility] Creatinine 0.96 0.56 - 0.96 mg/dL 11/18/2021 10:56 PM [facility] Sodium 142 136 - 145 mmol/L 11/18/2021 10:56 PM [facility] Potassium 3.3(L) 3.5 - 4.5 mmol/L 11/18/2021 10:56 PM [facility] Chloride 108(H) 98 - 107 mmol/L 11/18/2021 10:56 PM [facility] CO2 23 22 - 29 mmol/L 11/18/2021 10:56 PM [facility] Glucose 101 70 - 115 mg/dL 11/18/2021 10:56 PM [facility] Calcium 8.4 8.4 - 10.2 mg/dL 11/18/2021 10:56 PM [facility] Protein Total 6.8 6.0 - 8.3 g/dL 11/18/2021 10:56 PM [facility] Albumin 3.3(L) 3.4 - 5.0 g/dL 11/18/2021 10:56 PM [facility] Bilirubin Total 0.5 0.2 - 1.2 mg/dL 11/18/2021 10:56 PM [facility] Alkaline Phosphatase 91 40 - 150 U/L 11/18/2021 10:56 PM [facility] ALT 17 5 - 55 U/L 11/18/2021 10:56 PM [facility] AST 14 5 - 34 U/L 11/18/2021 10:56 PM [facility] Anion Gap 14 8 - 18 11/18/2021 10:56 PM [facility] BUN/Creatinine Ratio 16 7 - 23 11/18/2021 10:56 PM [facility]3] [facility]ATORY [facility] Osmolality Calculated 295 270 - 300 mOsm/kg 11/18/2021 10:56 PM [facility] Albumin/Globulin Ratio 0.9(L) 1.1 - 2.3 11/18/2021 10:56 PM [facility] eGFR by CKD-EPI 70(L) >=90 mL/min/1.7 3 m2 11/18/2021 10:56 PM [facility] Blood BLOOD SPECIMEN / Unknown Venipuncture / Unknown 11/18/2021 10:24 PM [facility] 11/18/2021 10:29 PM [facility] Samantha Saavedra MD LAB - CHEMISTRY CATALINA MACIAS [facility] Organization Address City/State/ZIP Co de Phone Number [facility] [address] [place] [address], [facility] [phone] from Last 3 Months or Most Recently Relevant to Health Maintenance
[2025-01-05 19:45] VITALS: BP 153/93; PULSE 114; RESP 18; TEMP 36.5; O2SAT 98
--- OUTSIDE RECORDS SUMMARY | 2025-01-05 20:24 | XMS_ITS | CONTINUITY OF CARE DOCUMENT ---
Author Name krista velacso Address Unknown Organization [facility] Address [address] [facility] [address] [facility] [address] [place] [address] Phone [phone] Care Team Providers Care Warehouse Lead Name Role Phone Erasto ARROYO, Renetta Unavailable [phone] PINA CROOK MD Unavailable PINA CROOK MD Unavailable [phone] INSURANCE PROVIDERS Payer name Policy type / Coverage type [place] red constitution party ID AETNA [facility] Medicaid [id number]
--- OUTSIDE RECORDS SUMMARY | 2025-01-05 20:24 | XMS_ITS | Clinical Summary ---
Author Organization [facility] [employer] Address [address] [facility] [place] [address] Care Team Providers Care Rope Coiling Machine Operator Name Role Phone Unavailable Primary Care Provider Unavailabl e Source Comments [facility] [employer],non-owned Affiliates and Associated Physician Practices is amultiple site organization consisting of ambulatory clinics and hospital sitesin [place], [place], [place] and [place]. This disclosure is being madepursuant to the Care Everywhere program and may not contain all information available regarding this patient. Last updated 18.[facility] [employer] Allergies Active Allergy Reactions Criticality Noted Date [...] Comments Blood Pressure 171/120 12/19/2021 2:15 PM [facility] Pulse 118 12/19/2021 2:15 PM [facility] Temperature 36.4 C (97.5 F) 12/19/2021 2:15 PM [facility] Respiratory Rate 17 11/19/2021 1:30 AM [facility] Oxygen Saturation 98% 12/19/2021 2:15 PM [facility] Inhaled Oxygen Concentration - - Weight 96.6 kg (213 lb) 12/19/2021 2:15 PM [facility] Height 162.6 cm (5' 4 ) 12/19/2021 2:15 PM [facility] Body Mass Index 36.56 12/19/2021 2:15 PM [facility] Plan of Treatment Health Maintenance Due Date [...] COMPREHENSIVE METABOLIC PANEL STAT 11/18/2021 10:24 PM [facility] from Last 3 Months or Most Recently Relevant to Health Maintenance Results * (ABNORMAL) COMPREHENSIVE METABOLIC PANEL (11/18/2021 10:24 PM [facility]) BUN 15 7 - 26 mg/dL 11/18/2021 [...] 16 7 - 23 11/18/2021 10:56 PM [facility]ORATORY [facility] Osmolality Calculated 295 270 - 300 mOsm/kg 11/18/2021 10:56 PM [facility] Albumin/Globulin Ratio 0.9(L) 1.1 - 2.3 11/18/2021 10:56 PM [facility] eGFR by CKD-EPI 70(L) >=90 mL/min/1.7 3 m2 11/18/2021 10:56 PM [facility] Blood BLOOD SPECIMEN / Unknown Venipuncture / Unknown 11/18/2021 10:24 PM [facility] 11/18/2021 10:29 PM [facility] Samantha Saavedra MD LAB - CHEMISTRY CATALINA MACIAS [facility] Organization Address City/State/ZIP Co de Phone Number [facility] [address] [place] [address], [facility] [phone] from Last 3 Months or Most Recently Relevant to Health Maintenance
--- OUTSIDE RECORDS SUMMARY | 2025-01-05 20:24 | XMS_ITS | Referral Summary ---
Author Organization [facility] Address [address] [place] [address] Care Team Providers Care Electric Meter Repairer Apprentice Name Role Phone Rachel Prabhakar MD Primary [...] (07/01/2022): Added automatically from request for surgery [id number] Essential hypertension 03/26/2022 Forehead laceration 11/28/2021 Diverticular [...] How often do you attend chur or anglican services? Never 06/30/2022 Do you belong to [...] place to sleep or slept in a nursing home (including now)? No 06/30/2022 Personal Safety Answer [...] of Treatment Not on file Insurance AETNA [facility] AETNA [facility] AETNA [facility] Advance Directives For more information, please contact: [phone] * Full Code (Latest Code Status on File) Date Activated Date Inactivated Comments 06/29/2022 8:01 AM 07/04/2022 12:44 PM Care Teams Electric Meter Repairer Apprentice Relationship Specialty Start Date End Date Rachel Prabhakar MD [address] [address] PCP - General Gastroenterology 06/06/24
--- OUTSIDE RECORDS SUMMARY | 2025-01-05 20:24 | XMS_ITS | Clinical Summary ---
Author Organization [facility] Address [address] [place] [address] Care Team Providers Care Metal Melter Name Role Phone Rachel Prabhakar MD Primary [...] (07/01/2022): Added automatically from request for surgery [id number] Essential hypertension 03/26/2022 Forehead laceration 11/28/2021 Diverticular [...] often do you attend chur ch or synagogue services? Never 06/30/2022 Do you belong to any clubs o r organizations such as yarsani groups, unions, fraternal or athletic groups, or [...] place to sleep or slept in a fpc (including now)? No 06/30/2022 Personal Safety Answer [...] 10/25/2020 Influenza Vaccine (#1) 2024 08/20/2016 [facility]ETNA [facility] Advance Directives For more information, please contact: [phone] * Full Code (Latest Code Status on File) Date Activated Date Inactivated Comments 06/29/2022 8:01 AM 07/04/2022 12:44 PM Care Teams Metal Melter Relationship Specialty Start Date End Date Rachel Prabhakar MD [address] [place] [address] PCP - General Gastroenterology 06/06/24
--- NOTE | 2025-01-05 20:31 | ED.FEVER ---
HPI - Fever General Chief Complaint: Fever Stated Complaint: Feverx 3days Time Seen by Provider: 01/05/25 19:56 History of Present Illness HPI Narrative: Patient is a 59-year-old female who presents to the ER with 3 day history of fever. She reports her T-max was 101. Patient endorses a headache, decreased p.o. intake, nausea, dark urine, body aches. She denies any coughing, emesis, sore throat, back pain. Patient endorses a history of COPD, pneumonia, diverticulitis. She reports she took Excedrin at home which helped she her discomfort slightly. Related Data Allergies Allergy/AdvReac Type Severity Reaction Status Date / Time codeine Allergy Intermediate Itching Verified 01/05/25 19:43 hydrocodone Allergy Unknown Unknown Verified 01/05/25 19:43 Review of Systems Review of Systems: All systems reviewed & are unremarkable except as noted in HPI and below Exam Narrative: GENERAL: Ill-appearing, well-nourished, non-toxic, in no acute distress. HEAD: Normocephalic, atraumatic. NECK: Supple. No adenopathy, no masses. RESPIRATORY: Airway patent, respirations nonlabored. Clear to auscultation bilaterally, no rales, rhonchi, slight wheezing (baseline for pt). CARDIOVASCULAR: Tachycardia, regular rhythm without murmurs, rubs, or gallops. Peripheral pulses 2+ and equal bilaterally. ABDOMINAL: Soft, nontender, nondistended, no hepatosplenomegaly. Normoactive BS. MUSCULOSKELETAL: Moves all extremities. Strength/ROM intact without gross deformities. SKIN: Warm, dry, normal color. No rashes. NEURO: A&O X3. Speech clear. Cranial nerves II-XII intact. No ataxic movements. PSYCHIATRIC: Appropriate mood, flat affect. Normal interaction. Course Vital Signs Vital signs: Vital Signs Temperature 36.5 C 01/05/25 19:45 Pulse Rate 114 H 01/05/25 19:45 Respiratory Rate 18 01/05/25 19:45 Blood Pressure 153/93 H 01/05/25 19:45 Pulse Oximetry 98 01/05/25 19:45 Oxygen Delivery Room Air 01/05/25 19:45 Temperature 36.5 C 01/05/25 19:45 Pulse Rate 114 H 01/05/25 19:45 Respiratory Rate 18 01/05/25 19:45 Blood Pressure 153/93 H 01/05/25 19:45 Pulse Oximetry 98 01/05/25 19:45 Oxygen Delivery Room Air 01/05/25 19:45 MDM - Fever MDM Narrative Medical decision making narrative: Patient is a 59-year-old female who presents to the ER with 3 day history of fever. She reports her T-max was 101. Patient endorses a headache, decreased p.o. intake, nausea, dark urine, body aches. She denies any coughing, emesis, sore throat, back pain. Patient endorses a history of COPD, pneumonia, diverticulitis. She reports she took Excedrin at home which helped she her discomfort slightly. Labs Ordered: UA, COVID/flu/RSV Imaging Ordered: Chest x-ray Medications Ordered: Toradol 60 mg IM, Tylenol 1000 mg p.o., cefdinir 300 mg p.o. Results: Patient's urinalysis indicates she has UTI. Patient's chest x-ray indicates Prominent markings in the right lung base which may be due to atelectasis. Otherwise, No acute cardiopulmonary pathology. Diagnosis: Urinary tract infection Patient Education/Shared MDM: Results of lab work and x-ray shared with patient. She endorses improvement following medication administration. Patient strongly advised to maintain hydration status upon discharge and follow-up with her PCP as soon as possible. She will be discharged home with a prescription for Cefdinir and Pyridium. Strict return precautions provided, especially if pt's symptoms aren't improving after 24-48 hours. Patient verbalized understanding is in agreement with plan. Vital signs stable at time of discharge. All questions answered. Differential Diagnosis Differential diagnosis: Likely gastroenteritis, community acquired pneumonia, pyelonephritis, viral infection and influenza Lab Data Attestation: I reviewed the patient's lab results. Labs: Lab Results 01/05/25 Range/Units 20:37 Urine Color Yellow (Yellow) Urine Appearance Clear (Clear) Urine pH 6.0 (5.0-9.0) Ur Specific [place] 1.025 (1.001-1.035) Urine Protein 2+ H (Negative) mg/dL Urine Glucose (UA) Negative (Negative) mg/dL Urine Ketones Negative (Negative) mg/dL Ur Blood (Man) 3+ H (Negative) Urine Nitrate Negative (Negative) Urine Bilirubin 1+ H (Negative) Urine Urobilinogen 1.0 (<2.0) mg/dL Leukocyte Esterase Rfl 1+ H (Negative) JACQUELINE/UL Urine RBC None seen (0-2) /hpf Urine WBC >100 (0-3) /hpf Urine WBC Clumps Present H (None) /hpf Ur Squamous Epith Cells Rare (Few) /hpf Urine Bacteria 4+ H (None) /hpf Urine Mucus Present /lpf Influenza A (RT-PCR) Negative (Negative) Influenza B (RT-PCR) Negative (Negative) RSV (RT-PCR) Negative (Negative) SARS-CoV-2 RNA (RT-PCR) Negative (Negative) Imaging Data Attestation: I personally reviewed and interpreted this imaging study as follows: Radiologist's impression: Impressions Chest X-Ray 01/05/25 20:56 IMPRESSION: Prominent markings in the right lung base which may be due to atelectasis. Otherwise, No acute cardiopulmonary pathology. Discharge Plan Discharge Clinical Impression: Urinary tract infection Patient Disposition: Home, Self-Care Condition: Stable Instructions: Antibiotic Form, Urinary Tract Infection in Women (ED) Additional Instructions: Please return to the ER with any worsening symptoms. Follow-up with primary care provider as soon as possible. Take all medications as prescribed, including regularly scheduled medications. Please complete your full dose of antibiotics and stay hydrated upon discharge. If your symptoms do not improve in 24 to to 48 hours please return to the ER for further workup. Patient Language: Greek Prescriptions: New cefdinir 300 mg capsule 300 mg PO Q12H Qty: 14 0RF phenazopyridine [Pyridium] 100 mg tablet 100 mg PO TID PRN (Reason: pain) Qty: 6 0RF No Action cyclobenzaprine 10 mg tablet 10 mg PO TID PRN (Reason: muscle spasm) Qty: 9 0RF methylprednisolone [Medrol (Romulo)] 4 mg tablets,dose pack See Rx Instructions .ROUTE .COMPLEX Qty: 21 0RF Rx Instructions: orally per package directions cefdinir 300 mg capsule 300 mg PO Q12H 10 Days Qty: 20 0RF ondansetron 4 mg tablet,disintegrating 4 mg PO Q8H PRN (Reason: nausea and vomiting) Qty: 10 0RF Follow-up/Referrals: Jessica,Rachel Gustafson MD [Primary Care Provider] - Time of Disposition: 22:14
[2025-01-05] MEDS: KETOROLAC (*BKC) 60 MG/2 ML VIAL IM (20:38)
[2025-01-05] MEDS: ACETAMINOPHEN 500 MG TABLET 1000 MG PO (20:38)
[2025-01-05 21:07] LABS: Add Urine Microscopic? YES
[2025-01-05 21:11] LABS: Bacteria Urine 4+ /hpf; Mucus Urine Present /lpf; Squamous Epithelial Cell Urine Rare /hpf (Few); WBC Clumps Urine Present /hpf
[2025-01-05 21:12] LABS: Appearance Urine Clear (Clear); Bilirubin Urine 1+ (Negative); Blood Urine 3+ (Negative); Color Urine Yellow (Yellow); Glucose Urine UA Negative (Negative); Ketones Urine Negative (Negative); Leukocyte Esterase Ur 1+ LEU/UL (Negative); Nitrate Urine Negative (Negative); Protein Urine 2+ mg/dL (Negative); RBC Urine None seen /hpf (0-2); Specific Grav Ur 1.025 (1.001-1.035); WBC Urine >100 /hpf (0-3)
[2025-01-05] MEDS: CEFDINIR 300 MG CAPSULE PO (21:33)
[2025-01-05 21:41] LABS: Influenza A QL RT-PCR Negative (Negative); Influenza B QL RT-PCR Negative (Negative); RSV RNA, RT-PCR Negative (Negative); SARS-CoV-2 RNA PCR Negative (Negative)
[2025-01-05 22:20] VITALS: BP 150/88; PULSE 99; RESP 17; TEMP 37.1; O2SAT 99
== END 2025-01-05 22:22 | disposition home or self-care (01) ==
PROVIDERS: Emergency Provider Registered Nurse; PCP Internal Medicine Gastroenterology
DX: N39.0 Urinary tract infection, site not specified (principal); Z20.822 Contact with and (suspected) exposure to COVID-19
CPT/HCPCS: 71046; 81001; 87086; 87637; 96372; 99283; A9270; J1885

== ENCOUNTER 2025-01-17 00:50 | Inpatient (IN) | payer SELFPAY ==
[2025-01-17] VITALS (11 sets, daily range): BP systolic 120–167; BP diastolic 67–90; PULSE 73–113; RESP 18–20; TEMP 36.6–38.6; O2SAT 95–100; BMI 36.8
--- NOTE | ~2025-01-17 | CT_ITS ---
Clinical Indication: Sepsis CT Scan of the Chest, Abdomen, and Pelvis with Contrast: Technique: Contiguous sections were acquired throughout the chest, abdomen, and pelvis after intraven ous administration of 100 cc of Omnipaque 350. Dose reduction technique was used on this scan by uti alessandroing automated exposure control and iterative reconstruction technique. The dose-length product (DL P) was 1510.45 mGy-cm. Comparison: 08/20/2021 Findings: 3.1 cm left thyroid nodule present. There is no evidence of any significant mediastinal, hilar or axi llary lymphadenopathy. The mediastinal soft tissues and axial structures otherwise appear normal. There is no evidence of pleural or pericardial effusion. There is probably chronic scarring in the anteromedial right upper lobe. No other significant pulmona ry abnormality seen. The liver, spleen, pancreas, gallbladder, and adrenal glands are within normal limits. There is a coa rse dystrophic calcification involving the anterior left renal cortex. There is patchy decreased enha ncement of the right kidney, compatible with pyelonephritis. No right hydronephrosis. 1 cm nonobstruc ting right renal stone present, with small right renal cyst. There are atherosclerotic calcifications of the aorta. No lymphadenopathy. No bowel obstruction or bowel wall thickening. There is no evidence to suggest acute appendicitis. Urinary bladder is unremarkable. No pelvic mass seen. No ascites. Small fat-containing left inguinal hernia noted. Impression: Right pyelonephritis. Nonobstructing right renal stone, as above. Probable chronic pulmonary scarring in the right upper lobe. Reviewed, dictated and finalized at [facility]. Impression: Right pyelonephritis. Nonobstructing right renal stone, as above. Probable chronic pulmonary scarring in the right upper lobe.
--- OUTSIDE RECORDS SUMMARY | 2025-01-17 00:52 | XMS_ITS | Data Portability ---
Author Organization [place] - [facility] [employer], Main Office Address [address] [place] [address] Assessment Encounter Date Assessment Date Assessment LastModified by Organization Details LastModified Time 08/17/2024 08/17/2024 Assessment: Nicotine smoke: 10/17 ppd 5632-8493 = 5 pack years Hypertension Mod COPD Eosinophils 03/20/22 700/uL Dysphagia with food penetration Plan: The following were reviewed and explained to the patient: [facility] hospitalization 08/04/22 - 08/07/22 pneumonia Modified barium [...] last blood draw in 03/2022. Referral to [facility] Dr. Pato Stanford for further evaluation and treatment of eosinophilia @ [address] [place] [address], [address], T[place] [phone], FAX [phone], , Adherence to therapy is advocated. Nonadherence [...] 11/06/2024 Assessment: Hypertension Nicotine smoke: 10/17 ppd 7586-2734 = 5 pack years Mild COPD Eosinophilia Dysphagia with food penetration Plan: The following were reviewed and explained to the patient: [facility] hospitalization 08/04/22 - 08/07/22 pneumonia Modified barium [...] last blood draw in 03/2022. Referral to [facility] Dr. Pato tSanford for further evaluation and treatment of eosinophilia @ [address] [place] [address], [address], [place] [phone], FAX [phone], , Adherence to therapy is advocated. Nonadherence [...] for further management. Follow-up: 1 week after polisher dial consult Not available 11/06/2024 15:21:46 Plan of Treatment Reminders Order Date Submit Date Provider Last Modified By Organization Details Last Modified Time Details Appointments None recorded. Lab alpha-1-ant itrypsin (aat) phenotype, serum 2023 [facility] (Lab), [address] [place], [address], 4 15:15:32 eosinophil count, manual, blood (OBS) 2023 024 [facility] (Lab), [address] [place], [address], 4 18:24:19 Referral polisher dial referral - Please call patient to schedule. 2024 025 [email or web address] 82 Pato Stanford, [address], [address], 5 08:58:41 Procedures None recorded. Surgeries None recorded. Imaging None recorded. Medication Orders Symbicort 160 mcg-4.5 mcg/actuati on HFA aerosol inhaler 2024 025 [facility]/Pharmacy #[id number], [address], [place], [address], 5 15:21:15 Spiriva Respimat 2.5 mcg/actuati on solution for inhalation 2024 025 [facility]/Pharmacy #[id number], [address], [place], [address], 5 15:21:14 albuterol sulfate HFA 90 mcg/actuati on aerosol inhaler 2024 025 [facility]/Pharmacy #[id number], [address], [place], [address], 5 15:21:14 Symbicort 160 mcg-4.5 mcg/actuati on HFA aerosol inhaler 2023 024 [facility]/Pharmacy #[id number], [address], [place], [address], 4 15:08:10 Spiriva Respimat 2.5 mcg/actuati on solution for inhalation 2023 [facility]/Pharmacy #[id number], [address], [place], [address], 4 15:08:10 albuterol sulfate HFA 90 mcg/actuati on aerosol inhaler 2023 [facility]/Pharmacy #[id number], [address], [place], [address], 4 15:08:10 Patient TargetsNo targets recorded. Patient Instructions Encounter Date Encounter Id Patient Instructions Last Modified By Organization Details Last Modified Time 08/17/2024 [id number] complete PFT w/ post bronchodilator spirometry* - Please call patient to schedule. NICHOLE [id number] per payor website. 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 Referring Physician: Neymar العلي, Pulmonary Disease, Encounter Date: 11/06/2024 Results Created Date Observation Date Name Description Value Unit Range Abnormal Flag Note LastModifiedBy Organization Detail LastModifiedTime 03/15/2003/24/2022 CBC/C OMPLE TE BLD COUNT W/DIF F white blood cells 27.9 x10'3 /uL 4.2-10 .8 high Not Available [facility] (Lab) [address] [place], [address], 03/24/2022 13:18:02 03/15/2003/24/2022 CBC/C OMPLE TE BLD COUNT W/DIF F red blood cells 4.47 x10'6 /uL 3.80-5 .20 Not Available [facility] (Lab) [address] [place], [address], 03/24/2022 13:18:02 03/15/20 22 03/24/2022 CBC/C OMPLE TE BLD COUNT W/DIF F hemoglobin 12.9 g/dL 12.0-1 5.6 Not Available [facility] (Lab) [address] [place], [address], 03/24/2022 13:18:02 03/15/20 22 03/24/2022 CBC/C OMPLE TE BLD COUNT W/DIF F hematocrit 40.0 % 35.7-4 5.7 Not Available [facility] (Lab) [address] [place], [address], 03/24/2022 13:18:02 03/15/20 22 03/24/2022 CBC/C OMPLE TE BLD COUNT W/DIF F mean red cell volume 89.5 fL 82.0-9 9.0 Not Available [facility] (Lab) [address] [place], [address], 03/24/2022 13:18:02 03/15/20 22 03/24/2022 CBC/C OMPLE TE BLD COUNT W/DIF F mean red cell hemoglobin 28.9 pg 27.0-3 3.0 Not Available [facility] (Lab) [address] [place], [address], 03/24/2022 13:18:02 03/15/20 22 03/24/2022 CBC/C OMPLE TE BLD COUNT W/DIF F mean RBC HGB concentratio n 32.3 g/dL 31.0-3 6.0 Not Available [facility] (Lab) [address] [place], [address], 03/24/2022 13:18:02 03/15/20 22 03/24/2022 CBC/C OMPLE TE BLD COUNT W/DIF F red cell distribution width 13.6 % 11.8-1 5.5 Not Available [facility] (Lab) [address] [place], [address], 03/24/2022 13:18:02 03/15/20 22 03/24/2022 CBC/C OMPLE TE BLD COUNT W/DIF F platelets 421 x10'3 /uL 150-40 0 high Not Available [facility] (Lab) [address] [place], [address], 03/24/2022 13:18:02 03/15/20 22 03/24/2022 CBC/C OMPLE TE BLD COUNT W/DIF F mean platelet volume 9.9 fL 9.0-12 .4 Not Available [facility] (Lab) [address] [place], [address], 03/24/2022 13:18:02 03/15/20 22 03/24/2022 CBC/C OMPLE TE BLD COUNT W/DIF F neutrophils 80 % 39.0-7 2.0 high Not Available [facility] (Lab) [address] [place], [address], 03/24/2022 13:18:02 03/15/20 22 03/24/2022 CBC/C OMPLE TE BLD COUNT W/DIF F bands 3 % 0-3 Not Available [facility] (Lab) [address] [place], [address], 03/24/2022 13:18:02 03/15/20 22 03/24/2022 CBC/C OMPLE TE BLD COUNT W/DIF F lymphocytes 13 % 16.0-4 7.0 low Not Available [facility] (Lab) [address] [place], [address], 03/24/2022 13:18:02 03/15/20 22 03/24/2022 CBC/C OMPLE TE BLD COUNT W/DIF F monocytes 4 % 5.0-12 .0 low Not Available [facility] (Lab) [address] [place], [address], 03/24/2022 13:18:02 03/15/20 22 03/24/2022 CBC/C OMPLE TE BLD COUNT W/DIF F nucleated red blood cells 0.0 % -0 Not Available [facility] (Lab) [address] [place], [address], 03/24/2022 13:18:02 03/15/20 22 03/24/2022 CBC/C OMPLE TE BLD COUNT W/DIF F NRBC# 0.00 x10'3 /uL Not Available [facility] (Lab) [address] [place], [address], 03/24/2022 13:18:02 03/15/20 22 03/24/2022 CBC/C OMPLE TE BLD COUNT W/DIF F normal RBC morphology presen t Not Available [facility] (Lab) [address] [place], [address], 03/24/2022 13:18:02 03/17/20 22 03/14/2022 CT, angio gram, chest , w/ contr ast No observ ation record ed. [id number] Not Available 12/10/2022 01:06:58 03/27/20 22 03/26/2022 [facility] (PROC ) No observ ation record ed. [id number] Not Available 12/10/2022 01:06:58 08/26/20 22 08/05/2022 [place], modif ied angelica gordon study No observ ation record ed. MIGRATION. [id number] Not Available 12/10/2022 01:06:58 08/26/20 22 08/04/2022 CT, angio gram, chest , w/ contr ast No observ ation record ed. MIGRATION. Not Available 12/10/2022 01:06:58 08/26/20 22 05/27/2022 [place], modif ied angelica romero ow study No observ ation record ed. MIGRATION. [facility] (Radiology) [address] [place], [address], 12/10/2022 01:06:58 08/27/20 22 05/26/2022 CT, angio gram, chest , w/ contr ast No observ ation record ed. [id number] Not Available 12/10/2022 01:06:58 09/02/20 22 08/31/2022 PFT, compl ete No observ ation record ed. [id number] Not Available 12/10/2022 01:06:58 08/25/20 24 03/09/2023 [...] 25 11/06/2024 compl ete PFT w/ [facility] rene metry * No observ ation record ed. [facility] (One Call Scheduling) [address] [place], [address], 11/08/2024 10:01:46 Result Notes None recorded. 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 Procedures Surgical History None recorded. Imaging Results Imaging Date Name Status LastModified by Organization Details LastModified Time 05/26/2022 CT, angiogram, chest, w/ contrast completed [id number] Information not available 12/10/2022 01:06:58 08/31/2022 PFT, complete completed [email or web address].[id number] Information not available 12/10/2022 01:06:58 08/05/2022 FL, modified barium swallow study completed [email or web address].[id number] Information not available 12/10/2022 01:06:58 08/04/2022 CT, angiogram, chest, w/ contrast completed [email or web address].[id number] Information not available 12/10/2022 01:06:58 05/27/2022 FL, modified barium swallow study completed [id number] [facility] (Radiology) [address] [place] [address], [address], 12/10/2022 01:06:58 03/14/2022 CT, angiogram, chest, w/ contrast completed [id number] Information not available 12/10/2022 01:06:58 03/26/2022 bronchoscopy procedure (PROC) completed [id number].[id number] Information not available 12/10/2022 01:06:58 03/09/2023 CT, [...] PFT w/ post bronchodilator spirometry* completed BARCODE [facility] (One Call Scheduling) [address] [place], [address], 11/08/2024 10:01:46 Procedure Notes None recorded. Medical Equipment None Reported. Allergies Allergen ID Allergen Name Allergen Category Reaction Reaction Severity Criticality Documentation Date Start Date Code Code System Note Provider Name and Address Organization Details Recorded Time 21507 acetamino phen / hydrocodo ne medicatio n nausea Not available Not available 12/10/2022 39017 2 RxNorm Not Available [facility] 3 01:06:47 51156 codeine medicatio n nausea Not available Not available 12/10/2022 2670 RxNorm Not Available [facility] 3 01:06:47 Medications Name Sig Start [...] % 103 /min 18 /min 97.2 [degF] 27799.2 1 g 140 mm[Hg] 88 mm[Hg] Not Available [facility] 3 01:05:35 Date Recorded Body mass index (BMI) Body height Oxygen saturation Oxygen saturation in Arterial blood by Pulse oximetry Heart rate Body temperature Body weight Systolic blood pressure Diastolic blood pressure Provider Name and Address Organization Details Last Updated DateTime 2 31.4 kg/m2 162.56 cm 95 % 95 % 93 /min 98.2 [degF] 04434.4 g 168 mm[Hg] 118 mm[Hg] Not Available [facility] 3 01:05:35 Date Recorded Body mass index (BMI) Heart rate Body height Oxygen saturation Oxygen saturation in Arterial blood by Pulse oximetry Heart rate Respiratory rate Body temperature Body weight Systolic blood pressure Diastolic blood pressure Provider Name and Address Organization Details Last Updated DateTime 3 32.4 kg/m2 100 /min 162.56 cm 97 % 97 % 100 /min 15 /min 98.7 [degF] 01860.2 4 g 142 mm[Hg] 92 mm[Hg] Not Available [facility] 3 01:05:35 Date Recorded Body weight Body mass index (BMI) Body height Body temperature Heart rate Oxygen saturation Oxygen saturation in Arterial blood by Pulse oximetry Systolic blood pressure Diastolic blood pressure Provider Name and Address Organization Details Last Updated DateTime 4 30000.5 8 g 37.6 kg/m2 160.02 cm 98.2 [degF] 92 /min 97 % 97 % 148 mm[Hg] 92 mm[Hg] Radha Juan MA [place] [email or web address] 4 15:31:24 Date Recorded Heart rate Respiratory rate Provider N jose l and Address Organization Details Last Updated DateTime 08/17/2024 92 /min 15 /min Neymar العلي MD [address], [address], [place] [employer] [facility] [employer] 08/17/2024 15:41:16 Date Recorded Body height Body mass index (BMI) Body weight Body temperature Heart rate Oxygen saturation Oxygen saturation in Arterial blood by Pulse oximetry Systolic blood pressure Diastolic blood pressure Provider Name and Address Organization Details Last Updated DateTime 5 160.02 cm 37.6 kg/m2 47859.5 8 g 97.7 [degF] 71 /min 97 % 97 % 136 mm[Hg] 90 mm[Hg] Radha Juan MA [place] [employer] [facility] [employer] 5 15:09:14 Date Recorded Heart rate Respiratory rate Provider N jose l and Address Organization Details Last Updated DateTime 11/06/2024 71 /min 14 /min Neymar العلي MD [address] [facility], [place], [address], [place] [facility] [employer] 11/06/2024 15:15:54 Social History Question Answer Notes LastModified by Organizat ion Details LastModified Time Tobacco Smoking Status Former Smoker Not Available [facility] 12/10/2022 01:04:48 What Is Your Level Of Alcohol Consumption? None [id number] 1950 Information not available 12/10/2022 What Is Your Level Of Caffeine Consumption? Moderate [id number].[id number] 3126 Information not available 12/10/2022 In The 14 [...] Type Of Diet Are You Following? REGULAR MIGRATION.224633 1432 Information not available 12/10/2022 Do You Have An Electrostatic Air Filter? No MIGRATION.342362 0955 Information not available 12/10/2022 Do You Have A Humidifier? No MIGRATION.139300 1501 Information not available 12/10/2022 Where Do You Live? [facility] MIGRATION.594233 0794 Information not available 12/10/2022 Do You Have Moisture Problems In Your Home? Yes MIGRATION.728609 8811 Information not available 12/10/2022 What Was The Date Of Your Most Recent Tobacco Screening? 11/06/2024 Information not available 11/06/2024 Do You Have Any Pets? Yes MIGRATION.332942 6750 Information not available 12/10/2022 Do You Use Your Seat Belt Or Car Seat Routinely? Yes Information not available 08/17/2024 Do You Have Smoke And Carbon Monoxide Detectors In Your Home? Yes MIGRATION.355572 5929 Information not available 12/10/2022 Are You Passively Exposed To Smoke? Yes MIGRATION.168651 7425 Information not available 12/10/2022 Do You Feel Stressed (tense, Restless, Nervous, Or Anxious, Or Unable To Sleep At Night)? [id number] Information not available 08/17/2024 Do You Use Any Illicit Or Recreational Drugs? No MIGRATION.337379 9704 Information not available 12/10/2022 Do You Use Sunscreen Routinely? Yes MIGRATION.297902 2110 Information not available 12/10/2022 Have You Recently Traveled Abroad? No MIGRATION.811619 8966 Information not available 12/10/2022 Do You Have Any Dietary Restrictions? No MIGRATION.699789 5705 Information not available 12/10/2022 Sex: Unknown Functional Status Question Answer Note LastModified by Organizat ion Details LastModified Time What is your exercise level? Occasional Information not available 08/17/2024 Mental Status None recorded. Family History Relationship Description Onset Age of this Age Resolved Age Notes LastModified by Organization Details LastModified Time Mother Malignant neoplasm of skin [id number] Not available 12/10/2022 01:05:03 Maternal Grandfather Cerebrovascu lar accident MIGRATION.[id number] Not available 12/10/2022 01:05:03 Paternal Grandfather Cerebrovascu lar accident [id number] Not available 12/10/2022 01:05:03 Maternal Grandmother Diabetes mellitus [id number].[id number] Not available 12/10/2022 01:05:03 Maternal Aunt Malignant tumor of lung Not available 2024 15:19:30 Medical History No medical history recorded. Gynecological HistoryNo gynecological history recorded. Obstetrics History GPAL:G 0 P 0 0 0 0 Immunizations Vaccine Type Date Status Note Provider Nam e and Address Organization Details Recorded Time COVID-19, mRNA, LNP-S, PF, 10 mcg/0.2 mL dose, dyan-sucrose 09/12/2021 completed Not Available [facility] 023 01:06:45 COVID-19, mRNA, LNP-S, PF, 10 mcg/0.2 mL dose, dyan-sucrose 11/15/2020 completed Not Available [facility] 023 01:06:45 COVID-19, mRNA, LNP-S, PF, 10 mcg/0.2 mL dose, dyan-sucrose 10/25/2020 completed Not Available [facility] 023 01:06:45 Past Encounters Encounter ID Performer Location Encounter Start Date Encounter Closed Date Diagnosis/Indication Diagnosis SNOMED-CT Code Diagnosis ICD10 Code Diagnosis Note [id number] [facility] [address] [address] 03/18/2022 00:00:00 03/18/2022 15:12:13 [id number] [facility] [address] [address] 08/31/2022 00:00:00 09/25/2022 13:49:06 [id number] [facility] [address] [address] 10/13/2022 00:00:00 10/13/2022 12:17:58 [id number] Neymar العلي MD [facility] [address] [address] 08/17/2024 14:22:40 10/09/2024 09:27:21 Moderate chronic obstructive pulmonary disease 229637397 J44.9 [id number] Neymar العلي MD [facility] [address] [address] 11/06/2024 14:51:20 11/06/2024 16:08:21 Mild chronic obstructive pulmonary disease 539692581 J44.9 Eosinophil count above reference range 019008958 D72.10 Health Concerns Section Related Observation LastModified [...] 2020 (MEDICAID REPLACEMENT - HMO) Mary Redman [id number] Mary Gustafson [employer] 11/06/2024 1 [employer] [place] - DOS ON OR AFTER 2020 (MEDICAID REPLACEMENT - HMO) Mary Leachn [id number] Mary A Rolen Notes Date Note Type [...] taking a showerAlleviating factors: restModified [employer] (mMRC) Dyspnea Scale - Grade 2Grade 0 [...] with burgerEdema: yesEnvironmental exposures:Nicotine smoke: 10/17 ppd 7428-9747 = 5 pack yearsPaint: noDye: noDust mites: [...] chance of dozing. Neymar العلي MD [address] [facility], [facility] [address], [place], [address], [place] [facility] [employer] 08/17/2024 15:53:43 11/06/2024 text/html Primary care/Ref erring provider: Rachel Prabhakar MDPatitahir is here to go over her COPD management.Initial development of shortness of breath: uration of shortness of breath: 3 yearsCondition of shortness of breath: improvedTiming of shortness of breath: noneFrequency: once a dayLimits activities: yesAggravating factors: walking, taking a showerAlleviating factors: restModified [employer] (mMRC) Dyspnea Scale - Grade 2Grade 0 [...] with burgerEdema: yesEnvironmental exposures:Nicotine smoke: 10/17 ppd 0073-5224 = 5 pack yearsPaint: noDye: noDust mites: [...] chance of dozing. Neymar العلي MD [address] [facility], [facility] [address], [place], [address], [facility] [employer] 11/06/2024 15:28:11 OBGyn Episode No OBEpisode recorded.
--- OUTSIDE RECORDS SUMMARY | 2025-01-17 00:53 | XMS_ITS | Data Portability ---
[facility] Organization [facility] [address] [place] [address] Care Team Providers Care Satellite Television Installer Name Role Phone RAHCEL PRABHAKAR Primary Care Provider Assessment No assessment recorded. Plan of Treatment Reminders Order Date Submit Date Provider Last Modified By Organization Details Last Modified Time Details Appointments None recorded . Lab vitamin D, 25-hydro xy, total, serum 2023 [facility], [address], [place], [address], 5 16:32:41 CMP, serum or plasma 2023 024 [facility], [address], [place], [address], 5 16:32:41 lipid panel, serum 2023 [facility], [address], [place], [address], 5 16:32:41 CBC 2023 024 [employer] [facility], [address], [place], [address], 5 16:32:41 TSH, ultra-se nsitive, serum 2023 024 [employer] [facility], [address], [place], [address], 5 16:32:41 urinalys is, complete 2015 016 DBA_PATCH_20 [id number] [facility], [address], [address], [place], [address], 6 04:30:57 CBC 2015 016 DBA_PATCH_20 [id number] [facility], [address], [address], [place], [address], 6 04:30:57 lipid panel, serum 2015 016 DBA_PATCH_20 [id number] [facility], [address], [address], [place], [address], 6 04:30:57 CMP, serum or plasma 2015 016 DBA_PATCH_20 [id number] [facility], [address], [address], [place], [address], 6 04:30:57 HbA1c (hemoglo bin A1c), blood 2015 016 DBA_PATCH_20 [id number] [facility], [address], [address], [place], [address], 6 04:30:57 Referral pulmonol ogist referral 2023 024 JOHN العلي MD, [address] [place], [address], 4 16:04:[address] referral - Please call patient to schedule 2015 016 [email or web address] Marvin Hernandes MD, [address] [place], [address], 7 08:07:09 Procedures None recorded . Surgeries None recorded . Imaging None recorded . Medication Orders amlodipi ne 10 mg tablet [address] [facility] #[id number], [address], [place], [address], 4 13:19:10 amlodipi ne 5 mg tablet [address] [facility] #[id number], [address], [place], [address], 2 03:32:22 ranitidi ne 150 mg tablet 2015 016 [facility]/Pharmacy #[id number], [address], [place], [address], 10:58:04 Patient TargetsNo targets recorded. Patient Instructions Encounter Date Encounter Id Patient Instructions Last Modified By Organization Details Last Modified Time 08/20/2016 [id number] Make an appointment to see an programming coordinator Make an appointment to see a dentist Make an appointment for 1 week for cerumen removal Make an appointment for 2 weeks for WWE [email or web address] Not available 08/20/2016 10:47:14 03/26/2022 [id number] deciding about using medicines to quit smoking [email or web address] Not available 03/26/2022 14:29:20 07/13/2024 [id number] deciding about using medicines to quit smoking [email or web address] Not available 07/13/2024 13:19:07 Quitting Tobacco : Care Instructions Not available 07/13/2024 13:19:07 learning about high blood pressure [email or web address] Not available 07/13/2024 13:19:07 Reason for Referral Please call patient to hillary nolen Referring Physician: Tana Baeza, Family Medicine, Encounter Date: 08/20/2016 Senior Front End Engineer Referral for T obacco dependence syndrome Hx [...] ast No observ ation record ed. [email or web address] [facility] [address] [place], [address], 05/29/2022 10:10:27 05/27/20 22 05/26/2022 XR, chest No observ ation record ed. [email or web address] [facility] [address] [place], [address], 05/29/2022 10:10:39 05/27/20 22 05/27/2022 FL, modif ied angelica romero ow study No observ ation record ed. [email or web address] [facility] [address] [place], [address], 05/29/2022 10:11:05 08/05/20 22 08/04/2022 imagi ng/di agnos tic resul t No observ ation record ed. [facility] Orders [address] [place], [address], 08/05/2022 09:16:57 08/05/20 22 08/04/2022 XR, chest No observ ation record ed. [facility] Orders [address] [place], [address], 08/05/2022 09:59:20 08/05/20 22 08/05/2022 XR, chest No observ ation record ed. [facility] [address] [place], [address], 08/06/2022 08:59:49 08/06/20 22 08/05/2022 angelica romero ow study No observ ation record ed. [facility] [address] [place], [address], 08/06/2022 11:37:17 01/02/20 23 01/01/2023 XR, chest No observ ation record ed. [facility] [address] [place], [address], 01/11/2023 09:25:47 01/02/20 23 01/01/2023 CT, chest , w/ contr ast No observ ation record ed. [facility] [address] [place], [address], 01/11/2023 08:46:48 03/10/20 23 03/09/2023 CT, chest , w/o contr ast No observ ation record ed. [facility] [address] [place], [address], 03/10/2023 09:01:40 03/10/20 23 03/09/2023 XR, chest , 2 view No observ ation record ed. [address] [place], [address], 03/10/2023 11:58:29 09/18/20 23 09/18/2023 XR, chest , 2 view No observ ation record ed. [facility] [address] [place], [address], 09/20/2023 14:17:27 01/06/20 25 01/05/2025 XR, chest No observ ation record ed. [address], [place], [address], 01/11/2025 23:24:15 Result Notes None recorded. Problems Name Problem SNOMED Code Status Onset Date Resolution Date Notes Provider Name and Address Organization Details Recorded Time Essential hypertension 38082747 Active 2021 Not Available [facility] 3 22:20:08 Fracture of foot 48598378 Active 2023 Rachel Prabhakar MD Attn: Accounting ,[address] [place], [address] , [facility] 4 17:48:33 Diverticular disease 730497683 Active 2015 Not Available [facility] 3 22:20:08 Body mass index 25-29 - overweight 532433308 Active 2015 Not Available [facility] 3 22:20:08 Tobacco dependence syndrome 95041717 Active 2015 Not Available [facility] 3 22:20:08 Gastroesophag eal reflux disease without esophagitis 243848766 Active 2015 Not Available [facility] 3 22:20:08 Problem Notes None recorded. Procedures Surgical History Date Name Laterality Status Provider Name and Address Organization Details Recorded Time Tonsillectomy completed Chey Ricci [place] [facility] 08/20/2016 10:16:53 Caesarean Section completed Chey adam MA [place] [facility] 08/20/2016 10:16:59 Imaging Results Imaging Date Name Status LastModified by [facility] Details LastModified Time 05/26/2022 CT, angiogram, chest, w/ contrast completed [email or web address] [facility] [address] [place], [address], 05/29/2022 10:10:27 05/26/2022 XR, chest completed [email or web address] [facility] [address] [place], [address], 05/29/2022 10:10:39 05/27/2022 FL, modified barium swallow study completed [email or web address] [facility] [address] [place], [address], 05/29/2022 10:11:05 08/04/2022 imaging/diagn ostic result completed [email or web address] [facility] [address] [place], [address], 08/05/2022 09:16:57 08/04/2022 XR, chest completed [email or web address] [facility] [address] [place], [address], 08/05/2022 09:59:20 08/05/2022 XR, chest completed [email or web address] [facility] [address] [place], [address], 08/06/2022 08:59:49 08/05/2022 barium swallow study completed [email or web address] [facility] [address] [place], [address], 08/06/2022 11:37:17 01/01/2023 XR, chest completed [email or web address] [facility] [address] [place], [address], 01/11/2023 09:25:47 01/01/2023 CT, chest, w/ contrast completed [facility] [address] [place], [address], 01/11/2023 08:46:48 03/09/2023 CT, chest, w/o contrast completed [facility] [address] [place], [address], 03/10/2023 09:01:40 03/09/2023 XR, chest, 2 view completed [address] [place], [address], 03/10/2023 11:58:29 09/18/2023 XR, chest, 2 view completed [facility] [address] [place], [address], 09/20/2023 14:17:27 01/05/2025 XR, chest completed [place] [id number] [facility] [address], [address], 01/11/2025 23:24:15 Procedure Notes None recorded. Medical Equipment None Reported. Allergies Allergen ID Allergen Name Allergen Category Reaction Reaction Severity Criticality Documentation Date Start Date Code Code System Note Provider Name and Address Organization Details Recorded Time 191860 codeine medicatio n nausea Not available Not available 07/13/2024 2670 RxNorm Not Available Not Available Not Available [...] Updated DateTime 2 165.1 cm 33.4 kg/m2 29420.0 7 g 84 /min 98.1 [degF] 98 % 98 % 148 mm[Hg] 110 mm[Hg] Chey Ricci MA [place] - [facility] 2 11:02:03 Date Recorded Systolic blood pressure Diastolic blood pressure Provider Name and Address Organization Details Last Updated DateTime 03/26/2022 150 mm[Hg] 100 mm[Hg] Rachel Prabhakar MD Attn: Accounting,[address] [facility], [place], [address], [facility] 03/26/2022 11:34:08 Date Recorded Body height Body mass index (BMI) Body weight Oxygen saturation Oxygen saturation in Arterial blood by Pulse oximetry Heart rate Systolic blood pressure Diastolic blood pressure Provider Name and Address Organization Details Last Updated DateTime 4 162.56 cm 35.9 kg/m2 03221.8 1 g 99 % 99 % 97 /min 173 mm[Hg] 116 mm[Hg] Franci Rojas MA [facility] 4 12:48:25 Date Recorded Body height Body weight Body mass index (BMI) Body temperature Oxygen saturation Oxygen saturation in Arterial blood by Pulse oximetry Heart rate Systolic blood pressure Diastolic blood pressure Provider Name and Address Organization Details Last Updated DateTime 6 165.1 cm 38319.8 4 g 29.7 kg/m2 97.9 [degF] 99 % 99 % 75 /min 136 mm[Hg] 86 mm[Hg] Chey Ricci MA [facility] 6 10:15:46 Social History Question Answer Notes LastModified by Organizat ion Details LastModified Time Tobacco Smoking Status Current Some Day Smoker Chey Ricci MA [facility], [facility] 03/26/2022 11:02:17 What Is Your Level Of [...] Response Coronary Artery Disease N Other Y High Blood Pressure Y Atrial Fibrillation N Kidney or Bladder Problems Y Thyroid Problems N GI Problems N Depression Y COPD Y Blood Clots N Have you had a mammogram in the last yea r? N Skin Problems N Anemia N Heart Attack ([place]) N Anxiety Disorder Y Diabetes N Muscle, Joint, or Bone Problems N Seizures/Epilepsy N Have you had a colonoscopy in the last 1 0 years? N Acid Reflux (GERD) Y Cancer N Stroke N Asthma N Allergies N Have you had a PSA blood test in the las t year? N High Cholesterol N Hepatitis N Liver Disease N Headaches N Heart Failure N Osteoporosis N Gynecological History Statement/Question Response Flow Heavy [...] mcg/0.3 mL dose 1 completed Not Available [facility] 05/19/2023 01:02:27 COVID-19, mRNA, LNP-S, PF, 30 mcg/0.3 mL dose 1 completed Not Available [facility] 05/19/2023 01:02:27 COVID-19, mRNA, LNP-S, PF, 30 mcg/0.3 mL dose 1 completed Not Available [facility] 05/19/2023 01:02:27 Influenza, split virus, quadrivalent, preservative 6 completed Not Available [facility] 10/28/2019 02:48:36 Past Encounters Encounter ID Performer Location Encounter Start Date Encounter Closed Date Diagnosis/Indication Diagnosis SNOMED-CT Code Diagnosis ICD10 Code Diagnosis Note [id number] VALERIE Trinidad (Adult Med) [address] [place] [phone] 08/20/2016 09:55:41 08/20/2016 15:38:54 Active or passive immunization 731959380 Z23 Diverticular disease 397 109279 K57.90 Advised to take her laxativeWi ll refer to GI for management Body mass index 25-29 - overweight 269356202 Z68.29 Advised 30 minutes of exercise 5 days/week Advised to not drink her calories Advised 3 balanced meals/day with plenty of fruits and vegetables Stop drinking juice and soda - drink more water Tobacco de pendence syndrome 49197623 F17.290 Advised to quit Gastroesop hageal reflux disease without esophagitis 724717690 K21.9 Do not eat within 2 hours of bedtimeSta y away from greasy and deep fried foodsStay away from acidic foods Stop smokingWil l initiate ranitidine 150mg BID Impacted cerumen 4842497 6 H61.23 Advised to purchase sweet oil OTC - one drop each ear BIDRTC 1 week to have cerumen removed Adult [facility] th examination 222295586 Z00.01 51YO Caucasain female here to establish care. She has moved here from [place]. [id number] MD Quan Meehan (Adult Med) [address] [place] [phone] 03/26/2022 10:41:57 03/31/2022 12:12:01 Essential hypertension 50982262 I10 Tobacco de pendence syndrome 11095236 F17.750 [id number] Rachel Prabhakar MD [facility] (Adult [facility]) [address] [place] [address] [phone] 07/13/2024 12:16:16 07/14/2024 14:16:54 Essential hypertension 03591367 I10 Increase amlodipine Diverticular disease 397 949380 K57.90 Fracture of foot 9845052 5 S92.901D S92.901A Tobacco de pendence syndrome 44806091 F17.200 Health Concerns Section Related Observation LastModified by Organization Detai ls LastModified Time None Recorded Concern Status LastModified by Organization Details LastModified Time None Recorded Advance Directives Directive None Recorded Payers Encounter Date Sequence Insurance Name Policy Number Policy Kamara Covered Member ID Kamara Member ID Guarantor Name 08/20/2016 2 [place] Mary Rolen [id number] Mary Rolen 03/26/2022 2 [place] Mary Rolen [id number] Mary Rolen 03/26/2022 1 [place] 2020 (MEDICAID REPLACEMENT - HMO) Mary Rolen [id number] Mary Rolen 07/13/2024 1 [place] - [place]) Mary Rolen [id number] Mary Rolen Notes Date Note Type Note Provider Name and Address Organization Details Recorded Time 08/20/2016 text/html Here to francisco guerra. He has no complaints today Tana Baeza PA-C Attn: Accounting,[address] [facility], [place], [address], [facility] 08/20/2016 10:48:24 07/13/2024 text/html Here for BP f/u. She was restarted on amlodipine two months ago. No complaints Rachel Prabhakar MD Attn: Accounting,[address] [facility], [place], [address], [facility] 07/13/2024 13:19:34 OBGyn Episode No OBEpisode recorded.
--- OUTSIDE RECORDS SUMMARY | 2025-01-17 00:53 | XMS_ITS | CONTINUITY OF CARE DOCUMENT ---
Author Name krista velasco Address Unknown Organization [facility] Address [address] [facility] [address] [place] [address] Phone [phone] Care Team Providers Care Telephone Plant Power Operator Name Role Phone Erasto ARROYO, Renetta Unavailable PINA CROOK MD Unavailable [phone] PINA CROOK MD Unavailable INSURANCE PROVIDERS Payer name Policy type / Coverage type [place] red democrat ID AETNA [facility] Medicaid [id number]
--- OUTSIDE RECORDS SUMMARY | 2025-01-17 00:53 | XMS_ITS | Referral Summary ---
Author Organization [facility] Address [address] [place] [address] Care Team Providers Care Superintendent Renting Managing Name Role Phone Rachel Prabhakar MD Primary [...] (07/01/2022): Added automatically from request for surgery [id number] Essential hypertension 03/26/2022 Forehead laceration 11/28/2021 Diverticular [...] How often do you attend chur or zoroastrian services? Never 06/30/2022 Do you belong to any clubs o r organizations such as pentecostal groups, unions, fraternal or athletic groups, or [...] place to sleep or slept in a [place] health [place] facility (including now)? No 06/30/2022 Personal Safety Answer [...] of Treatment Not on file Insurance AETNA [facility] AETNA [facility] AETNA BETTER [facility] Advance Directives For more information, please contact: [phone] * Full Code (Latest Code Status on File) Date Activated Date Inactivated Comments 06/29/2022 8:01 AM 07/04/2022 12:44 PM Care Teams Superintendent Renting Managing Relationship Specialty Start Date End Date Rachel Prabhakar MD [address] [address] PCP - General Gastroenterology 06/06/24
--- OUTSIDE RECORDS SUMMARY | 2025-01-17 00:53 | XMS_ITS | Clinical Summary ---
Author Organization [facility] Address [address] [facility] [place] [address] Care Team Providers Care News Wire Photo Operator Name Role Phone Unavailable Primary Care Provider Unavailabl e Source Comments [facility],non-owned Affiliates and Associated Physician Practices is amultiple site organization consisting of ambulatory clinics and hospital sitesin [place], [place], [place] and [place]. This disclosure is being madepursuant to the Care Everywhere program and may not contain all information available regarding this patient. Last updated 18.[facility] Allergies Active Allergy Reactions Criticality Noted Date [...] Comments Blood Pressure 171/120 12/19/2021 2:15 PM COLLABORATIVE TEACHER Pulse 118 12/19/2021 2:15 PM COLLABORATIVE TEACHER Temperature 36.4 C (97.5 F) 12/19/2021 2:15 PM COLLABORATIVE TEACHER Respiratory Rate 17 11/19/2021 1:30 AM COLLABORATIVE TEACHER Oxygen Saturation 98% 12/19/2021 2:15 PM COLLABORATIVE TEACHER Inhaled Oxygen Concentration - - Weight 96.6 kg (213 lb) 12/19/2021 2:15 PM COLLABORATIVE TEACHER Height 162.6 cm (5' 4 ) 12/19/2021 2:15 PM COLLABORATIVE TEACHER Body Mass Index 36.56 12/19/2021 2:15 PM COLLABORATIVE TEACHER Plan of Treatment Health Maintenance Due Date [...] (2 - 2023-2 5 season) 2024 10/25/2020 DEPRESSION SCREENING 10/11/2024 SCREENING FOR DIABETES 11/18/2024 11/18/2021 INFLUENZA VACCINE (Season Ended) 2025 HIB VACCINE Aged Out No longer eligi [...] COMPREHENSIVE METABOLIC PANEL STAT 11/18/2021 10:24 PM COLLABORATIVE TEACHER from Last 3 Months or Most Recently Relevant to Health Maintenance Results * (ABNORMAL) COMPREHENSIVE METABOLIC PANEL (11/18/2021 10:24 PM COLLABORATIVE TEACHER) BUN 15 7 - 26 mg/dL 11/18/2021 10:56 PM [facility] Creatinine 0.96 0.56 - 0.96 mg/dL 11/18/2021 10:56 PM [facility] Sodium 142 136 - 145 mmol/L 11/18/2021 10:56 PM [facility] Potassium 3.3(L) 3.5 - 4.5 mmol/L 11/18/2021 10:56 PM [facility] Chloride 108(H) 98 - 107 mmol/L 11/18/2021 10:56 PM [facility] CO2 23 22 - 29 mmol/L 11/18/2021 10:56 PM [facility] Glucose 101 70 - 115 mg/dL 11/18/2021 10:56 PM [facility] Calcium 8.4 8.4 - 10.2 mg/dL 11/18/2021 10:56 PM [facility] Protein Total 6.8 6.0 - 8.3 g/dL 11/18/2021 10:56 PM [facility] Albumin 3.3(L) 3.4 - 5.0 g/dL 11/18/2021 10:56 PM [facility] Bilirubin Total 0.5 0.2 - 1.2 mg/dL 11/18/2021 10:56 PM [facility] Alkaline Phosphatase 91 40 - 150 U/L 11/18/2021 10:56 PM [facility] ALT 17 5 - 55 U/L 11/18/2021 10:56 PM [facility] AST 14 5 - 34 U/L 11/18/2021 10:56 PM [facility] Anion Gap 14 8 - 18 11/18/2021 10:56 PM [facility] BUN/Creatinine Ratio 16 7 - 23 11/18/2021 10:56 PM [facility] Osmolality Calculated 295 270 - 300 mOsm/kg 11/18/2021 10:56 PM [facility] Albumin/Globulin Ratio 0.9(L) 1.1 - 2.3 11/18/2021 10:56 PM [facility] eGFR by CKD-EPI 70(L) >=90 mL/min/1.7 3 m2 11/18/2021 10:56 PM [facility] Blood BLOOD SPECIMEN / Unknown Venipuncture / Unknown 11/18/2021 10:24 PM COLLABORATIVE TEACHER 11/18/2021 10:29 PM [facility] Samantha Saavedra MD LAB - CHEMISTRY CATALINA MACIAS [facility] Organization Address City/State/ZIP Co de Phone Number [facility] [address] [place] [address], [facility] [phone] from Last 3 Months or Most Recently Relevant to Health Maintenance
--- OUTSIDE RECORDS SUMMARY | 2025-01-17 00:53 | XMS_ITS | Clinical Summary ---
Author Organization [facility] Address [address] [place] [address] Care Team Providers Care Bilingual Teacher Aide Name Role Phone Rachel Prabhakar MD Primary [...] (07/01/2022): Added automatically from request for surgery [id number] Essential hypertension 03/26/2022 Forehead laceration 11/28/2021 Diverticular [...] often do you attend chur ch or orthodox services? Never 06/30/2022 Do you belong to any clubs o r organizations such as worship groups, unions, fraternal or athletic groups, or [...] 10/25/2020 Influenza Vaccine (#1) 2024 08/20/2016 [facility] AETNA [facility] Advance Directives For more information, please contact: [phone] * Full Code (Latest Code Status on File) Date Activated Date Inactivated Comments 06/29/2022 8:01 AM 07/04/2022 12:44 PM Care Teams Bilingual Teacher Aide Relationship Specialty Start Date End Date Rachel Prabhakar MD [address] [place] [address] PCP - General Gastroenterology 06/06/24
[2025-01-17 01:48] LABS: Hematocrit 42.4 % (37.0-47.0); Hemoglobin 13.8 g/dL (12.0-15.0); Mean Corpuscular HGB Conc 32.5 g/dl (32-36); Mean Corpuscular Hemoglobin 29.2 pg (26-34); Mean Corpuscular Volume 89.8 fl (80-100); Mean Platelet Volume 9.5 fl (7.4-10.4); Platelet Count Result 312 k/mm3 (150-375); Red Blood Count 4.72 M/mm3 (4.2-5.4); Red Cell Distribution Width 14.5 % (11.5-14.5); White Blood Count 20.9 K/mm3 (4.5-10.0)
[2025-01-17 01:56] LABS: Anion Gap 9 mmol/L (4-12); Blood Urea Nitrogen 13 mg/dL (7-17); Calcium 8.3 mg/dL (8.4-10.2); Carbon Dioxide 23 mmol/L (22-30); Chloride 101 mmol/L (98-107); Estimated Glomerular Filt Rate 45; Glucose 111 mg/dL (65-110); Potassium 3.5 mmol/L (3.4-5.0); Sodium 133 mmol/L (137-145)
--- OUTSIDE RECORDS SUMMARY | 2025-01-17 01:58 | XMS_ITS | Clinical Summary ---
Author Organization [facility] Address [address] [place] [address] Care Team Providers Care Farm Mechanic Apprentice Name Role Phone Unavailable Primary Care Provider Unavailabl e Source Comments [facility],non-owned Affiliates and Associated Physician Practices is amultiple site organization consisting of ambulatory clinics and hospital sitesin [place], [place], [place] and [place]. This disclosure is being madepursuant to the Care Everywhere program and may not contain all information available regarding this patient. Last updated 18.[facility] Allergies Active Allergy Reactions Criticality Noted Date [...] Comments Blood Pressure 171/120 12/19/2021 2:15 PM [employer] Pulse 118 12/19/2021 2:15 PM [employer] Temperature 36.4 C (97.5 F) 12/19/2021 2:15 PM [employer] Respiratory Rate 17 11/19/2021 1:30 AM [employer] Oxygen Saturation 98% 12/19/2021 2:15 PM [employer] Inhaled Oxygen Concentration - - Weight 96.6 kg (213 lb) 12/19/2021 2:15 PM [employer] Height 162.6 cm (5' 4 ) 12/19/2021 2:15 PM [employer] Body Mass Index 36.56 12/19/2021 2:15 PM [employer] Plan of Treatment Health Maintenance Due Date [...] COMPREHENSIVE METABOLIC PANEL STAT 11/18/2021 10:24 PM [employer]OCIATE from Last 3 Months or Most Recently Relevant to Health Maintenance Results * (ABNORMAL) COMPREHENSIVE METABOLIC PANEL (11/18/2021 10:24 PM [employer]) BUN 15 7 - 26 mg/dL 11/18/2021 10:56 PM [facility] Creatinine 0.96 0.56 - 0.96 mg/dL 11/18/2021 10:56 PM [facility] Sodium 142 136 - 145 mmol/L 11/18/2021 10:56 PM [facility] Potassium 3.3(L) 3.5 - 4.5 mmol/L 11/18/2021 10:56 PM [facility] Chloride 108(H) 98 - 107 mmol/L 11/18/2021 10:56 PM [facility] CO2 23 22 - 29 mmol/L 11/18/2021 10:56 PM [facility] Glucose 101 70 - 115 mg/dL 11/18/2021 10:56 PM [facility] Calcium 8.4 8.4 - 10.2 mg/dL 11/18/2021 10:56 PM [facility] Protein Total 6.8 6.0 - 8.3 g/dL 11/18/2021 10:56 PM [facility] Albumin 3.3(L) 3.4 - 5.0 g/dL 11/18/2021 10:56 PM [facility] Bilirubin Total 0.5 0.2 - 1.2 mg/dL 11/18/2021 10:56 PM [facility] Alkaline Phosphatase 91 40 - 150 U/L 11/18/2021 10:56 PM [facility] ALT 17 5 - 55 U/L 11/18/2021 10:56 PM [facility] AST 14 5 - 34 U/L 11/18/2021 10:56 PM [facility] Anion Gap 14 8 - 18 11/18/2021 10:56 PM [facility] BUN/Creatinine Ratio 16 7 - 23 11/18/2021 10:56 PM [facility] Osmolality Calculated 295 270 - 300 mOsm/kg 11/18/2021 10:56 PM [facility] Albumin/Globulin Ratio 0.9(L) 1.1 - 2.3 11/18/2021 10:56 PM [facility] eGFR by CKD-EPI 70(L) >=90 mL/min/1.7 3 m2 11/18/2021 10:56 PM [facility] Blood BLOOD SPECIMEN / Unknown Venipuncture / Unknown 11/18/2021 10:24 PM [employer] 11/18/2021 10:29 PM [facility] Samantha Saavedra MD LAB - CHEMISTRY CATALINA MACIAS [facility] Organization Address City/State/ZIP Co de Phone Number [facility] [address] [place] [address], [facility] [phone] from Last 3 Months or Most Recently Relevant to Health Maintenance
--- OUTSIDE RECORDS SUMMARY | 2025-01-17 01:58 | XMS_ITS | Clinical Summary ---
Author Organization [facility] Address [address] [place] [id number] Care Team Providers Care Tie Buyer Name Role Phone Rachel Prabhakar MD Primary [...] (07/01/2022): Added automatically from request for surgery [id number] Essential hypertension 03/26/2022 Forehead laceration 11/28/2021 Diverticular [...] often do you attend chur ch or congregational services? Never 06/30/2022 Do you belong to any clubs o r organizations such as islam groups, unions, fraternal or athletic groups, or [...] place to sleep or slept in a prison (including now)? No 06/30/2022 Personal Safety Answer [...] 10/25/2020 Influenza Vaccine (#1) 2024 08/20/2016 Insurance [facility] AETNA [facility] Advance Directives For more information, please contact: [phone] * Full Code (Latest Code Status on File) Date Activated Date Inactivated Comments 06/29/2022 8:01 AM 07/04/2022 12:44 PM Care Teams Tie Buyer Relationship Specialty Start Date End Date Rachel Prabhakar MD [address] [place] [id number] PCP - General Gastroenterology 06/06/24
--- OUTSIDE RECORDS SUMMARY | 2025-01-17 01:58 | XMS_ITS | CONTINUITY OF CARE DOCUMENT ---
Author Name krista velasco Address Unknown Organization [facility] Address [address] [address] [facility] [address] [place] [address] Phone [phone] Care Team Providers Care Research Spec Name Role Phone Erasto ARROYO, Renetta Unavailable [phone] PINA CROOK MD Unavailable [phone] PINA CROOK MD Unavailable INSURANCE PROVIDERS Payer name Policy type / Coverage type [place] [employer] AETNA [facility] Medicaid [id number]
--- OUTSIDE RECORDS SUMMARY | 2025-01-17 01:58 | XMS_ITS | Referral Summary ---
Author Organization [facility] Address [address] [place] [id number] Care Team Providers Care Document Review Attorney Name Role Phone Rachel Prabhakar MD Primary [...] (07/01/2022): Added automatically from request for surgery [id number] Essential hypertension 03/26/2022 Forehead laceration 11/28/2021 Diverticular [...] How often do you attend chur or samaritan services? Never 06/30/2022 Do you belong to any clubs o r organizations such as amish groups, unions, fraternal or athletic groups, or [...] place to sleep or slept in a long term (including now)? No 06/30/2022 Personal Safety Answer [...] of Treatment Not on file Insurance AETNA [facility] AETNA BETTER [facility] AETNA BETTER [facility] Advance Directives For more information, please contact: [phone] * Full Code (Latest Code Status on File) Date Activated Date Inactivated Comments 06/29/2022 8:01 AM 07/04/2022 12:44 PM Care Teams Document Review Attorney Relationship Specialty Start Date End Date Rachel Prabhakar MD [address] [address] PCP - General Gastroenterology 06/06/24
[2025-01-17 02:16] LABS: Band Neutrophils Percent 7 % (0-6); Lymphocytes Absolute Manual 3.34 K/mm3 (1.1-4.5); Lymphocytes Percent Manual 16 % (18-44); Monocytes Absolute Manual 1.67 K/mm3 (0.1-0.90); Monocytes Percent Manual 8 % (3-9); Total Cells Counted 100
[2025-01-17 02:17] LABS: Neutrophils Absolute Manual 15.88 K/mm3 (1.7-7.2); Neutrophils Percent Manual 69 % (46-73); Platelet Estimate Adequate (Adequate)
[2025-01-17 02:18] LABS: Schistocytes None Seen
[2025-01-17 02:23] LABS: Influenza A QL RT-PCR Negative (Negative); Influenza B QL RT-PCR Negative (Negative); RSV RNA, RT-PCR Negative (Negative); SARS-CoV-2 RNA PCR Negative (Negative)
--- NOTE | 2025-01-17 02:29 | ED_ITS ---
HPI - General Adult General Chief complaint: Urogenital-Female <VALERIE Aguilar Last Filed: 01/17/25 03:05> Stated complaint: UTI <VALERIE Aguilar Last Filed: 01/17/25 03:05> Time Seen by Provider: 01/17/25 01:07 <VALERIE Aguilar Last Filed: 01/17/25 03:05> Source: patient <VALERIE Aguilar Last Filed: 01/17/25 03:05> Mode of arrival: ambulatory <VALERIE Aguilar Last Filed: 01/17/25 03:05> Limitations: no limitations <VALERIE Aguilar Last Filed: 01/17/25 03:05> History of Present Illness HPI narrative: Patient is a 59-year-old female who presents the ED with report of diffuse body aches, UTI symptoms. Patient reports she was diagnosed with a UTI few weeks ago, finished antibiotics. States she does not feel she has gotten better. She does note history of frequent UTIs. Reports having increased pain with urination over the past couple of days. Reports diffuse body aches, stating her entire body hurts. Reports chills, headache, fever, diffuse abdominal pain, mild cough. Denies chest pain or shortness of breath. Denies diarrhea, constipation. Denies hematuria. Denies sick contacts. <VALERIE Aguilar Last Filed: 01/17/25 03:05> Related Data Allergies/adverse reactions: Allergies Allergy/AdvReac Type Severity Reaction Status Date / Time codeine Allergy Intermediate Itching Verified 01/05/25 19:43 hydrocodone Allergy Unknown Unknown Verified 01/05/25 19:43 <VALERIE Aguilar Last Filed: 01/17/25 03:05> Review of Systems 2 Review of Systems: All systems reviewed & are unremarkable except as noted in HPI. <VALERIE Aguilar Last Filed: 01/17/25 03:05> All systems reviewed & are unremarkable except as noted in HPI and below < Almaz Whitehead PA-C - Last Filed: 01/17/25 03:05> Exam 2 Narrative: GENERAL: Mildly ill and uncomfortable appearing, well-nourished, in mild acute distress. HEAD: Normocephalic, atraumatic. RESPIRATORY: Airway patent. Occasional wheezing throughout lower lung herman. Mildly tachypneic. CARDIOVASCULAR: Tachycardic with regular rhythm without murmurs, rubs, or gallops. ABDOMINAL: Soft, diffuse tenderness throughout abdomen, nondistended. Normoactive BS. MUSCULOSKELETAL: Moves all extremities. No gross deformities. SKIN: Warm, dry, normal color. NEURO: A&O X3. Speech clear. Cranial nerves II-XII grossly intact. Steady gait. No ataxic movements. PSYCHIATRIC: Appropriate mood and affect. Normal interaction. <Almaz Whitehead PA-C - Last Filed: 01/17/25 03:05> Course Course Emergency Course: 04:00 - This patient was signed out to me by previous ED INO Whitehead. 05:35 - STAT Rad interpretation of CT abdomen pelvis demonstrates ?right pyelonephritis and suspected cystitis. ? There are ?bilateral nonobstructing renal calculi as well as ?panic steatosis and hepatomegaly. ? I discussed the patient with hospitalist, Dr. Erazo who accepts admission. <Chas Minaya MD - Last Filed: 01/17/25 06:17> Vital Signs Vital signs: Vital Signs Pulse Rate 113 H 01/17/25 01:01 Respiratory Rate 18 01/17/25 01:01 Blood Pressure 160/88 H 01/17/25 01:01 Pulse Oximetry 97 01/17/25 01:01 Temperature 101.4 F H 01/17/25 02:38 Pulse Rate 90 01/17/25 05:26 Respiratory Rate 18 01/17/25 05:26 Blood Pressure 167/89 H 01/17/25 05:26 Pulse Oximetry 96 01/17/25 05:26 <Almaz Whitehead PA-C - Last Filed: 01/17/25 03:05> Vital Signs Pulse Rate 113 H 01/17/25 01:01 Respiratory Rate 18 01/17/25 01:01 Blood Pressure 160/88 H 01/17/25 01:01 Pulse Oximetry 97 01/17/25 01:01 Temperature 101.4 F H 01/17/25 02:38 Pulse Rate 90 01/17/25 05:26 Respiratory Rate 18 01/17/25 05:26 Blood Pressure 167/89 H 01/17/25 05:26 Pulse Oximetry 96 01/17/25 05:26 <Chas Minaya MD - Last Filed: 01/17/25 06:17> Medical Decision Making MDM Narrative Medical decision making narrative: Patient presented to ED with flu-like symptoms, UTI symptoms. Reports history of frequent UTIs. Patient was tachycardic and febrile upon arrival. Sepsis workup was initiated. Tylenol fluids given. CBC with white blood cell count of 20.9. 7% bands. BMP with sodium 133. Creatinine 1.22. Fluids ongoing. Viral swabs are negative. UA appears suspicious for infection with positive nitrate, 3+ leuk esterase, 21-50 WBC, 2+ urine bacteria. Sent for culture. Lactic acid and blood cultures ordered. CT of chest/abdomen/pelvis was obtained. Care signed out to Dr. Minaya at shift change pending STAT RAD CT results with likely admission for urosepsis. <Almaz Whitehead PA-C - Last Filed: 01/17/25 03:05> Medical Records Medical records reviewed: Yes I reviewed the external patient's medical records. <Almaz Whitehead PA-C - Last Filed: 01/17/25 03:05> Vital Signs Vital Signs: Vital Signs Pulse Rate 113 H 01/17/25 01:01 Respiratory Rate 18 01/17/25 01:01 Blood Pressure 160/88 H 01/17/25 01:01 Pulse Oximetry 97 01/17/25 01:01 Temperature 101.4 F H 01/17/25 02:38 Pulse Rate 90 01/17/25 05:26 Respiratory Rate 18 01/17/25 05:26 Blood Pressure 167/89 H 01/17/25 05:26 Pulse Oximetry 96 01/17/25 05:26 <Almaz Whitehead PA-C - Last Filed: 01/17/25 03:05> Vital Signs Pulse Rate 113 H 01/17/25 01:01 Respiratory Rate 18 01/17/25 01:01 Blood Pressure 160/88 H 01/17/25 01:01 Pulse Oximetry 97 01/17/25 01:01 Temperature 101.4 F H 01/17/25 02:38 Pulse Rate 90 01/17/25 05:26 Respiratory Rate 18 01/17/25 05:26 Blood Pressure 167/89 H 01/17/25 05:26 Pulse Oximetry 96 01/17/25 05:26 <Chas Minaya MD - Last Filed: 01/17/25 06:17> Lab Data Lab results reviewed: Yes I reviewed the patient's lab results. <Almaz Whitehead PA-C - Last Filed: 01/17/25 03:05> Result diagrams: 01/17/25 01:40 01/17/25 01:40 <Almaz Whitehead PA-C - Last Filed: 01/17/25 03:05> Labs: Lab Results 01/17/25 01/17/25 01/17/25 Range/Units 01:40 01:42 02:36 WBC 20.9 H (4.5-10.0) K/mm3 RBC 4.72 (4.2-5.4) M/mm3 Hgb 13.8 (12.0-15.0) g/dL Hct 42.4 (37.0-47.0) % MCV 89.8 (80-100) fl MCH 29.2 (26-34) pg MCHC 32.5 (32-36) g/dl RDW 14.5 (11.5-14.5) % Plt Count 312 (150-375) k/mm3 MPV 9.5 (7.4-10.4) fl Immature Gran % (Auto) Not Reportable Neut % (Auto) Not Reportable Lymph % (Auto) Not Reportable [place] % (Auto) Not Reportable Eos % (Auto) Not Reportable Baso % (Auto) Not Reportable Lymph # (Auto) Not Reportable [place] # (Auto) Not Reportable Eos # (Auto) Not Reportable Baso # (Auto) Not Reportable Abs Immat Gran (auto) Not Reportable Absolute Neuts (auto) Not Reportable Absolute Nucleated RBC Not Reportable Total Counted 100 Neutrophils % (Manual) 69 (46-73) % Band Neutrophils % 7 H (0-6) % Lymphocytes % (Manual) 16 L (18-44) % Monocytes % (Manual) 8 (3-9) % Nucleated RBC % Not Reportable Abs Neuts (Manual) 15.88 H (1.7-7.2) K/mm3 Abs Lymphs (Manual) 3.34 (1.1-4.5) K/mm3 Abs Monocytes (Manual) 1.67 H (0.1-0.90) K/mm3 Platelet Estimate Adequate (Adequate) Schistocytes None seen Sodium 133 L (137-145) mmol/L Potassium 3.5 (3.4-5.0) mmol/L Chloride 101 (98-107) mmol/L Carbon Dioxide 23 (22-30) mmol/L Anion Gap 9 (4-12) mmol/L BUN 13 (7-17) mg/dL Creatinine 1.22 H (0.7-1.0) mg/dL Estim Creat Clear Calc Not Reportable Estimated GFR 45 L (59 - ) Glucose 111 H (65-110) mg/dL Lactic Acid (0.7-2.0) mmol/L Calcium 8.3 L (8.4-10.2) mg/dL Total Bilirubin (0.2-1.3) mg/dL Direct Bilirubin (0-0.3) mg/dL AST (14-36) U/L ALT (6-35) U/L Alkaline Phosphatase (38-126) U/L Total Protein (6.3-8.2) g/dL Albumin (3.5-5.1) g/dL Urine Color Yellow (Yellow) Urine Appearance Turbid H (Clear) Urine pH 5.5 (5.0-9.0) Ur Specific [place] 1.025 (1.001-1.035) Urine Protein 2+ H (Negative) mg/dL Urine Glucose (UA) Negative (Negative) mg/dL Urine Ketones Negative (Negative) mg/dL Ur Blood (Man) 3+ H (Negative) Urine Nitrate Positive H (Negative) Urine Bilirubin Negative (Negative) Urine Urobilinogen 1.0 (<2.0) mg/dL Leukocyte Esterase Rfl 3+ H (Negative) JACQUELINE/UL Urine RBC 11-20 H (0-2) /hpf Urine WBC 21-50 (0-3) /hpf Ur Squamous Epith Cells Moderate H (Few) /hpf Urine Bacteria 2+ H (None) /hpf Urine Yeast (Budding) Present H (None) /hpf Influenza A (RT-PCR) Negative (Negative) Influenza B (RT-PCR) Negative (Negative) RSV (RT-PCR) Negative (Negative) SARS-CoV-2 RNA (RT-PCR) Negative (Negative) 01/17/25 Range/Units 03:22 WBC (4.5-10.0) K/mm3 RBC (4.2-5.4) M/mm3 Hgb (12.0-15.0) g/dL Hct (37.0-47.0) % MCV (80-100) fl MCH (26-34) pg MCHC (32-36) g/dl RDW (11.5-14.5) % Plt Count (150-375) k/mm3 MPV (7.4-10.4) fl Immature Gran % (Auto) Neut % (Auto) Lymph % (Auto) [place] % (Auto) Eos % (Auto) Baso % (Auto) Lymph # (Auto) [place] # (Auto) Eos # (Auto) Baso # (Auto) Abs Immat Gran (auto) Absolute Neuts (auto) Absolute Nucleated RBC Total Counted Neutrophils % (Manual) (46-73) % Band Neutrophils % (0-6) % Lymphocytes % (Manual) (18-44) % Monocytes % (Manual) (3-9) % Nucleated RBC % Abs Neuts (Manual) (1.7-7.2) K/mm3 Abs Lymphs (Manual) (1.1-4.5) K/mm3 Abs Monocytes (Manual) (0.1-0.90) K/mm3 Platelet Estimate (Adequate) Schistocytes Sodium (137-145) mmol/L Potassium (3.4-5.0) mmol/L Chloride (98-107) mmol/L Carbon Dioxide (22-30) mmol/L Anion Gap (4-12) mmol/L BUN (7-17) mg/dL Creatinine (0.7-1.0) mg/dL Estim Creat Clear Calc Estimated GFR (59 - ) Glucose (65-110) mg/dL Lactic Acid 0.7 (0.7-2.0) mmol/L Calcium (8.4-10.2) mg/dL Total Bilirubin 1.2 (0.2-1.3) mg/dL Direct Bilirubin 0.0 (0-0.3) mg/dL AST 14 (14-36) U/L ALT 13 (6-35) U/L Alkaline Phosphatase 87 (38-126) U/L Total Protein 6.0 L (6.3-8.2) g/dL Albumin 3.2 L (3.5-5.1) g/dL Urine Color (Yellow) Urine Appearance (Clear) Urine pH (5.0-9.0) Ur Specific [place] (1.001-1.035) Urine Protein (Negative) mg/dL Urine Glucose (UA) (Negative) mg/dL Urine Ketones (Negative) mg/dL Ur Blood (Man) (Negative) Urine Nitrate (Negative) Urine Bilirubin (Negative) Urine Urobilinogen (<2.0) mg/dL Leukocyte Esterase Rfl (Negative) JACQUELINE/UL Urine RBC (0-2) /hpf Urine WBC (0-3) /hpf Ur Squamous Epith Cells (Few) /hpf Urine Bacteria (None) /hpf Urine Yeast (Budding) (None) /hpf Influenza A (RT-PCR) (Negative) Influenza B (RT-PCR) (Negative) RSV (RT-PCR) (Negative) SARS-CoV-2 RNA (RT-PCR) (Negative) <Almaz Whitehead PA-C - Last Filed: 01/17/25 03:05> Lab Results 01/17/25 01/17/25 01/17/25 Range/Units 01:40 01:42 02:36 WBC 20.9 H (4.5-10.0) K/mm3 RBC 4.72 (4.2-5.4) M/mm3 Hgb 13.8 (12.0-15.0) g/dL Hct 42.4 (37.0-47.0) % MCV 89.8 (80-100) fl MCH 29.2 (26-34) pg MCHC 32.5 (32-36) g/dl RDW 14.5 (11.5-14.5) % Plt Count 312 (150-375) k/mm3 MPV 9.5 (7.4-10.4) fl Immature Gran % (Auto) Not Reportable Neut % (Auto) Not Reportable Lymph % (Auto) Not Reportable [place] % (Auto) Not Reportable Eos % (Auto) Not Reportable Baso % (Auto) Not Reportable Lymph # (Auto) Not Reportable [place] # (Auto) Not Reportable Eos # (Auto) Not Reportable Baso # (Auto) Not Reportable Abs Immat Gran (auto) Not Reportable Absolute Neuts (auto) Not Reportable Absolute Nucleated RBC Not Reportable Total Counted 100 Neutrophils % (Manual) 69 (46-73) % Band Neutrophils % 7 H (0-6) % Lymphocytes % (Manual) 16 L (18-44) % Monocytes % (Manual) 8 (3-9) % Nucleated RBC % Not Reportable Abs Neuts (Manual) 15.88 H (1.7-7.2) K/mm3 Abs Lymphs (Manual) 3.34 (1.1-4.5) K/mm3 Abs Monocytes (Manual) 1.67 H (0.1-0.90) K/mm3 Platelet Estimate Adequate (Adequate) Schistocytes None seen Sodium 133 L (137-145) mmol/L Potassium 3.5 (3.4-5.0) mmol/L Chloride 101 (98-107) mmol/L Carbon Dioxide 23 (22-30) mmol/L Anion Gap 9 (4-12) mmol/L BUN 13 (7-17) mg/dL Creatinine 1.22 H (0.7-1.0) mg/dL Estim Creat Clear Calc Not Reportable Estimated GFR 45 L (59 - ) Glucose 111 H (65-110) mg/dL Lactic Acid (0.7-2.0) mmol/L Calcium 8.3 L (8.4-10.2) mg/dL Total Bilirubin (0.2-1.3) mg/dL Direct Bilirubin (0-0.3) mg/dL AST (14-36) U/L ALT (6-35) U/L Alkaline Phosphatase (38-126) U/L Total Protein (6.3-8.2) g/dL Albumin (3.5-5.1) g/dL Urine Color Yellow (Yellow) Urine Appearance Turbid H (Clear) Urine pH 5.5 (5.0-9.0) Ur Specific [place] 1.025 (1.001-1.035) Urine Protein 2+ H (Negative) mg/dL Urine Glucose (UA) Negative (Negative) mg/dL Urine Ketones Negative (Negative) mg/dL Ur Blood (Man) 3+ H (Negative) Urine Nitrate Positive H (Negative) Urine Bilirubin Negative (Negative) Urine Urobilinogen 1.0 (<2.0) mg/dL Leukocyte Esterase Rfl 3+ H (Negative) JACQUELINE/UL Urine RBC 11-20 H (0-2) /hpf Urine WBC 21-50 (0-3) /hpf Ur Squamous Epith Cells Moderate H (Few) /hpf Urine Bacteria 2+ H (None) /hpf Urine Yeast (Budding) Present H (None) /hpf Influenza A (RT-PCR) Negative (Negative) Influenza B (RT-PCR) Negative (Negative) RSV (RT-PCR) Negative (Negative) SARS-CoV-2 RNA (RT-PCR) Negative (Negative) 01/17/25 Range/Units 03:22 WBC (4.5-10.0) K/mm3 RBC (4.2-5.4) M/mm3 Hgb (12.0-15.0) g/dL Hct (37.0-47.0) % MCV (80-100) fl MCH (26-34) pg MCHC (32-36) g/dl RDW (11.5-14.5) % Plt Count (150-375) k/mm3 MPV (7.4-10.4) fl Immature Gran % (Auto) Neut % (Auto) Lymph % (Auto) [place] % (Auto) Eos % (Auto) Baso % (Auto) Lymph # (Auto) [place] # (Auto) Eos # (Auto) Baso # (Auto) Abs Immat Gran (auto) Absolute Neuts (auto) Absolute Nucleated RBC Total Counted Neutrophils % (Manual) (46-73) % Band Neutrophils % (0-6) % Lymphocytes % (Manual) (18-44) % Monocytes % (Manual) (3-9) % Nucleated RBC % Abs Neuts (Manual) (1.7-7.2) K/mm3 Abs Lymphs (Manual) (1.1-4.5) K/mm3 Abs Monocytes (Manual) (0.1-0.90) K/mm3 Platelet Estimate (Adequate) Schistocytes Sodium (137-145) mmol/L Potassium (3.4-5.0) mmol/L Chloride (98-107) mmol/L Carbon Dioxide (22-30) mmol/L Anion Gap (4-12) mmol/L BUN (7-17) mg/dL Creatinine (0.7-1.0) mg/dL Estim Creat Clear Calc Estimated GFR (59 - ) Glucose (65-110) mg/dL Lactic Acid 0.7 (0.7-2.0) mmol/L Calcium (8.4-10.2) mg/dL Total Bilirubin 1.2 (0.2-1.3) mg/dL Direct Bilirubin 0.0 (0-0.3) mg/dL AST 14 (14-36) U/L ALT 13 (6-35) U/L Alkaline Phosphatase 87 (38-126) U/L Total Protein 6.0 L (6.3-8.2) g/dL Albumin 3.2 L (3.5-5.1) g/dL Urine Color (Yellow) Urine Appearance (Clear) Urine pH (5.0-9.0) Ur Specific [place] (1.001-1.035) Urine Protein (Negative) mg/dL Urine Glucose (UA) (Negative) mg/dL Urine Ketones (Negative) mg/dL Ur Blood (Man) (Negative) Urine Nitrate (Negative) Urine Bilirubin (Negative) Urine Urobilinogen (<2.0) mg/dL Leukocyte Esterase Rfl (Negative) JACQUELINE/UL Urine RBC (0-2) /hpf Urine WBC (0-3) /hpf Ur Squamous Epith Cells (Few) /hpf Urine Bacteria (None) /hpf Urine Yeast (Budding) (None) /hpf Influenza A (RT-PCR) (Negative) Influenza B (RT-PCR) (Negative) RSV (RT-PCR) (Negative) SARS-CoV-2 RNA (RT-PCR) (Negative) <Chas Minaya MD - Last Filed: 01/17/25 06:17> Imaging Data Attestation: I personally reviewed and interpreted this imaging study as follows: < Almaz Whitehead PA-C - Last Filed: 01/17/25 03:05> Discharge Plan Discharge Clinical Impression: Pyelonephritis Sepsis Qualifiers: Sepsis type: sepsis due to unspecified organism Sepsis acute organ dysfunction status: unspecified Qualified Code(s): A41.9 - Sepsis, unspecified organism <Almaz Whitehead PA-C - Last Filed: 01/17/25 03:05> Patient Disposition: Still a Patient <Almaz Whitehead PA-C - Last Filed: 01/17/25 03:05> Condition: Stable <Almaz Whitehead PA-C - Last Filed: 01/17/25 03:05> Patient Language: Spanish <Almaz Whitehead PA-C - Last Filed: 01/17/25 03:05> Prescriptions: No Action cyclobenzaprine 10 mg tablet 10 mg PO TID PRN (Reason: muscle spasm) Qty: 9 0RF methylprednisolone [Medrol (Romulo)] 4 mg tablets,dose pack See Rx Instructions .ROUTE .COMPLEX Qty: 21 0RF Rx Instructions: orally per package directions cefdinir 300 mg capsule 300 mg PO Q12H Qty: 14 0RF phenazopyridine [Pyridium] 100 mg tablet 100 mg PO TID PRN (Reason: pain) Qty: 6 0RF cefdinir 300 mg capsule 300 mg PO Q12H 10 Days Qty: 20 0RF ondansetron 4 mg tablet,disintegrating 4 mg PO Q8H PRN (Reason: nausea and vomiting) Qty: 10 0RF <Almaz Whitehead PA-C - Last Filed: 01/17/25 03:05> Follow-up/Referrals: Jessica,Rachel Gustafson MD [Primary Care Provider] - <Almaz Whitehead PA-C - Last Filed: 01/17/25 03:05> Time of Disposition: 05:35 <Almaz Whitehead PA-C - Last Filed: 01/17/25 03:05> 05:35 <Chas Minaya MD - Last Filed: 01/17/25 06:17> Sign Out Sign Out Data: Patient Sign Out occurred on 01/17/25 at 03:58. Patient's care was discussed, and care was transferred from Almaz Whitehead PA-C to Chas Minaya MD. <Almaz Whitehead PA-C - Last Filed: 01/17/25 03:05>
[2025-01-17] MEDS: ACETAMINOPHEN 500 MG TABLET 1000 MG PO (02:34)
[2025-01-17] MEDS: SODIUM CHLORIDE 0.9% IV 1,000 ML 999 ML IV CONT ×2 (02:34→03:21)
[2025-01-17 02:49] LABS: Add Urine Microscopic? YES
[2025-01-17 02:57] LABS: Color Urine Yellow (Yellow)
[2025-01-17 02:58] LABS: Appearance Urine Turbid (Clear); Bilirubin Urine Negative (Negative); Blood Urine 3+ (Negative); Glucose Urine UA Negative (Negative); Ketones Urine Negative (Negative); Nitrate Urine Positive (Negative); Protein Urine 2+ mg/dL (Negative); Specific Grav Ur 1.025 (1.001-1.035); pH Urine 5.5 (5.0-9.0)
[2025-01-17 02:59] LABS: Bacteria Urine 2+ /hpf; Budding Yeast Urine Present /hpf; Leukocyte Esterase Ur 3+ LEU/UL (Negative); Squamous Epithelial Cell Urine Moderate /hpf (Few); WBC Urine 21-50 /hpf (0-3)
[2025-01-17 03:40] LABS: Alanine Aminotransferase 13 U/L (6-35); Albumin Level 3.2 g/dL (3.5-5.1); Alkaline Phosphatase 87 U/L (38-126); Aspartate Amino Transferase 14 U/L (14-36); Bilirubin,Total 1.2 mg/dL (0.2-1.3); Lactic Acid Reflex 0.7 mmol/L (0.7-2.0)
--- NOTE | 2025-01-17 06:38 | PC.NURSE ---
PATIENT ARRIVED ON 3 [facility] AT 0635
--- NOTE | 2025-01-17 06:44 | ADMGEN ---
This patient, Mary Redman, was admitted to 3 [facility] Surg Room 329-01. Patient/family oriented to hospital policies and general routines including ID bracelet, bed and alarms, visiting hours, pain management, procedures, bathroom and other care routines, personal items, smoking policy, room service/diet, and visiting hours. Information on how to activate the Rapid Response Team has been discussed. Patient/Family are encouraged to report perceived risks to care and to ask questions if they do not understand what they are told or what they should do.
--- NOTE | 2025-01-17 07:21 | P.HP_ITS ---
H&P: HPI History of Present Illness Date/Time: 01/17/25 07:21 Chief Complaint: UTI Narrative: 59-year-old female who presents the ED with report of diffuse body aches, UTI symptoms. Patient reports she was diagnosed with a UTI few weeks ago, finished antibiotics. Patient complains of body ache, chills, fever, mild cough and diffuse abdominal pain. Of note patient has history of recurrent frequent UTIs. Pertinent ED labs: WBC 20.9, hemoglobin 13.8, platelet 312, sodium 133, potassium 3.5, creatinine 1.2, GFR 45, glucose 111, lactic acid 0.7. UA: Positive for nitrates, leukocyte esterase 3+, yeast present, bacteria 2+ Negative for influenza, RSV, COVID CT chest/abdomen/pelvis:Right pyelonephritis. Nonobstructing right renal stone, as above. Probable chronic pulmonary scarring in the right upper lobe. Patient is admitted in the setting of UTI/right pyelonephritis. Patient has been started with the ceftriaxone in the ED. urine culture was performed on 01/05 which does not show any significant finding. Repeat the urine culture. Patient had a temperature of 101.4? early this morning.During the examination patient is anxious and when asked why she is like that, she reports she is always like that. TSH and ETOH are both negative and UDS pending. Review of Systems Review of Systems: All systems reviewed & are unremarkable except as noted in HPI. All systems reviewed & are unremarkable except as noted in HPI and below PMFSH Social History Social History Smoking status: Former smoker Alcohol intake: never Substance use: never Do You Feel Safe in your Home?: Yes Lack of Transportation: No Lack of Food: Never True Current Housing: I Have Housing Concerned About Future Housing: YES Difficulty Paying Gas/Electric Bills: YES Difficulty Paying for Meds: YES Currently Unemployed: YES Education: Associate Degree Difficulty w/ Childcare or Family Care: No Spiritual care concerns: No Meds Home Medications and Allergies Home Medications ?Medication ?Instructions ?Recorded ?Confirmed ?Type albuterol sulfate 90 mcg/actuation 1 inh inhalation Q4H PRN shortness 01/17/25 01/17/25 History aerosol inhaler of breath or wheezing amlodipine 10 mg tablet 10 mg PO DAILY 01/17/25 01/17/25 History budesonide-formoterol HFA 160 2 puff inhalation Q12H 01/17/25 01/17/25 History mcg-4.5 mcg/actuation aerosol inhaler (Symbicort) tiotropium bromide 2.5 2 puff inhalation Q24H 01/17/25 01/17/25 History mcg/actuation mist for inhalation (Spiriva Respimat) Allergies Allergy/AdvReac Type Severity Reaction Status Date / Time codeine Allergy Intermediate Itching Verified 01/05/25 19:43 hydrocodone Allergy Unknown Unknown Verified 01/05/25 19:43 Vital Signs Vital Signs - 24 hr 01/17/25 01:01 01/17/25 02:38 01/17/25 05:26 Temperature 101.4 F H Pulse Rate 113 H 100 90 Respiratory Rate 18 18 18 Blood Pressure 160/88 H 156/67 H 167/89 H Pulse Oximetry 97 98 96 01/17/25 06:23 01/17/25 06:43 Temperature 98.4 F 97.9 F Pulse Rate 94 Respiratory Rate 20 Blood Pressure 151/90 H Pulse Oximetry 98 Exam Narrative: GENERAL: Mildly ill and uncomfortable appearing, well-nourished, in mild acute distress. HEAD: Normocephalic, atraumatic. RESPIRATORY: Airway patent. Occasional wheezing throughout lower lung herman. Mildly tachypneic. CARDIOVASCULAR: Tachycardic with regular rhythm without murmurs, rubs, or gallops. ABDOMINAL: Soft, diffuse tenderness throughout abdomen, nondistended. Normoactive BS. MUSCULOSKELETAL: Moves all extremities. No gross deformities. SKIN: Warm, dry, normal color. NEURO: A&O X3. Speech clear. Cranial nerves II-XII grossly intact. Steady gait. No ataxic movements. PSYCHIATRIC: Appropriate mood and affect. Normal interaction. H&P: Results Labs Labs: Short CBC 01/17/25 Range/Units 01:40 WBC 20.9 H (4.5-10.0) K/mm3 Hgb 13.8 (12.0-15.0) g/dL Hct 42.4 (37.0-47.0) % Plt Count 312 (150-375) k/mm3 BMP 01/17/25 01:40 Sodium 133 L Potassium 3.5 Chloride 101 Carbon Dioxide 23 BUN 13 Creatinine 1.22 H Glucose 111 H Calcium 8.3 L Liver Function 01/17/25 Range/Units 03:22 Total Bilirubin 1.2 (0.2-1.3) mg/dL Direct Bilirubin 0.0 (0-0.3) mg/dL AST 14 (14-36) U/L ALT 13 (6-35) U/L Alkaline Phosphatase 87 (38-126) U/L Albumin 3.2 L (3.5-5.1) g/dL Urine 01/17/25 Range/Units 02:36 Urine Color Yellow (Yellow) Urine Appearance Turbid H (Clear) Urine pH 5.5 (5.0-9.0) Ur Specific [place] 1.025 (1.001-1.035) Urine Protein 2+ H (Negative) mg/dL Urine Glucose (UA) Negative (Negative) mg/dL Assessment and Plan Assessment and plan (1) Sepsis: Qualifiers: Sepsis acute organ dysfunction status: unspecified Sepsis type: sepsis due to unspecified organism Qualified Code(s): A41.9 - Sepsis, unspecified organism Code(s): A41.9 - Sepsis, unspecified organism Status: Acute (2) Pyelonephritis: Code(s): N12 - Tubulo-interstitial nephritis, not specified as acute or chronic Status: Acute Assessment and Plan: UTI/pyelonephritis -reviewed UA -order urine culture -CT chest/abdomen/pelvis:Right pyelonephritis. Nonobstructing right renal stone. Probable chronic pulmonary scarring in the right upper lobe. -Increased ceftriaxone from 1g to 2g -monitor vitals -continue IV fluid -BUN and Cr trend. COPD -continue home meds -Home use 2L O2. HTN -Cont Amlodipine 10 mg PO QD DVT: Lovenox 40mg SQ Hospitalist MIPS Advance Care Plan I have confirmed that the patient's Advanced Care Plan is present, code status is documented, or surrogate decision maker is listed in patient medical record.: Yes Medication Reconciliation I have utilized all available resources to obtain, update and review the patients current medications (includes all prescriptions, OTC, herbals, cannabis, and nutritional supplements).: Yes
[2025-01-17] MEDS: FLUTICASONE/SALMETEROL 115-21 MCG INHALER 1 PUFF 2 PUFF INHALATION ×2 (08:27→19:34)
[2025-01-17] MEDS: SODIUM CHLORIDE 0.9% IV 1,000 ML 100 ML IV CONT ×2 (09:15→16:44)
[2025-01-17] MEDS: amLODIPine BESYLATE 10 MG TABLET PO (09:16)
[2025-01-17] MEDS: ACETAMINOPHEN 325 MG TABLET 650 MG PO ×3 (09:19→20:30)
[2025-01-17 13:26] LABS: MRSA (PCR) NOT DETECTED (NOT DETECTE)
[2025-01-17 14:28] LABS: Ethanol < 10 mg/dL (<10); Lactic Acid Reflex 1.4 mmol/L (0.7-2.0)
[2025-01-17 15:00] LABS: Thyroid Stimulating Hormone 0.754 uIU/mL (0.465-4.680)
[2025-01-17 16:38] LABS: Glucose Point of Care 132 mg/dl (65-105)
[2025-01-17] MEDS: cefTRIAXone 2 GM/NS 100 ML 2 GM/100 ML BAG IVPB (16:43)
[2025-01-17] MEDS: ONDANSETRON HCL ODT 4 MG TABLET PO (16:46)
[2025-01-17 19:50] LABS: Barbiturate Screen Urine Negative (Negative); Benzodiazepines Screen Urine Negative (Negative)
[2025-01-17 19:52] LABS: Cannabinoid Screen Urine Negative (Negative); Cocaine Screen Urine Negative (Negative); Methadone Screen Urine Negative (Negative); Opiate Screen Urine Negative (Negative); Phencyclidine Screen Urine Negative (Negative)
[2025-01-17 20:08] LABS: Amphetamine Screen Urine Positive (Negative)
[2025-01-18 04:55] VITALS: TEMP 38
[2025-01-18] MEDS: ACETAMINOPHEN 325 MG TABLET 650 MG PO ×2 (04:55→21:36)
[2025-01-18] MEDS: SODIUM CHLORIDE 0.9% IV 1,000 ML 100 ML IV CONT (04:55)
[2025-01-18 05:21] VITALS: BP 145/84; PULSE 106; RESP 20; TEMP 38; O2SAT 98
[2025-01-18 05:55] VITALS: TEMP 37.7
[2025-01-18 06:15] LABS: Basophils Absolute Auto 0.1 K/mm3 (0.0-0.1); Basophils Percent Auto 0.7 % (0.2-1.2); Eosinophils Absolute Auto 0.3 K/mm3 (0-0.3); Eosinophils Percent Auto 2.1 % (0-4.4); Hematocrit 37.1 % (37.0-47.0); Hemoglobin 11.9 g/dL (12.0-15.0); Immature Granulocyte Absolute 0.08 K/mm3 (0.00-0.031); Immature Granulocyte Percent A 0.5 % (0-0.5); Lymphocytes Absolute Auto 2.27 K/mm3 (0.9-3.2); Mean Corpuscular HGB Conc 32.1 g/dl (32-36); Mean Corpuscular Volume 90.5 fl (80-100); Mean Platelet Volume 9.9 fl (7.4-10.4); Monocytes Percent Auto 6.5 % (2.6-8.5); Neutrophils Absolute Auto 11.4 K/mm3 (1.3-6.7); Neutrophils Percent Auto 75.2 % (45.5-73.1); Platelet Count Result 258 k/mm3 (150-375); Red Cell Distribution Width 14.6 % (11.5-14.5); White Blood Count 15.1 K/mm3 (4.5-10.0)
[2025-01-18 07:08] LABS: Alanine Aminotransferase 22 U/L (6-35); Albumin Level 3.1 g/dL (3.5-5.1); Alkaline Phosphatase 101 U/L (38-126); Anion Gap 9 mmol/L (4-12); Aspartate Amino Transferase 21 U/L (14-36); Bilirubin,Total 0.6 mg/dL (0.2-1.3); Blood Urea Nitrogen 10 mg/dL (7-17); Carbon Dioxide 21 mmol/L (22-30); Chloride 105 mmol/L (98-107); Estimated CRCL calculation 57 ml/min; Estimated Glomerular Filt Rate 52; Glucose 149 mg/dL (65-110); Potassium 3.3 mmol/L (3.4-5.0); Sodium 135 mmol/L (137-145)
[2025-01-18] MEDS: ENOXAPARIN 40 MG/0.4 ML SYRINGE SUB-Q (08:21)
[2025-01-18] MEDS: amLODIPine BESYLATE 10 MG TABLET PO (08:21)
--- NOTE | 2025-01-18 09:26 | PM.IMPN ---
Progress Note: A&P Assessment and Plan (1) Sepsis: Qualifiers: Sepsis acute organ dysfunction status: unspecified Sepsis type: sepsis due to unspecified organism Qualified Code(s): A41.9 - Sepsis, unspecified organism Code(s): A41.9 - Sepsis, unspecified organism Status: Acute (2) Pyelonephritis: Code(s): N12 - Tubulo-interstitial nephritis, not specified as acute or chronic Status: Acute Assessment and Plan: UTI/pyelonephritis -reviewed UA -order urine culture -CT chest/abdomen/pelvis:Right pyelonephritis. Nonobstructing right renal stone. Probable chronic pulmonary scarring in the right upper lobe. -Increased ceftriaxone from 1g to 2g -monitor vitals -continue IV fluid -BUN and Cr trend. COPD -continue home meds -Home use 2L O2. HTN -Cont Amlodipine 10 mg PO QD DVT: Lovenox 40mg SQ Subjective Date/time seen: 01/18/25 09:26 Interval history: A the patient creatinine is improving will stop the fluid due to volume overload. Patient WBC is improving. Replaced potassium. BC shows Gram-negative bacillus. UDS shows amphetamine Review of Systems Review of Systems: All systems reviewed & are unremarkable except as noted in HPI. All systems reviewed & are unremarkable except as noted in HPI and below Exam Narrative: GENERAL: Mildly ill and uncomfortable appearing, well-nourished, in mild acute distress. HEAD: Normocephalic, atraumatic. RESPIRATORY: Airway patent. Occasional wheezing throughout lower lung herman. Mildly tachypneic. CARDIOVASCULAR: Tachycardic with regular rhythm without murmurs, rubs, or gallops. ABDOMINAL: Soft, diffuse tenderness throughout abdomen, nondistended. Normoactive BS. MUSCULOSKELETAL: Moves all extremities. No gross deformities. SKIN: Warm, dry, normal color. NEURO: A&O X3. Speech clear. Cranial nerves II-XII grossly intact. Steady gait. No ataxic movements. PSYCHIATRIC: Appropriate mood and affect. Normal interaction. Objective Data Vital Signs Vital Signs: Vital Signs - 24 hr 01/17/25 14:00 01/17/25 19:34 01/17/25 19:34 Temperature 98 F Pulse Rate 82 92 Respiratory Rate 18 20 Blood Pressure 120/83 Pulse Oximetry 100 98 Oxygen Delivery Room Air 01/17/25 20:10 01/17/25 21:39 01/18/25 04:55 Temperature 97.8 F 100.4 F H Pulse Rate 73 73 Respiratory Rate 18 18 Blood Pressure 121/71 Pulse Oximetry 95 95 Oxygen Delivery Room Air 01/18/25 05:21 01/18/25 05:55 Temperature 100.4 F H 99.9 F H Pulse Rate 106 H Respiratory Rate 20 Blood Pressure 145/84 H Pulse Oximetry 98 Oxygen Delivery Intake/Output Intake/Output: Intake & Output 01/15/25 01/16/25 01/17/25 01/18/25 23:59 23:59 23:59 23:59 Intake Total 4478.3 1400 Output Total 800 900 Balance 3678.3 500 Meds/Results Medications: Active Medications Generic Name Dose Route Start Last Admin Trade Name Freq PRN Reason Stop Dose Admin Acetaminophen 650 mg 01/17/25 05:36 01/18/25 04:55 Acetaminophen 325 Mg Tablet PO 650 mg Q4H PRN Administration Mild Pain (1-3) or Fever Albuterol 1 puff 01/17/25 07:32 Albuterol Sulfate (*Sp) Aerosol 1 Puff INHALATION Q4H PRN shortness of breath or wheezing Amlodipine Besylate 10 mg 01/17/25 09:00 01/18/25 08:21 Amlodipine Besylate 10 Mg Tablet PO 10 mg DAILY NILESH Administration Enoxaparin Sodium 40 mg 01/18/25 09:00 01/18/25 08:21 Enoxaparin 40 Mg/0.4 Ml Syringe SUB-Q 40 mg DAILY NILESH Administration Ceftriaxone Sodium 2 gm in 100 mls @ 200 mls/hr 01/17/25 16:00 01/17/25 16:43 Rocephin 2 Gm/Ns 100 Ml IVPB 200 mls/hr Q24H NILESH Administration Ondansetron HCl 4 mg 01/17/25 05:36 01/17/25 16:46 Ondansetron Hcl Odt 4 Mg Tablet PO 4 mg Q6H PRN Administration Nausea And Vomiting Fluticasone/Salmeterol 2 puff 01/17/25 08:00 01/17/25 19:34 Fluticasone/Salmeterol 115-21 Mcg Inhaler 1 Puff INHALATION 2 puff Q12HRT NILESH Administration Umeclidinium [place] 1 puff 01/17/25 08:00 01/17/25 08:30 Umeclidinium [place] 62.5 Mcg Ellipta INHALATION Not Given DAILYRT [facility] Radiology Results: ITS Impressions Chest/Abdomen/Pelvis CT 01/17/25 06:08 Impression: Right pyelonephritis. Nonobstructing right renal stone, as above. Probable chronic pulmonary scarring in the right upper lobe. Labs Labs: Laboratory Results - last 24 hr 01/17/25 01/17/25 01/17/25 12:09 14:07 16:31 WBC RBC Hgb Hct MCV MCH MCHC RDW Plt Count MPV Immature Gran % (Auto) Neut % (Auto) Lymph % (Auto) [place] % (Auto) Eos % (Auto) Baso % (Auto) Lymph # (Auto) [place] # (Auto) Eos # (Auto) Baso # (Auto) Abs Immat Gran (auto) Absolute Neuts (auto) Absolute Nucleated RBC Nucleated RBC % Sodium Potassium Chloride Carbon Dioxide Anion Gap BUN Creatinine Estim Creat Clear Calc Estimated GFR Glucose POC Capillary Glucose 132 H Lactic Acid 1.4 Calcium Total Bilirubin AST ALT Alkaline Phosphatase Total Protein Albumin TSH 0.754 Nasal MRSA (PCR) Not detected Urine Opiates Screen Urine Methadone Screen Ur Barbiturates Screen Ur Phencyclidine Scrn Ur Amphetamine Screen U Benzodiazepines Scrn Urine Cocaine Screen U Cannabinoids Screen Ethyl Alcohol < 10 01/17/25 01/18/25 16:43 05:56 WBC 15.1 H RBC 4.10 L Hgb 11.9 L Hct 37.1 MCV 90.5 MCH 29.0 MCHC 32.1 RDW 14.6 H Plt Count 258 MPV 9.9 Immature Gran % (Auto) 0.5 Neut % (Auto) 75.2 H Lymph % (Auto) 15.0 L [place] % (Auto) 6.5 Eos % (Auto) 2.1 Baso % (Auto) 0.7 Lymph # (Auto) 2.27 [place] # (Auto) 1.0 H Eos # (Auto) 0.3 Baso # (Auto) 0.1 Abs Immat Gran (auto) 0.08 H Absolute Neuts (auto) 11.4 H Absolute Nucleated RBC 0.000 Nucleated RBC % 0.0 Sodium 135 L Potassium 3.3 L Chloride 105 Carbon Dioxide 21 L Anion Gap 9 BUN 10 Creatinine 1.09 H Estim Creat Clear Calc 57 Estimated GFR 52 L Glucose 149 H POC Capillary Glucose Lactic Acid Calcium 8.0 L Total Bilirubin 0.6 AST 21 ALT 22 Alkaline Phosphatase 101 Total Protein 6.0 L Albumin 3.1 L TSH Nasal MRSA (PCR) Urine Opiates Screen Negative Urine Methadone Screen Negative Ur Barbiturates Screen Negative Ur Phencyclidine Scrn Negative Ur Amphetamine Screen Positive A U Benzodiazepines Scrn Negative Urine Cocaine Screen Negative U Cannabinoids Screen Negative Ethyl Alcohol Hospitalist MIPS Advance Care Plan I have confirmed that the patient's Advanced Care Plan is present, code status is documented, or surrogate decision maker is listed in patient medical record.: Yes Medication Reconciliation I have utilized all available resources to obtain, update and review the patients current medications (includes all prescriptions, OTC, herbals, cannabis, and nutritional supplements).: Yes
[2025-01-18] MEDS: POTASSIUM CHLORIDE 20 MEQ ER TABLET 40 MEQ PO (10:59)
[2025-01-18] MEDS: FLUTICASONE/SALMETEROL 115-21 MCG INHALER 1 PUFF 2 PUFF INHALATION ×2 (11:13→19:52)
[2025-01-18] MEDS: UMECLIDINIUM BROMIDE 62.5 MCG ELLIPTA 1 PUFF INHALATION (11:14)
[2025-01-18 13:52] VITALS: BP 144/80; PULSE 90; RESP 16; TEMP 36.4; O2SAT 97
[2025-01-18] MEDS: cefTRIAXone 2 GM/NS 100 ML 2 GM/100 ML BAG IVPB (16:15)
[2025-01-18 18:12] LABS: Hemoglobin A1C 5.9 % (<5.7)
[2025-01-18 21:38] VITALS: BP 141/86; PULSE 92; RESP 16; TEMP 37.1; O2SAT 98
[2025-01-19 06:00] VITALS: BP 152/80; PULSE 90; RESP 20; TEMP 36.8; O2SAT 100
[2025-01-19 06:09] LABS: Hematocrit 37.9 % (37.0-47.0); Hemoglobin 12.3 g/dL (12.0-15.0); Mean Corpuscular HGB Conc 32.5 g/dl (32-36); Mean Corpuscular Volume 89.4 fl (80-100); Platelet Count Result 299 k/mm3 (150-375); Red Blood Count 4.24 M/mm3 (4.2-5.4); Red Cell Distribution Width 14.6 % (11.5-14.5); White Blood Count 10.3 K/mm3 (4.5-10.0)
[2025-01-19 06:20] LABS: Alanine Aminotransferase 32 U/L (6-35); Albumin Level 3.5 g/dL (3.5-5.1); Alkaline Phosphatase 119 U/L (38-126); Anion Gap 10 mmol/L (4-12); Aspartate Amino Transferase 29 U/L (14-36); Bilirubin,Total 0.3 mg/dL (0.2-1.3); Blood Urea Nitrogen 11 mg/dL (7-17); Calcium 8.4 mg/dL (8.4-10.2); Carbon Dioxide 24 mmol/L (22-30); Chloride 105 mmol/L (98-107); Estimated CRCL calculation 65 ml/min; Estimated Glomerular Filt Rate 60; Glucose 99 mg/dL (65-110); Potassium 3.6 mmol/L (3.4-5.0); Sodium 139 mmol/L (137-145)
[2025-01-19] MEDS: amLODIPine BESYLATE 10 MG TABLET PO (07:55)
[2025-01-19] MEDS: ENOXAPARIN 40 MG/0.4 ML SYRINGE SUB-Q (07:55)
[2025-01-19 08:36] VITALS: PULSE 77; RESP 20; O2SAT 96
[2025-01-19] MEDS: UMECLIDINIUM BROMIDE 62.5 MCG ELLIPTA 1 PUFF INHALATION (08:36)
[2025-01-19] MEDS: FLUTICASONE/SALMETEROL 115-21 MCG INHALER 1 PUFF 2 PUFF INHALATION ×2 (08:36→21:06)
[2025-01-19 14:28] VITALS: BP 125/78; PULSE 87; RESP 16; TEMP 36.8; O2SAT 95
[2025-01-19] MEDS: cefTRIAXone 2 GM/NS 100 ML 2 GM/100 ML BAG IVPB (15:22)
--- NOTE | 2025-01-19 17:08 | P.PNIM_ITS ---
Progress Note: A&P Assessment and Plan (1) Sepsis: Qualifiers: Sepsis acute organ dysfunction status: unspecified Sepsis type: sepsis due to unspecified organism Qualified Code(s): A41.9 - Sepsis, unspecified o rganism Code(s): A41.9 - Sepsis, unspecified organism Status: Acute (2) Pyelonephritis: Code(s): N12 - Tubulo-interstitial nephritis, not specified as acute or chronic Status: Acute Assessment and Plan: UTI/pyelonephritis -reviewed UA -order urine culture -CT chest/abdomen/pelvis:Right pyelonephritis. Nonobstructing right renal stone. Probable chronic pulmonary scarring in the right upper lobe. -Increased ceftriaxone from 1g to 2g -monitor vitals -continue IV fluid -BUN and Cr trend. COPD -continue home meds -Home use 2L O2. HTN -Cont Amlodipine 10 mg PO QD DVT: Lovenox 40mg SQ Subjective Date/time seen: 01/19/25 17:08 Interval history: Pending Sensitivity. Will discharge tomorrow possibly with oral antibiotics. Review of Systems Review of Systems: All systems reviewed & are unremarkable except as noted in HPI. All systems reviewed & are unremarkable except as noted in HPI and below Exam Narrative: GENERAL: Mildly ill and uncomfortable appearing, well-nourished, in mild acute distress. HEAD: Normocephalic, atraumatic. RESPIRATORY: Airway patent. Occasional wheezing throughout lower lung herman. Mildly tachypneic. CARDIOVASCULAR: Tachycardic with regular rhythm without murmurs, rubs, or gallops. ABDOMINAL: Soft, diffuse tenderness throughout abdomen, nondistended. Normoactive BS. MUSCULOSKELETAL: Moves all extremities. No gross deformities. SKIN: Warm, dry, normal color. NEURO: A&O X3. Speech clear. Cranial nerves II-XII grossly intact. Steady gait. No ataxic movements. PSYCHIATRIC: Appropriate mood and affect. Normal interaction. Objective Data Vital Signs Vital Signs: Vital Signs - 24 hr 01/18/25 21:38 01/19/25 06:00 01/19/25 07:51 Temperature 98.8 F 98.2 F Pulse Rate 92 90 Respiratory Rate 16 20 Blood Pressure 141/86 H 152/80 H Pulse Oximetry 98 100 Oxygen Delivery Room Air 01/19/25 08:36 01/19/25 08:36 01/19/25 14:28 Temperature 98.2 F Pulse Rate 77 77 87 Respiratory Rate 20 20 16 Blood Pressure 125/78 Pulse Oximetry 96 95 Oxygen Delivery Room Air Intake/Output Intake/Output: Intake & Output 01/16/25 01/17/25 01/18/25 01/19/25 23:59 23:59 23:59 23:59 Intake Total 4578.3 2620 1620 Output Total 800 1700 650 Balance 3778.3 920 970 Meds/Results Medications: Active Medications Generic Name Dose Route Start Last Admin Trade Name Freq PRN Reason Stop Dose Admin Acetaminophen 650 mg 01/17/25 05:36 01/18/25 21:36 Acetaminophen 325 Mg Tablet PO 650 mg Q4H PRN Administration Mild Pain (1-3) or Fever Albuterol 1 puff 01/17/25 07:32 Albuterol Sulfate (*Sp) Aerosol 1 Puff INHALATION Q4H PRN shortness of breath or wheezing Amlodipine Besylate 10 mg 01/17/25 09:00 01/19/25 07:55 Amlodipine Besylate 10 Mg Tablet PO 10 mg DAILY NILESH Administration Enoxaparin Sodium 40 mg 01/18/25 09:00 01/19/25 07:55 Enoxaparin 40 Mg/0.4 Ml Syringe SUB-Q 40 mg DAILY NILESH Administration Ceftriaxone Sodium 2 gm in 100 mls @ 200 mls/hr 01/17/25 16:00 01/19/25 15:52 Rocephin 2 Gm/Ns 100 Ml IVPB Infused Q24H NILESH Infusion Ondansetron HCl 4 mg 01/17/25 05:36 01/17/25 16:46 Ondansetron Hcl Odt 4 Mg Tablet PO 4 mg Q6H PRN Administration Nausea And Vomiting Fluticasone/Salmeterol 2 puff 01/17/25 08:00 01/19/25 08:36 Fluticasone/Salmeterol 115-21 Mcg Inhaler 1 Puff INHALATION 2 puff Q12HRT NILESH Administration Umeclidinium [place] 1 puff 01/17/25 08:00 01/19/25 08:36 Umeclidinium [place] 62.5 Mcg Ellipta INHALATION 1 puff DAILYRT NILESH Administration Radiology Results: ITS Impressions Chest/Abdomen/Pelvis CT 01/17/25 06:08 Impression: Right pyelonephritis. Nonobstructing right renal stone, as above. Probable chronic pulmonary scarring in the right upper lobe. Labs Labs: Laboratory Results - last 24 hr 01/18/25 01/19/25 05:56 05:55 WBC 10.3 H RBC 4.24 Hgb 12.3 Hct 37.9 MCV 89.4 MCH 29.0 MCHC 32.5 RDW 14.6 H Plt Count 299 MPV 10.0 Sodium 139 Potassium 3.6 Chloride 105 Carbon Dioxide 24 Anion Gap 10 BUN 11 Creatinine 0.96 Estim Creat Clear Calc 65 Estimated GFR 60 Glucose 99 Hemoglobin A1c 5.9 H Calcium 8.4 Total Bilirubin 0.3 AST 29 ALT 32 Alkaline Phosphatase 119 Total Protein 7.0 Albumin 3.5 Hospitalist MIPS Advance Care Plan I have confirmed that the patient's Advanced Care Plan is present, code status is documented, or surrogate decision maker is listed in patient medical record.: Yes Medication Reconciliation I have utilized all available resources to obtain, update and review the patients current medications (includes all prescriptions, OTC, herbals, cannabis, and nutritional supplements).: Yes
[2025-01-19 20:19] VITALS: BP 122/73; PULSE 91; RESP 16; TEMP 36.5; O2SAT 100
[2025-01-19] MEDS: ACETAMINOPHEN 325 MG TABLET 650 MG PO (20:25)
[2025-01-20 05:55] VITALS: BP 132/91; PULSE 82; RESP 18; TEMP 36.6; O2SAT 95
[2025-01-20 06:12] LABS: Hematocrit 40.7 % (37.0-47.0); Hemoglobin 12.8 g/dL (12.0-15.0); Mean Corpuscular HGB Conc 31.4 g/dl (32-36); Mean Corpuscular Hemoglobin 28.9 pg (26-34); Mean Corpuscular Volume 91.9 fl (80-100); Mean Platelet Volume 10.3 fl (7.4-10.4); Platelet Count Result 330 k/mm3 (150-375); Red Blood Count 4.43 M/mm3 (4.2-5.4); Red Cell Distribution Width 14.8 % (11.5-14.5); White Blood Count 9.4 K/mm3 (4.5-10.0)
[2025-01-20 06:26] LABS: Alanine Aminotransferase 33 U/L (6-35); Albumin Level 3.6 g/dL (3.5-5.1); Alkaline Phosphatase 111 U/L (38-126); Anion Gap 10 mmol/L (4-12); Aspartate Amino Transferase 21 U/L (14-36); Bilirubin,Total 0.2 mg/dL (0.2-1.3); Blood Urea Nitrogen 16 mg/dL (7-17); Calcium 8.6 mg/dL (8.4-10.2); Carbon Dioxide 26 mmol/L (22-30); Chloride 105 mmol/L (98-107); Estimated CRCL calculation 63 ml/min; Estimated Glomerular Filt Rate 58; Glucose 115 mg/dL (65-110); Potassium 3.7 mmol/L (3.4-5.0); Sodium 141 mmol/L (137-145)
--- NOTE | 2025-01-20 08:13 | P.DS_ITS ---
DS: Admitting Diagnosis Discharge Date 01/20/2025 Admitting Diagnosis UTI DS: Discharge Diagnosis Discharge Diagnosis (1) Sepsis: Qualifiers: Sepsis acute organ dysfunction status: unspecified Sepsis type: sepsis due to unspecified organism Qualified Code(s): A41.9 - Sepsis, unspecified organism Code(s): A41.9 - Sepsis, unspecified organism Status: Acute (2) Pyelonephritis: Code(s): N12 - Tubulo-interstitial nephritis, not specified as acute or chronic Status: Acute Assessment and Plan: UTI/pyelonephritis -reviewed UA -reviewed blood culture and urine culture -positive for U coli sensitive or augmentin -CT chest/abdomen/pelvis:Right pyelonephritis. Nonobstructing right renal stone. Probable chronic pulmonary scarring in the right upper lobe. -Increased ceftriaxone from 1g to 2g -monitor vitals -continue IV fluid -BUN and Cr trend. COPD -continue home meds -Home use 2L O2. HTN -Cont Amlodipine 10 mg PO QD DVT: Lovenox 40mg SQ DS: Summary Hospital Course Hospital Course: 59-year-old female who presents the ED with report of diffuse body aches, UTI symptoms. Patient reports she was diagnosed with a UTI few weeks ago, finished antibiotics. Patient complains of body ache, chills, fever, mild cough and diffuse abdominal pain. Of note patient has history of recurrent frequent UTIs. Pertinent ED labs: WBC 20.9, hemoglobin 13.8, platelet 312, sodium 133, potassium 3.5, creatinine 1.2, GFR 45, glucose 111, lactic acid 0.7. UA: Positive for nitrates, leukocyte esterase 3+, yeast present, bacteria 2+ Negative for influenza, RSV, COVID CT chest/abdomen/pelvis:Right pyelonephritis. Nonobstructing right renal stone, as above. Probable chronic pulmonary scarring in the right upper lobe. Patient is admitted in the setting of UTI/right pyelonephritis. Patient has been started with the ceftriaxone in the ED. urine culture was performed on 01/05 which does not show any significant finding. Repeat the urine culture. Patient had a temperature of 101.4? early this morning.During the examination patient is anxious and when asked why she is like that, she reports she is always like that. TSH and ETOH are both negative and UDS positive for amphetamine but patient denies taking any stimulants. Patient was treated with ceftriaxone 2 g. Blood culture shows E coli which is sensitive for Augmentin. Patient needs to take Augmentin 2 times a day for 7 days. Urine culture is negative Status at Discharge Cognitive/behavioral status at discharge: Stable Time Spent with Patient Time attestation: Total time spent providing and/or coordinating discharge services: 45 minute Exam Narrative: GENERAL: Mildly ill and uncomfortable appearing, well-nourished, in mild acute distress. HEAD: Normocephalic, atraumatic. RESPIRATORY: Airway patent. Occasional wheezing throughout lower lung herman. Mildly tachypneic. CARDIOVASCULAR: Tachycardic with regular rhythm without murmurs, rubs, or gallops. ABDOMINAL: Soft, diffuse tenderness throughout abdomen, nondistended. Normoactive BS. MUSCULOSKELETAL: Moves all extremities. No gross deformities. SKIN: Warm, dry, normal color. NEURO: A&O X3. Speech clear. Cranial nerves II-XII grossly intact. Steady gait. No ataxic movements. PSYCHIATRIC: Appropriate mood and affect. Normal interaction. DS: Data Data Completed and Pending Labs on day of discharge: Labs from last 24 hours 01/20/25 05:54 WBC 9.4 RBC 4.43 Hgb 12.8 Hct 40.7 MCV 91.9 MCH 28.9 MCHC 31.4 L RDW 14.8 H Plt Count 330 MPV 10.3 Sodium 141 Potassium 3.7 Chloride 105 Carbon Dioxide 26 Anion Gap 10 BUN 16 Creatinine 0.99 Estim Creat Clear Calc 63 Estimated GFR 58 L Glucose 115 H Calcium 8.6 Total Bilirubin 0.2 AST 21 ALT 33 Alkaline Phosphatase 111 Total Protein 7.0 Albumin 3.6 Preliminary micro results at discharge 01/17/25 03:22 Blood Culture - Preliminary Blood Escherichia Coli 01/17/25 03:22 Blood Culture - Preliminary Blood Discharge Plan Discharge Attending physician on discharge: Roosevelt Zarate Discharging Clinician: Roosevelt Zarate Anticipated Discharge Date/Time: 01/20/25 08:01 Patient Disposition: Home Activity: as tolerated Diet: as tolerated Discharge Instructions: Please hydrate well. Please take Augmentin 2 times a day for 7 days. Check blood pressure 1 to 2 times a day. Record and bring into your doctor for review. Call your doctor if your blood pressure is greater than 180/110 or less than 90/45. Walk with cane or other assist device. Take precautions to avoid falls. Rise slowly from a lying or sitting position. Pause before standing or walking. Contact your doctor or call 911 and come to the Emergency Room if you have any type of trauma, lightheadedness with standing or other worrisome symptoms. Avoid NSAIDs (ibuprofen, naproxen, Aleve). Tylenol is safe to take. Follow-up with your primary care provider in 1-2 weeks. Please call for appointment. Thank you for using [facility] for your health care needs. Patient Instructions: Antibiotic Form Patient Language: Sinhala Stand Alone Forms: General Discharge Information Follow-up/Referrals: Jessica,Rachel Gustafson MD [Primary Care Provider] - Discharge Medications: New amoxicillin-pot clavulanate 875-125 mg tablet 1 tablet PO Q12H Qty: 14 0RF Rx Instructions: Please continue the course for 7 days Continued amlodipine 10 mg tablet 10 mg PO DAILY albuterol sulfate 90 mcg/actuation HFA aerosol inhaler 1 inh INHALATION Q4H PRN (Reason: shortness of breath or wheezing) budesonide-formoterol [Symbicort] 160-4.5 mcg/actuation HFA aerosol inhaler 2 puff INHALATION Q12H Spiriva Respimat 2.5 mcg/actuation mist 2 puff INHALATION Q24H Date of admission: 01/18/25 11:13 Primary Care Provider: JessicaRachel Admitting Provider: Madi Erazo Attending physician on admission: Madi Erazo Condition: Stable
[2025-01-20] MEDS: ENOXAPARIN 40 MG/0.4 ML SYRINGE SUB-Q (08:17)
[2025-01-20] MEDS: amLODIPine BESYLATE 10 MG TABLET PO (08:17)
[2025-01-20 09:17] VITALS: O2SAT 97
[2025-01-20] MEDS: FLUTICASONE/SALMETEROL 115-21 MCG INHALER 1 PUFF 2 PUFF INHALATION (09:17)
[2025-01-20] MEDS: UMECLIDINIUM BROMIDE 62.5 MCG ELLIPTA 1 PUFF INHALATION (09:17)
[2025-01-20 14:00] VITALS: BP 124/91; PULSE 82; RESP 16; TEMP 36.6; O2SAT 99
== END 2025-01-20 15:45 | disposition home or self-care (01) | DRG 463 ==
LOC: ANHED 03:58 → ANH3MEDSUR 06:31
PROVIDERS: Physician Assistant; Admitting Provider Internal Medicine; Emergency Provider Preventive Medicine Aerospace Medicine; PCP Internal Medicine Gastroenterology; Visit Provider General Practice
DX: N10 Acute pyelonephritis (principal); B96.20 Unspecified Escherichia coli [E. coli] as the cause of diseases classified elsewhere; N20.0 Calculus of kidney; J44.9 Chronic obstructive pulmonary disease, unspecified; Z20.822 Contact with and (suspected) exposure to COVID-19
CPT/HCPCS: 36415; 71260; 74177; 80048; 80053; 80076; 80307; 81001; 82077; 82948; 83036; 83605; 84443; 85025; 85027; 87040; 87086; 87186; 87637; 87641; 94640; 96361; 96365; 96372; 99285; A9270; G0378; J0696; J1650; J7030; Q9967

== ENCOUNTER 2025-07-01 12:03 | Inpatient (IN) | payer OTHER, SELFPAY ==
[2025-07-01] VITALS (15 sets, daily range): BP systolic 154–181; BP diastolic 65–102; PULSE 91–116; RESP 14–32; TEMP 36.4–36.7; O2SAT 94–98; BMI 34.8
--- NOTE | ~2025-07-01 | US_ITS ---
EXAMINATION: US thyroid DATE: 07/03/2025 11:41 INDICATION: Thyroid nodule TECHNIQUE: Multiple ultrasound images of the thyroid were obtained. COMPARISON: CT dated 07/02/2025 FINDINGS: The right thyroid lobe measures 3.2 x 1.5 x 1.1 cm. The left thyroid lobe measures 5.7 x 4.1 x 3.4 cm. 4.7 cm solid isoechoic nodule with a few internal echogenic and shadowing coarse calcifications in the left thyroid lobe (TI-RADS 4, moderately suspicious , FNA if >=1.5 cm, annual followup is >=1 cm). Additional 7 mm solid hypoechoic TI-RADS 4 nodule with ill-defined margins in the right thyroid lobe. IMPRESSION: 1. Multinodular goiter. Recommend ultrasound guided biopsy of the 4.7 cm TI-RADS 4 left thyroid nodule. Reviewed, dictated and finalized at location A. IMPRESSION: 1. Multinodular goiter. Recommend ultrasound guided biopsy of the 4.7 cm TI-RAD S 4 left thyroid nodule.
--- NOTE | ~2025-07-01 | XR_ITS ---
Examination: XR chest 2V Clinical History: sob x 1 month Comparison: X-rays 01/05/2025 CT chest abdomen and pelvis 01/17/2025 Technique: PA and Lateral Findings: Cardiomediastinal silhouette normal size and configuration. Chronic scarring right lung base. Lungs otherwise clear. No acute bony abnormality. IMPRESSION: 1. No acute cardiopulmonary findings. Reviewed, dictated and finalized at location R.
--- NOTE | ~2025-07-01 | CT_ITS ---
EXAMINATION: CT diagnostic chest w con DATE: 07/02/2025 14:29 INDICATION: SOB, leucocytosis, CXR Clear TECHNIQUE: Computed tomography (CT) of the chest was performed with 100 mL Omnipaque-350 intravenous contrast. Additional 3D reconstructions utilizing coronal maximum intensity projection (MIP) were performed. Automated exposure control and iterative reconstruction technique were employed. The dose-length product was 330.95 mGy-cm. COMPARISON: None FINDINGS: No significant change in mild right lower lobar basilar atelectasis/scarring along the diaphragm and additional discoid atelectasis/scarring in the right lower lobe and anterior segment of the right upper lobe. Calcified left lower lobe nodule along with calcified left hilar and mediastinal lymph nodes consistent with old granulomatous disease. No pneumonia, pulmonary edema or pleural effusion. Heart size is normal. No pericardial effusion. Thoracic aorta is normal in caliber with no dissection. Heterogeneous enhancement of a 3.5 cm left thyroid mass. No pathologically enlarged thoracic lymphadenopathy. There are couple stones at the upper pole the left kidney the larger measuring 1.4 cm. Moderate lower cervical and moderate lower thoracic spondylosis. IMPRESSION: 1. No acute cardiopulmonary disease. 2. 3.5 cm left thyroid mass. Recommend thyroid ultrasound for risk stratification. Reviewed, dictated and finalized at location A. IMPRESSION: 1. No acute cardiopulmonary disease. 2. 3.5 cm left thyroid mass. Recommend thyroid ultrasound for risk stratificati on.
--- OUTSIDE RECORDS SUMMARY | 2025-07-01 12:05 | XMS_ITS | Clinical Summary ---
Author Organization [facility] Address [address] [place] [address] Care Team Providers Care Store Team Leader Name Role Phone Unavailable Primary Care Provider Unavailabl e Source Comments [facility],non-owned Affiliates and Associated Physician Practices is amultiple site organization consisting of ambulatory clinics and hospital sitesin [place], [place], [place] and [place]. This disclosure is being madepursuant to the Care Everywhere program and may not contain all information available regarding this patient. Last updated 18.[facility] Allergies Active Allergy Reactions Criticality Noted Date Comments Codeine Other 11/18/2021 unk Hydrocodone-Acetaminophen Other 11/18/2021 unk Medications * Be aware that medications may not be up to date on this document. Alwaysverify current medications with the patient. No known [...] of Binge Drinking Not on file 05/2022 Comments Unknown Sex and Gender Information Value Date Recorded Sex Assigned at Not on file Legal Sex Female 6:13 AM FRONT DESK SPECIALIST Gender Identity Not on file Sexual Orientation Not on file Last Filed Vital Signs Vital Sign Reading Time Taken Comments Blood Pressure 171/120 12/19/2021 2:15 PM FR[employer] DESK SPECIALIST Pulse 118 12/19/2021 2:15 PM FRONT DESK SPECIALIST Temperature 36.4 C (97.5 F) 12/19/2021 2:15 PM FR[employer] DESK SPECIALIST Respiratory Rate 17 11/19/2021 1:30 AM FR[employer] DESK SPECIALIST Oxygen Saturation 98% 12/19/2021 2:15 PM FR[employer] DESK SPECIALIST Inhaled Oxygen Concentration - - Weight 96.6 kg (213 lb) 12/19/2021 2:15 PM FR[employer] DESK SPECIALIST Height 162.6 cm (5' 4) 12/19/2021 2:15 PM FR[employer] DESK SPECIALIST Body Mass Index 36.56 12/19/2021 2:15 PM FRONT DESK SPECIALIST Plan of Treatment Health Maintenance Due Date Last Done Comments COLOGUARD (AGES 45-75) - COL ON CA SCREENING 1967 COLON MONITORING 1967 COLONOSCOPY - COLON CA SCREENING 1967 CT COLONOGRAPHY - COLON CA SCREENING 1967 Colorectal Cancer Screening 1967 FIT - COLON CA SCREENING 1967 FLEX SIG - COLON CA SCREENING 1967 LIPID TESTING 1967 MAMMOGRAM 1967 HIV SCREENING 1982 HEPATITIS C SCREENING 06/13/1985 DTAP/TDAP/TD VACCINES (1 - Tdap) 1986 HEPATITIS B VACCINE (1 of 3 - 19+ 3-dose series) 1986 PNEUMOCOCCAL VACCINE 50+ (1 of 2 - PCV) 1986 PAP SMEAR 1988 ZOSTER VACCINE (1 of 2) 2017 DEPRESSION SCREENING 10/11/2024 SCREENING FOR DIABETES 11/18/2024 11/18/2021 COVID-19 VACCINE (2 - 2024-2 6 season) 2025 10/25/2020 INFLUENZA VACCINE (#1) 2025 HIB VACCINE Aged Out No longer [...] COMPREHENSIVE METABOLIC PANEL STAT 11/18/2021 10:24 PM FRONT DESK SPECIALIST from Last 3 Months or Most Recently Relevant to Health Maintenance Results * (ABNORMAL) COMPREHENSIVE METABOLIC PANEL (11/18/2021 10:24 PM FRONT DESK SPECIALIST) BUN 15 7 - 26 mg/dL 11/18/2021 10:56 PM [facility] Creatinine 0.96 0.56 - 0.96 mg/dL 11/18/2021 10:56 PM [facility] Sodium 142 136 - 145 mmol/L 11/18/2021 10:56 PM [facility] Potassium 3.3(L) 3.5 - 4.5 mmol/L 11/18/2021 10:56 PM [facility] Chloride 108(H) 98 - 107 mmol/L 11/18/2021 10:56 PM [facility] CO2 23 22 - 29 mmol/L 11/18/2021 10:56 PM [facility] Glucose 101 70 - 115 mg/dL 11/18/2021 10:56 PM [facility] Calcium 8.4 8.4 - 10.2 mg/dL 11/18/2021 10:56 PM [facility] Protein Total 6.8 6.0 - 8.3 g/dL 11/18/2021 10:56 PM [facility] Albumin 3.3(L) 3.4 - 5.0 g/dL 11/18/2021 10:56 PM [facility] Bilirubin Total 0.5 0.2 - 1.2 mg/dL 11/18/2021 10:56 PM [facility] Alkaline Phosphatase 91 40 - 150 U/L 11/18/2021 10:56 PM [facility] ALT 17 5 - 55 U/L 11/18/2021 10:56 PM [facility] AST 14 5 - 34 U/L 11/18/2021 10:56 PM [facility] Anion Gap 14 8 - 18 11/18/2021 10:56 PM [facility] BUN/Creatinine Ratio 16 7 - 23 11/18/2021 10:56 PM [facility] Osmolality Calculated 295 270 - 300 mOsm/kg 11/18/2021 10:56 PM [facility] Albumin/Globulin Ratio 0.9(L) 1.1 - 2.3 11/18/2021 10:56 PM [facility] eGFR by CKD-EPI 70(L) >=90 mL/min/1.7 3 m2 11/18/2021 10:56 PM [facility] Blood BLOOD SPECIMEN / Unknown Venipuncture / Unknown 11/18/2021 10:24 PM [employer] 11/18/2021 10:29 PM [facility] Samantha Saavedra MD LAB - CHEMISTRY ORDERABLES F inal Result [facility] [address] [place] [address], [facility] [phone] from Last 3 Months or Most Recently Relevant to Health Maintenance Insurance [employer]IC [employer]
--- NOTE | 2025-07-01 12:18 | ECG_ITS ---
Test Date: 2025-07-01 12:22:38 Measurements Intervals [place] Rate: 100 P: -9 MA: 128 QRS: 27 QRSD: 82 T: 18 QT: 367 QTc: 475 Interpretive Statements SINUS TACHYCARDIA ABNORMAL RHYTHM ECG No previous ECG available for comparison Electronically Signed On 07-02-2025 14:12:05 CDT by Liu Curiel M.D.
[2025-07-01 12:43] LABS: Hematocrit 45.0 % (37.0-47.0); Hemoglobin 14.6 g/dL (12.0-15.0); Immature Granulocyte Percent A 0.4 % (0-0.5); Lymphocytes Absolute Auto 2.95 K/mm3 (0.9-3.2); Mean Corpuscular HGB Conc 32.4 g/dl (32-36); Mean Corpuscular Hemoglobin 28.6 pg (26-34); Mean Corpuscular Volume 88.2 fl (80-100); Nucleated Red Blood Cells Absolute Auto 0.000 K/mm3 (0.0-0.012); Nucleated Red Blood Cells Perc 0.0 % (0.0-0.2); Platelet Count Result 330 k/mm3 (150-375); Red Blood Count 5.10 M/mm3 (4.2-5.4); White Blood Count 16.4 K/mm3 (4.5-10.0)
--- NOTE | 2025-07-01 13:01 | ED.GENADULT ---
HPI - General Adult General Chief complaint: Shortness of Breath/Dyspnea Stated complaint: SOB Time Seen by Provider: 07/01/25 12:34 History of Present Illness HPI narrative: 60-year-old female history of COPD presents to the emergency department for evaluation for worsening shortness breath over the course of the last month. Patient states she did undergo a move and was unable to access her meds. Patient states she did recently find them. Patient states that the shortness of breath has worsened over the course of the last month but worsened acutely today and patient felt increasingly weak. Patient states she does have an oxygen concentrator at home but does not utilize it and does not have an O2 requirement. Patient states she does not have a albuterol nebulizer. Related Data Home Medications ?Medication ?Instructions ?Recorded ?Confirmed ?Last Taken ?Type albuterol sulfate 90 mcg/actuation 1 inh inhalation Q4H PRN shortness 01/17/25 07/01/25 Unknown History aerosol inhaler of breath or wheezing amlodipine 10 mg tablet 10 mg PO DAILY 01/17/25 07/01/25 03/09/25 History budesonide-formoterol HFA 160 2 puff inhalation Q12H 01/17/25 07/01/25 03/09/25 History mcg-4.5 mcg/actuation aerosol inhaler (Symbicort) tiotropium bromide 2.5 2 puff inhalation Q24H 01/17/25 07/01/25 03/09/25 History mcg/actuation mist for inhalation (Spiriva Respimat) Allergies Allergy/AdvReac Type Severity Reaction Status Date / Time codeine Allergy Intermediate Nausea and Verified 07/01/25 17:55 Vomiting hydrocodone Allergy Unknown Nausea and Verified 07/01/25 17:55 Vomiting Review of Systems Review of Systems: All systems reviewed & are unremarkable except as noted in HPI and below PMFSH Social History Social History Years smoked: 30 Smoking status: Current every day smoker Tobacco type: cigarettes Alcohol intake: never Substance use: never Do You Feel Safe in your Home?: Yes Lack of Transportation: No Lack of Food: Sometimes True Current Housing: I Have Housing Concerned About Future Housing: No Difficulty Paying Gas/Electric Bills: No Difficulty Paying for Meds: No Currently Unemployed: No Education: Trade/Vocational Certificate Difficulty w/ Childcare or Family Care: No Spiritual care concerns: No Exam Narrative: APPEARANCE: Increased work of breathing HEAD: normocephalic, atraumatic. EYES: PERRLA/EOMI, conjunctivae clear. NOSE: Normal no drainage EARS:TMS clear with good light reflex. THROAT: Pharynx clear, no exudate. NECK: Supple. No adenopathy, no masses. RESPIRATORY: Expiratory wheeze CARDIOVASCULAR: Regular rate and rhythm without murmurs rubs or gallops. ABDOMINAL: Soft, nontender, nondistended, normal bowel sounds MUSCULOSKELETAL: Moves all extremities. Strength/ROM intact, No edema, No calf tenderness. NEURO: Alert. Cranial nerves II through XII intact. Good gait. Good coordination SKIN: Warm, dry. Normal Color Course Vital Signs Vital signs: Vital Signs Temperature 97.6 F 07/01/25 12:04 Pulse Rate 104 H 07/01/25 12:04 Respiratory Rate 20 07/01/25 12:04 Blood Pressure 169/94 H 07/01/25 12:04 Pulse Oximetry 96 07/01/25 12:04 Oxygen Delivery Room Air 07/01/25 12:04 Temperature 97.6 F 07/01/25 12:04 Pulse Rate 103 H 07/01/25 18:00 Respiratory Rate 14 07/01/25 17:40 Blood Pressure 158/99 H 07/01/25 18:17 Pulse Oximetry 97 07/01/25 17:40 Oxygen Delivery Room Air 07/01/25 17:40 Medical Decision Making [facility] Narrative Medical decision making narrative: 52-year-old female presents emergency department for evaluation for worsening shortness of breath. Patient has had difficulty breathing and wheezing for the last month but states that acutely worsened over the last few days. Patient initially treated with 5 mg of nebulized albuterol and 125 mg of IV Solu-Medrol had patient did have some minimal improvement. Patient was then treated with an additional 10 mg of nebulized albuterol along with 2 mg of impratropium. Patient was also treated with 1 g of Mag sulfate. After the continuous neb on re-evaluation patient states she does feel improved but patient does still have significant wheeze and increased work of breathing. Chest x-ray was negative for pneumonia and patient was negative for influenza RSV and for COVID. Patient is afebrile but does have a leukocytosis of 16.4 the hemoglobin of 14.6. Patient did have a potassium of 2.8 and this was repleted with 40 mEq of p.o. potassium. With patient's persistent respiratory difficulty along with her leukocytosis and history of COPD patient was started on Rocephin azithromycin and blood cultures ordered. Patient was willing to stay for hospitalization. Patient reports he does have some weakness at this point patient is very tired appearing. Patient was able to ambulate to the bathroom without difficulty. Patient's blood pressure was elevated at time of admission but patient states she had not taken her amlodipine this morning. She was treated with her 10 mg of p.o. amlodipine while in the ED. Case was discussed with the hospitalist patient was accepted for admission. Patient was well-appearing at time of admission. Patient will go to the IMU. Differential Diagnosis Differential Diagnosis: COVID, RSV, influenza, pneumonia, COPD exacerbation, pneumothorax, pulmonary embolism Vital Signs Vital Signs: Vital Signs Temperature 97.6 F 07/01/25 12:04 Pulse Rate 104 H 07/01/25 12:04 Respiratory Rate 20 07/01/25 12:04 Blood Pressure 169/94 H 07/01/25 12:04 Pulse Oximetry 96 07/01/25 12:04 Oxygen Delivery Room Air 07/01/25 12:04 Temperature 97.6 F 07/01/25 12:04 Pulse Rate 103 H 07/01/25 18:00 Respiratory Rate 14 07/01/25 17:40 Blood Pressure 158/99 H 07/01/25 18:17 Pulse Oximetry 97 07/01/25 17:40 Oxygen Delivery Room Air 07/01/25 17:40 Lab Data Lab results reviewed: Yes I reviewed the patient's lab results. 07/01/25 12:36 07/01/25 12:36 Labs: Lab Results 07/01/25 07/01/25 Range/Units 12:36 13:10 WBC 16.4 H (4.5-10.0) K/mm3 RBC 5.10 (4.2-5.4) M/mm3 Hgb 14.6 (12.0-15.0) g/dL Hct 45.0 (37.0-47.0) % MCV 88.2 (80-100) fl MCH 28.6 (26-34) pg MCHC 32.4 (32-36) g/dl RDW 13.9 (11.5-14.5) % Plt Count 330 (150-375) k/mm3 MPV 10.1 (7.4-10.4) fl Immature Gran % (Auto) 0.4 (0-0.5) % Neut % (Auto) 74.0 H (45.5-73.1) % Lymph % (Auto) 18.0 L (18.3-44.2) % [place] % (Auto) 4.3 (2.6-8.5) % Eos % (Auto) 2.4 (0-4.4) % Baso % (Auto) 0.9 (0.2-1.2) % Lymph # (Auto) 2.95 (0.9-3.2) K/mm3 [place] # (Auto) 0.7 H (0.1-0.6) K/mm3 Eos # (Auto) 0.4 H (0-0.3) K/mm3 Baso # (Auto) 0.1 (0.0-0.1) K/mm3 Abs Immat Gran (auto) 0.06 H (0.00-0.031) K/mm3 Absolute Neuts (auto) 12.2 H (1.3-6.7) K/mm3 Absolute Nucleated RBC 0.000 (0.0-0.012) K/mm3 Nucleated RBC % 0.0 (0.0-0.2) % Sodium 137 (137-145) mmol/L Potassium 2.8 L* (3.4-5.0) mmol/L Chloride 101 (98-107) mmol/L Carbon Dioxide 27 (22-30) mmol/L Anion Gap 9 (4-12) mmol/L BUN 16 (7-17) mg/dL Creatinine 0.89 (0.7-1.0) mg/dL Estim Creat Clear Calc 64 ml/min Estimated GFR > 60 (59 - ) Glucose 191 H (65-110) mg/dL Calcium 8.6 (8.4-10.2) mg/dL Total Bilirubin 0.9 (0.2-1.3) mg/dL AST 25 (14-36) U/L ALT 25 (6-35) U/L Alkaline Phosphatase 101 (38-126) U/L NT-Pro-B Natriuret Pep 100 (19.9-100) pg/mL Total Protein 7.6 (6.3-8.2) g/dL Albumin 3.8 (3.5-5.1) g/dL Influenza A (RT-PCR) Negative (Negative) Influenza B (RT-PCR) Negative (Negative) RSV (RT-PCR) Negative (Negative) SARS-CoV-2 RNA (RT-PCR) Negative (Negative) Imaging Data Radiologist's impression: Impressions Chest X-Ray 07/01/25 13:04 IMPRESSION: 1. No acute cardiopulmonary findings. ECG Data EKG #1: EKG Interpretation: normal rate, tachycardia, no ectopy, non-specific ST changes, normal QRS, normal QT and NL axis Discharge Plan Discharge Clinical Impression: Community acquired pneumonia, COPD (chronic obstructive pulmonary disease) Patient Disposition: Still a Patient Condition: Serious
[2025-07-01 13:03] LABS: Alanine Aminotransferase 25 U/L (6-35); Albumin Level 3.8 g/dL (3.5-5.1); Alkaline Phosphatase 101 U/L (38-126); Anion Gap 9 mmol/L (4-12); Aspartate Amino Transferase 25 U/L (14-36); Bilirubin,Total 0.9 mg/dL (0.2-1.3); Blood Urea Nitrogen 16 mg/dL (7-17); Calcium 8.6 mg/dL (8.4-10.2); Carbon Dioxide 27 mmol/L (22-30); Chloride 101 mmol/L (98-107); Estimated CRCL calculation 64 ml/min; Estimated Glomerular Filt Rate > 60; Glucose 191 mg/dL (65-110); Potassium 2.8 mmol/L (3.4-5.0); Sodium 137 mmol/L (137-145); Total Protein 7.6 g/dL (6.3-8.2)
[2025-07-01] MEDS: ALBUTEROL SULFATE NEB 2.5 MG/3 ML INH 5 MG INHALATION (13:11)
[2025-07-01 13:49] LABS: Influenza A QL RT-PCR Negative (Negative); Influenza B QL RT-PCR Negative (Negative); RSV RNA, RT-PCR Negative (Negative); SARS-CoV-2 RNA PCR Negative (Negative)
[2025-07-01 13:55] LABS: NT Pro B Type Natriuretic Pept 100 pg/mL (19.9-100)
[2025-07-01] MEDS: POTASSIUM CHLORIDE 20 MEQ PACKET (FOR LIQUID) 40 MEQ PO (14:29)
[2025-07-01] MEDS: IPRATROPIUM BR 0.02% INH SOLN 0.5 MG/2.5 ML VIAL 2 MG INHALATION (14:34)
[2025-07-01] MEDS: ALBUTEROL SULFATE NEB 2.5 MG/3 ML INH 10 MG INHALATION (14:34)
[2025-07-01] MEDS: MAGNESIUM SULF 1 GM/D5W 100 ML 1 GM/100 ML BAG IVPB (14:38)
[2025-07-01] MEDS: LACTATED RINGERS 1,000 ML 999 ML IV CONT (14:41)
[2025-07-01] MEDS: cefTRIAXone 1 GM in SODIUM CHLORIDE 0.9% IV 50 ML 100 ML IVPB (16:30)
[2025-07-01] MEDS: AZITHROMYCIN IV 500 MG in SODIUM CHLORIDE 0.9% IV 250 ML IVPB (16:59)
--- OUTSIDE RECORDS SUMMARY | 2025-07-01 17:33 | XMS_ITS | Clinical Summary ---
Author Organization [facility] Address [address] [address] Care Team Providers Care Annual Giving Officer Name Role Phone Unavailable Primary Care Provider Unavailabl e Source Comments [facility],non-owned Affiliates and Associated Physician Practices is amultiple site organization consisting of ambulatory clinics and hospital sitesin [place], [place], [place] and [place]. This disclosure is being madepursuant to the Care Everywhere program and may not contain all information available regarding this patient. Last updated 18.[facility] Allergies Active Allergy Reactions Criticality Noted Date [...] on file Legal Sex Female 6:13 AM LMFT Gender Identity Not on file Sexual Orientation Not on file Last Filed Vital Signs Vital Sign Reading Time Taken Comments Blood Pressure 171/120 12/19/2021 2:15 PM LMFT Pulse 118 12/19/2021 2:15 PM LMFT Temperature 36.4 C (97.5 F) 12/19/2021 2:15 PM LMFT Respiratory Rate 17 11/19/2021 1:30 AM LMFT Oxygen Saturation 98% 12/19/2021 2:15 PM LMFT Inhaled Oxygen Concentration - - Weight 96.6 kg (213 lb) 12/19/2021 2:15 PM LMFT Height 162.6 cm (5' 4) 12/19/2021 2:15 PM LMFT Body Mass Index 36.56 12/19/2021 2:15 PM LMFT Plan of Treatment Health Maintenance Due Date [...] COMPREHENSIVE METABOLIC PANEL STAT 11/18/2021 10:24 PM LMFT from Last 3 Months or Most Recently Relevant to Health Maintenance Results * (ABNORMAL) COMPREHENSIVE METABOLIC PANEL (11/18/2021 10:24 PM LMFT) BUN 15 7 - 26 mg/dL 11/18/2021 10:56 PM [facility] Creatinine 0.96 0.56 - 0.96 mg/dL 11/18/2021 10:56 PM [facility] Sodium 142 136 - 145 mmol/L 11/18/2021 10:56 PM [facility] Potassium 3.3(L) 3.5 - 4.5 mmol/L 11/18/2021 10:56 PM [facility] Chloride 108(H) 98 - 107 mmol/L 11/18/2021 10:56 PM [facility] CO2 23 22 - 29 mmol/L 11/18/2021 10:56 PM [facility] Glucose 101 70 - 115 mg/dL 11/18/2021 10:56 PM [facility] Calcium 8.4 8.4 - 10.2 mg/dL 11/18/2021 10:56 PM [facility] Protein Total 6.8 6.0 - 8.3 g/dL 11/18/2021 10:56 PM [facility] Albumin 3.3(L) 3.4 - 5.0 g/dL 11/18/2021 10:56 PM [facility] Bilirubin Total 0.5 0.2 - 1.2 mg/dL 11/18/2021 10:56 PM [facility] Alkaline Phosphatase 91 40 - 150 U/L 11/18/2021 10:56 PM [facility] ALT 17 5 - 55 U/L 11/18/2021 10:56 PM [facility] AST 14 5 - 34 U/L 11/18/2021 10:56 PM [facility] Anion Gap 14 8 - 18 11/18/2021 10:56 PM [facility] BUN/Creatinine Ratio 16 7 - 23 11/18/2021 10:56 PM [facility] Osmolality Calculated 295 270 - 300 mOsm/kg 11/18/2021 10:56 PM [facility] Albumin/Globulin Ratio 0.9(L) 1.1 - 2.3 11/18/2021 10:56 PM [facility] eGFR by CKD-EPI 70(L) >=90 mL/min/1.7 3 m2 11/18/2021 10:56 PM [facility] Blood BLOOD SPECIMEN / Unknown Venipuncture / Unknown 11/18/2021 10:24 PM LMFT 11/18/2021 10:29 PM [facility] Samantha Saavedra MD LAB - CHEMISTRY ORDERABLES F inal Result [facility] [address] [place] [address], [facility] [phone] from Last 3 Months or Most Recently Relevant to Health Maintenance Insurance [employer]
--- NOTE | 2025-07-01 17:54 | ADMGEN ---
This patient, Mary Redman, was admitted to IMU Room 231-01. Patient/family oriented to hospital policies and general routines including ID bracelet, bed and alarms, visiting hours, pain management, procedures, bathroom and other care routines, personal items, smoking policy, room service/diet, and visiting hours. Information on how to activate the Rapid Response Team has been discussed. Patient/Family are encouraged to report perceived risks to care and to ask questions if they do not understand what they are told or what they should do.
--- NOTE | 2025-07-01 20:20 | PM.IMHP ---
H&P: HPI History of Present Illness Date/Time: 07/01/25 20:20 Chief Complaint: SOB Narrative: 60-year-old female history of COPD presents to the emergency room for evaluation of ongoing SOB for 1 month. Patient admits she has not been able to access her medications due to a recent move. She reports a history of HTN, and COPD citing she has not had her medicines in over months. She denies any drug or alcohol use at this time. Patient reports she had a cough and difficulty breathing that began a couple of weeks ago. The patient reported a history of recurrent pneumonia and expressed concern about possibly developing pneumonia again. The patient experienced a choking incident with rice and had been coughing since then. The patient reported weakness and muscle cramps, which were attributed to low potassium levels. The patient had not been vomiting and maintained a normal appetite. The patient had not taken lisinopril for four months due to medication storage issues and had recently found their inhalers, although they had been stored in a hot environment. The patient smoked cigarettes, approximately one pack every few days, and had recently moved to a potentially moldy old building. The patient experienced expiratory wheezing and coarse lung sounds, with weak legs, swollen ankles, and numb toes. The patient had no history of diabetes but developed high blood pressure after a severe COVID-19 infection, despite previously having low blood pressure. ED workup reveals: Patient arrive to emergency room, was initially treated with 5 mg of nebulized albuterol and 125 mg of IV Solu-Medrol, only minimal improvement, patient was then treated with an additional 10 mg of nebulized albuterol along with 2 mg of, she was also given 1 g of Mag sulfate IV, after continuous neb on re-evaluation patient reported mild improvement continue to have significant wheeze and increased work of breathing. The chest x-ray was negative for PNA patient was negative for influenza, RSV and COVID. Although she was afebrile there was leukocytosis of 16.4 and hgb of 14.6. Patient also was reported with hypokalemia of 2.8 which was replaced with 40 mEq of p.o. K+. Patient was given 1 g Rocephin and 500 mg of azithromycin IV P, blood cultures were obtained patient was also given 10 mg amlodipine for HTN upon arrival. Patient admitted to IMU in the setting of acute COPD exacerbation. Review of Systems Review of Systems: All systems reviewed & are unremarkable except as noted in HPI and below PMFSH Social History Social History Years smoked: 30 Smoking status: Current every day smoker Tobacco type: cigarettes Alcohol intake: never Substance use: never Do You Feel Safe in your Home?: Yes Lack of Transportation: No Lack of Food: Sometimes True Current Housing: I Have Housing Concerned About Future Housing: No Difficulty Paying Gas/Electric Bills: No Difficulty Paying for Meds: No Currently Unemployed: No Education: Trade/Vocational Certificate Difficulty w/ Childcare or Family Care: No Spiritual care concerns: No Meds Home Medications and Allergies Home Medications ?Medication ?Instructions ?Recorded ?Confirmed ?Type albuterol sulfate 90 mcg/actuation 1 inh inhalation Q4H PRN shortness 01/17/25 07/01/25 History aerosol inhaler of breath or wheezing amlodipine 10 mg tablet 10 mg PO DAILY 01/17/25 07/01/25 History budesonide-formoterol HFA 160 2 puff inhalation Q12H 01/17/25 07/01/25 History mcg-4.5 mcg/actuation aerosol inhaler (Symbicort) tiotropium bromide 2.5 2 puff inhalation Q24H 01/17/25 07/01/25 History mcg/actuation mist for inhalation (Spiriva Respimat) Allergies Allergy/AdvReac Type Severity Reaction Status Date / Time codeine Allergy Intermediate Nausea and Verified 07/01/25 17:55 Vomiting hydrocodone Allergy Unknown Nausea and Verified 07/01/25 17:55 Vomiting Vital Signs Vital Signs - 24 hr 07/01/25 12:04 07/01/25 12:30 07/01/25 12:30 Temperature 97.6 F Pulse Rate 104 H 96 Respiratory Rate 20 28 H Blood Pressure 169/94 H 181/102 H Pulse Oximetry 96 97 94 Oxygen Delivery Room Air Room Air Room Air 07/01/25 13:11 07/01/25 13:22 07/01/25 14:31 Temperature Pulse Rate 96 91 100 Respiratory Rate 32 H 22 H Blood Pressure Pulse Oximetry Oxygen Delivery 07/01/25 14:31 07/01/25 14:34 07/01/25 15:36 Temperature Pulse Rate 100 100 98 Respiratory Rate 17 18 23 H Blood Pressure 176/101 H Pulse Oximetry 97 Oxygen Delivery 07/01/25 17:36 07/01/25 17:40 07/01/25 18:00 Temperature Pulse Rate 96 96 103 H Respiratory Rate 14 14 Blood Pressure 168/93 H Pulse Oximetry 97 97 Oxygen Delivery Room Air 07/01/25 18:17 07/01/25 20:00 Temperature Pulse Rate Respiratory Rate Blood Pressure 158/99 H Pulse Oximetry 97 Oxygen Delivery Room Air Exam Narrative: APPEARANCE: Increased work of breathing HEAD: normocephalic, atraumatic. EYES: PERRLA/EOMI, conjunctivae clear. NOSE: Normal no drainage EARS:TMS clear with good light reflex. THROAT: Pharynx clear, no exudate. NECK: Supple. No adenopathy, no masses. RESPIRATORY: Expiratory wheeze CARDIOVASCULAR: Regular rate and rhythm without murmurs rubs or gallops. ABDOMINAL: Soft, nontender, nondistended, normal bowel sounds MUSCULOSKELETAL: Moves all extremities. Strength/ROM intact, No edema, No calf tenderness. NEURO: Alert. Cranial nerves II through XII intact. Good gait. Good coordination SKIN: Warm, dry. Normal Color H&P: Results Labs Labs: Short CBC 07/01/25 Range/Units 12:36 WBC 16.4 H (4.5-10.0) K/mm3 Hgb 14.6 (12.0-15.0) g/dL Hct 45.0 (37.0-47.0) % Plt Count 330 (150-375) k/mm3 BMP 07/01/25 12:36 Sodium 137 Potassium 2.8 L* Chloride 101 Carbon Dioxide 27 BUN 16 Creatinine 0.89 Glucose 191 H Calcium 8.6 Liver Function 07/01/25 Range/Units 12:36 Total Bilirubin 0.9 (0.2-1.3) mg/dL AST 25 (14-36) U/L ALT 25 (6-35) U/L Alkaline Phosphatase 101 (38-126) U/L Albumin 3.8 (3.5-5.1) g/dL Pulse Oximetry Attestation: I personally reviewed and interpreted this pulse oximetry as follows: Imaging Chest x-ray: Radiologist's impression: Findings: Cardiomediastinal silhouette normal size and configuration. Chronic scarring right lung base. Lungs otherwise clear. No acute bony abnormality. IMPRESSION: 1. No acute cardiopulmonary findings. Assessment and Plan Assessment and plan (1) COPD (chronic obstructive pulmonary disease): Code(s): J44.9 - Chronic obstructive pulmonary disease, unspecified Status: Acute Assessment and Plan: ? COPD, acute exacerbation ? continue telemetry monitoring ? continue oxygen titration keep Spo2 >93% ? continue Duoneb tx q 4hrs as needed for wheezing or SOB ? activity as tolerated ? check vitals q 4 hrs ? elevated WBC, ? Azithromycin 500mg IV for x3 doses, 1st dose given in the ED ? Ceftriaxone 1gm q 24 hrs Methylprednisolon 60mg IVP q 6hrs resume home medications (2) HTN (hypertension): Code(s): I10 - Essential (primary) hypertension Status: Acute Assessment and Plan: -chronic, pt non-compliant with home medications 158/99 restart home medication Amlodipine 10 mg p.o. Plan Continue home medications: VTE Prophylaxis: SCDs DIET: Heart healthy Anticipated hospital stay: >2days Code Status: Full code
[2025-07-01] MEDS: ALBUTEROL SULFATE NEB 2.5 MG/3 ML INH INHALATION (22:00)
[2025-07-02] VITALS (21 sets, daily range): BP systolic 128–168; BP diastolic 64–87; PULSE 56–116; RESP 16–28; TEMP 36–36.8; O2SAT 93–100
[2025-07-02] MEDS: ALBUTEROL SULFATE NEB 2.5 MG/3 ML INH INHALATION ×4 (02:00→21:46)
[2025-07-02] MEDS: UMECLIDINIUM BROMIDE 62.5 MCG ELLIPTA 1 PUFF INHALATION (07:28)
[2025-07-02] MEDS: FLUTICASONE/SALMETEROL 115-21 MCG INHALER 1 PUFF 2 PUFF INHALATION ×2 (07:28→21:46)
[2025-07-02 08:19] LABS: Hematocrit 43.1 % (37.0-47.0); Hemoglobin 13.9 g/dL (12.0-15.0); Mean Corpuscular HGB Conc 32.3 g/dl (32-36); Mean Corpuscular Hemoglobin 28.8 pg (26-34); Mean Corpuscular Volume 89.2 fl (80-100); Platelet Count Result 373 k/mm3 (150-375); Red Blood Count 4.83 M/mm3 (4.2-5.4); White Blood Count 31.5 K/mm3 (4.5-10.0)
[2025-07-02 09:04] LABS: Alanine Aminotransferase 28 U/L (6-35); Albumin Level 3.8 g/dL (3.5-5.1); Alkaline Phosphatase 124 U/L (38-126); Anion Gap 12 mmol/L (4-12); Aspartate Amino Transferase 28 U/L (14-36); Bilirubin,Total 0.4 mg/dL (0.2-1.3); Blood Urea Nitrogen 18 mg/dL (7-17); Calcium 9.2 mg/dL (8.4-10.2); Carbon Dioxide 23 mmol/L (22-30); Chloride 102 mmol/L (98-107); Estimated CRCL calculation 67 ml/min; Estimated Glomerular Filt Rate > 60; Glucose 295 mg/dL (65-110); Potassium 3.0 mmol/L (3.4-5.0); Sodium 137 mmol/L (137-145); Total Protein 7.7 g/dL (6.3-8.2)
[2025-07-02] MEDS: POTASSIUM CHLORIDE 20 MEQ PACKET (FOR LIQUID) 40 MEQ PO ×2 (11:34→17:34)
[2025-07-02] MEDS: cefTRIAXone 1 GM in SODIUM CHLORIDE 0.9% IV 50 ML 100 ML IVPB (13:10)
[2025-07-02] MEDS: CALCIUM CARBONATE (TUMS) 500 MG (200 MG ELEMENTAL) PO (13:11)
--- NOTE | 2025-07-02 13:18 | PM.IMPN ---
Progress Note: A&P Assessment and Plan (1) HTN (hypertension): Code(s): I10 - Essential (primary) hypertension Status: Acute (2) Community acquired pneumonia: Code(s): J18.9 - Pneumonia, unspecified organism Status: Acute (3) COPD (chronic obstructive pulmonary disease): Code(s): J44.9 - Chronic obstructive pulmonary disease, unspecified Status: Acute Plan 60-year-old female history of COPD presents to the emergency room for evaluation of ongoing SOB for 1 month. Patient admits she has not been able to access her medications due to a recent move. She reports a history of HTN, and COPD citing she has not had her medicines in over months. 1. Acute respiratory distress: Currently on room air Negative for influenza, RSV, COVID Chest x-ray unremarkable Obtain CT chest Noted leukocytosis of 21.5 today Follow-up blood cultures Continue with albuterol, fluticasone salmeterol Continue with ceftriaxone, azithromycin Will switch to prednisone taper from Solu-Medrol 2. History of hypertension: Continue with Norvasc Add p.r.n. IV hydralazine 3. Hypokalemia: Supplement potassium 4. Diabetes mellitus: hemoglobin 5.9 BG check TID AC and HS Add SS insulin Expect hyperglycemia in setting of steroid use Will adjust dose as needed 5. Code status: Full 6. DVT prophylaxis: Heparin subQ 7. Disposition: Pending improvement, can be transferred out of IMU Time Spent With Patient Time: 42 minutes Subjective Date/time seen: 07/02/25 13:18 Interval history: No acute events overnight, currently on room air Review of Systems Review of Systems: All systems reviewed & are unremarkable except as noted in HPI and below Exam Narrative: APPEARANCE: No acute distress HEAD: normocephalic, atraumatic. EYES: PERRLA/EOMI, conjunctivae clear. THROAT: , no exudate. NECK: Supple. RESPIRATORY: Decreased breath sounds bilaterally, no added sounds heard CARDIOVASCULAR: Regular rate and rhythm without murmurs rubs or gallops. ABDOMINAL: Soft, nontender, nondistended, normal bowel sounds MUSCULOSKELETAL: No edema NEURO: Alert. SKIN: Warm, dry. Normal Color Objective Data Vital Signs Vital Signs: Vital Signs - 24 hr 07/01/25 13:22 07/01/25 14:31 07/01/25 14:31 Temperature Pulse Rate 91 100 100 Respiratory Rate 22 H 17 Blood Pressure 176/101 H Pulse Oximetry 97 Oxygen Delivery Fraction of Inspired Oxygen 07/01/25 14:34 07/01/25 15:36 07/01/25 17:36 Temperature Pulse Rate 100 98 96 Respiratory Rate 18 23 H 14 Blood Pressure 168/93 H Pulse Oximetry 97 Oxygen Delivery Fraction of Inspired Oxygen 07/01/25 17:40 07/01/25 18:00 07/01/25 18:17 Temperature Pulse Rate 96 103 H Respiratory Rate 14 Blood Pressure 158/99 H Pulse Oximetry 97 Oxygen Delivery Room Air Fraction of Inspired Oxygen 07/01/25 20:00 07/01/25 20:00 07/01/25 20:00 Temperature 98.1 F Pulse Rate 108 H 106 H Respiratory Rate 22 H Blood Pressure 154/65 H Pulse Oximetry 97 96 Oxygen Delivery Room Air Fraction of Inspired Oxygen 07/01/25 22:00 07/01/25 22:00 07/01/25 22:03 Temperature Pulse Rate 109 H 116 H 109 H Respiratory Rate 20 20 Blood Pressure Pulse Oximetry 98 Oxygen Delivery Room Air Fraction of Inspired Oxygen 07/01/25 22:09 07/02/25 00:00 07/02/25 00:00 Temperature Pulse Rate 105 H 116 H Respiratory Rate 20 Blood Pressure Pulse Oximetry 97 Oxygen Delivery Room Air Fraction of Inspired Oxygen 07/02/25 00:00 07/02/25 02:00 07/02/25 02:00 Temperature 98.3 F Pulse Rate 115 H 113 H 110 H Respiratory Rate 28 H 20 Blood Pressure 162/83 H Pulse Oximetry 96 Oxygen Delivery Fraction of Inspired Oxygen 07/02/25 02:09 07/02/25 03:53 07/02/25 04:00 Temperature 98.2 F Pulse Rate 106 H 111 H Respiratory Rate 20 23 H Blood Pressure 149/78 H Pulse Oximetry 95 97 Oxygen Delivery Room Air Fraction of Inspired Oxygen 07/02/25 04:00 07/02/25 06:51 07/02/25 07:30 Temperature Pulse Rate 111 H 100 Respiratory Rate Blood Pressure Pulse Oximetry 96 Oxygen Delivery Room Air Fraction of Inspired Oxygen 07/02/25 07:30 07/02/25 07:37 07/02/25 08:00 Temperature 98.2 F Pulse Rate 99 99 108 H Respiratory Rate 20 20 18 Blood Pressure 168/87 H Pulse Oximetry 95 Oxygen Delivery Fraction of Inspired Oxygen 07/02/25 08:00 07/02/25 10:00 Temperature Pulse Rate 107 H 93 Respiratory Rate Blood Pressure Pulse Oximetry Oxygen Delivery Fraction of Inspired Oxygen Intake/Output Intake/Output: Intake & Output 06/29/25 06/30/25 07/01/25 07/02/25 23:59 23:59 23:59 23:59 Intake Total 1400 1462 Balance 1400 1462 Meds/Results Medications: Active Medications Generic Name Dose Route Start Last Admin Trade Name Freq PRN Reason Stop Dose Admin Albuterol 2.5 mg 07/01/25 20:00 07/02/25 07:27 Albuterol Sulfate Neb 2.5 Mg/3 Ml Inh INHALATION 2.5 mg Q6HRT NILESH Administration Albuterol 1 puff 07/01/25 20:20 Albuterol Sulfate (*Sp) Aerosol 1 Puff INHALATION Q4H PRN Shortness Of Breath Or Wheezing Amlodipine Besylate 10 mg 07/02/25 09:00 07/02/25 09:01 Amlodipine Besylate 10 Mg Tablet PO 10 mg DAILY NILESH Administration Calcium Carbonate 200 mg 07/02/25 12:49 07/02/25 13:11 Calcium Carbonate (Tums) 500 Mg (200 Mg Elemental) PO 200 mg Q6H PRN Administration Indigestion Dextrose 12.5 gm 07/02/25 09:15 Dextrose 50% 25 Gm/50 Ml Syringe IV PUSH PRN PRN Hypoglycemia Protocol Glucagon 1 mg 07/02/25 09:15 Glucagon For Inj 1 Mg Vial IM PRN PRN Hypoglycemia Protocol Glucose 15 gm 07/02/25 09:15 Glucose Oral Gel 15 Gm Of Glucse In 37.5 Gm Tube PO PRN PRN Hypoglycemia Protocol Hydralazine HCl 10 mg 07/02/25 09:13 Hydralazine Hcl 20 Mg/Ml Vial IV PUSH Q6HR PRN Blood Pressure - >160/90 Ceftriaxone Sodium 1 gm/ 50 mls @ 100 mls/hr 07/02/25 14:00 07/02/25 13:10 Sodium Chloride IVPB 100 mls/hr Q24H NILESH Administration Azithromycin 500 mg/ Sodium 250 mls @ 250 mls/hr 07/02/25 17:00 Chloride IVPB 07/05/25 17:59 Q24H NILESH Dextrose 1,000 mls @ 100 mls/hr 07/02/25 09:15 Dextrose 5% 1,000 Ml IVPB PRN PRN Hypoglycemia Protocol Insulin Aspart 3 - 6 units 07/02/25 12:00 07/02/25 12:45 Insulin Aspart (*Bkc) 100 Units/Ml SUB-Q Not Given TIDWM NILESH Protocol Insulin Aspart 1 - 3 units 07/02/25 21:00 Insulin Aspart (*Bkc) 100 Units/Ml SUB-Q HS NILESH Protocol Methylprednisolone Sodium Succinate 60 mg 07/01/25 18:00 07/02/25 11:34 Methylprednisolone Sod Succ 125 Mg Vial IV PUSH 60 mg Q6HR NILESH Administration Potassium Chloride 40 meq 07/02/25 09:00 07/02/25 11:34 Potassium Chloride 20 Meq Packet (For Liquid) PO 07/02/25 17:01 40 meq BID NILESH Administration Fluticasone/Salmeterol 2 puff 07/02/25 08:00 07/02/25 07:28 Fluticasone/Salmeterol 115-21 Mcg Inhaler 1 Puff INHALATION 2 puff Q12HRT NILESH Administration Umeclidinium [place] 1 puff 07/02/25 08:00 07/02/25 07:28 Umeclidinium [place] 62.5 Mcg Ellipta INHALATION 1 puff DAILYRT NILESH Administration Radiology Results: ITS Impressions Chest X-Ray 07/01/25 13:04 IMPRESSION: 1. No acute cardiopulmonary findings. Labs Labs: Laboratory Results - last 24 hr 07/01/25 07/01/25 07/02/25 12:36 13:10 08:10 WBC 31.5 H RBC 4.83 Hgb 13.9 Hct 43.1 MCV 89.2 MCH 28.8 MCHC 32.3 RDW 14.1 Plt Count 373 MPV 10.1 Sodium 137 Potassium 3.0 L Chloride 102 Carbon Dioxide 23 Anion Gap 12 BUN 18 H Creatinine 0.87 Estim Creat Clear Calc 67 Estimated GFR > 60 Glucose 295 H POC Capillary Glucose Calcium 9.2 Total Bilirubin 0.4 AST 28 ALT 28 Alkaline Phosphatase 124 NT-Pro-B Natriuret Pep 100 Total Protein 7.7 Albumin 3.8 Influenza A (RT-PCR) Negative Influenza B (RT-PCR) Negative RSV (RT-PCR) Negative SARS-CoV-2 RNA (RT-PCR) Negative 09/22/25 11:50 WBC RBC Hgb Hct MCV MCH MCHC RDW Plt Count MPV Sodium Potassium Chloride Carbon Dioxide Anion Gap BUN Creatinine Estim Creat Clear Calc Estimated GFR Glucose POC Capillary Glucose 284 H Calcium Total Bilirubin AST ALT Alkaline Phosphatase NT-Pro-B Natriuret Pep Total Protein Albumin Influenza A (RT-PCR) Influenza B (RT-PCR) RSV (RT-PCR) SARS-CoV-2 RNA (RT-PCR) Quality VTE Prophylaxis VTE prophylaxis: pharmacologic ordered
[2025-07-02] MEDS: AZITHROMYCIN IV 500 MG in SODIUM CHLORIDE 0.9% IV 250 ML IVPB (17:28)
[2025-07-02] MEDS: INSULIN ASPART (*BKC) 100 UNITS/ML SUB-Q ×2 (17:30→20:53)
[2025-07-03] VITALS (17 sets, daily range): BP systolic 136–154; BP diastolic 75–96; PULSE 83–114; RESP 16–20; TEMP 36.6–36.7; O2SAT 93–100
[2025-07-03] MEDS: CALCIUM CARBONATE (TUMS) 500 MG (200 MG ELEMENTAL) PO ×3 (00:28→19:23)
[2025-07-03] MEDS: ALBUTEROL SULFATE NEB 2.5 MG/3 ML INH INHALATION ×4 (02:58→21:04)
[2025-07-03 06:17] LABS: Hematocrit 42.8 % (37.0-47.0); Hemoglobin 13.5 g/dL (12.0-15.0); Immature Granulocyte Percent A 1.6 % (0-0.5); Lymphocytes Absolute Auto 2.32 K/mm3 (0.9-3.2); Mean Corpuscular HGB Conc 31.5 g/dl (32-36); Mean Corpuscular Hemoglobin 28.7 pg (26-34); Mean Corpuscular Volume 91.1 fl (80-100); Nucleated Red Blood Cells Absolute Auto 0.000 K/mm3 (0.0-0.012); Nucleated Red Blood Cells Perc 0.0 % (0.0-0.2); Platelet Count Result 363 k/mm3 (150-375); Red Blood Count 4.70 M/mm3 (4.2-5.4); White Blood Count 31.8 K/mm3 (4.5-10.0)
[2025-07-03] MEDS: FLUTICASONE/SALMETEROL 115-21 MCG INHALER 1 PUFF 2 PUFF INHALATION ×2 (07:16→21:05)
[2025-07-03 07:17] LABS: Alanine Aminotransferase 20 U/L (6-35); Albumin Level 3.5 g/dL (3.5-5.1); Alkaline Phosphatase 119 U/L (38-126); Anion Gap 7 mmol/L (4-12); Aspartate Amino Transferase 24 U/L (14-36); Bilirubin,Total 0.2 mg/dL (0.2-1.3); Blood Urea Nitrogen 21 mg/dL (7-17); Calcium 9.2 mg/dL (8.4-10.2); Carbon Dioxide 26 mmol/L (22-30); Chloride 106 mmol/L (98-107); Estimated CRCL calculation 72 ml/min; Estimated Glomerular Filt Rate > 60; Glucose 150 mg/dL (65-110); Magnesium 2.4 mg/dL (1.6-2.3); Potassium 3.8 mmol/L (3.4-5.0); Sodium 139 mmol/L (137-145); Total Protein 7.0 g/dL (6.3-8.2)
[2025-07-03] MEDS: UMECLIDINIUM BROMIDE 62.5 MCG ELLIPTA 1 PUFF INHALATION (08:25)
[2025-07-03] MEDS: INSULIN ASPART (*BKC) 100 UNITS/ML SUB-Q ×2 (12:08→21:55)
--- NOTE | 2025-07-03 13:26 | P.PNIM_ITS ---
Progress Note: A&P Assessment and Plan (1) HTN (hypertension): Code(s): I10 - Essential (primary) hypertension Status: Acute (2) Community acquired pneumonia: Code(s): J18.9 - Pneumonia, unspecified organism Status: Acute (3) COPD (chronic obstructive pulmonary disease): Code(s): J44.9 - Chronic obstructive pulmonary disease, unspecified Status: Acute Plan 60-year-old female history of COPD presents to the emergency room for evaluation of ongoing SOB for 1 month. Patient admits she has not been able to access her medications due to a recent move. She reports a history of HTN, and COPD citing she has not had her medicines in over months. 1. Acute respiratory distress: Currently on room air Negative for influenza, RSV, COVID Chest x-ray unremarkable CT chest negative for any pneumonia Leukocytosis of 31.8 today Follow-up blood cultures Continue with albuterol, fluticasone salmeterol Will stop antibiotic and monitor Will start prednisone as well 2. History of hypertension: Continue with Norvasc Continue with p.r.n. IV hydralazine 3. Hypokalemia: Hyperkalemia has improved 4. Diabetes mellitus: hemoglobin 5.9 BG check TID AC and HS Continue with SS insulin Expect hyperglycemia in setting of steroid use Since steroids have been stopped expect improvement in hyperglycemia Will adjust dose as needed 5. Thyroid nodule: Thyroid ultrasound shows Multinodular goiter. Recommend ultrasound guided biopsy of the 4.7 cm TI-RADS 4 left thyroid nodule. Will send outpatient referral to Endocrine upon discharge 6. Code status: Full 7. DVT prophylaxis: Heparin subQ 8. Disposition: Anticipate discharge within next 24 hours if leukocytosis has improved Time Spent With Patient Time: 36 minutes Subjective Date/time seen: 07/03/25 13:26 Interval history: Eager to go home, no acute events overnight Review of Systems Review of Systems: All systems reviewed & are unremarkable except as noted in HPI and below Exam Narrative: APPEARANCE: No acute distress HEAD: normocephalic, atraumatic. EYES: PERRLA/EOMI, conjunctivae clear. THROAT: , no exudate. NECK: Supple. RESPIRATORY: Decreased breath sounds bilaterally, no added sounds heard CARDIOVASCULAR: Regular rate and rhythm without murmurs rubs or gallops. ABDOMINAL: Soft, nontender, nondistended, normal bowel sounds MUSCULOSKELETAL: No edema NEURO: Alert. SKIN: Warm, dry. Normal Color Objective Data Vital Signs Vital Signs: Vital Signs - 24 hr 07/02/25 13:33 07/02/25 14:00 07/02/25 16:00 Temperature 97.6 F Pulse Rate 103 H 96 97 Respiratory Rate 16 22 H Blood Pressure 152/82 H Pulse Oximetry 96 Oxygen Delivery Fraction of Inspired Oxygen 07/02/25 16:00 07/02/25 18:54 07/02/25 20:00 Temperature 96.8 F L Pulse Rate 98 56 L 100 Respiratory Rate 22 H Blood Pressure 144/85 H Pulse Oximetry 93 Oxygen Delivery Fraction of Inspired Oxygen 07/02/25 21:49 07/02/25 21:50 07/02/25 21:54 Temperature Pulse Rate 111 H 111 H 110 H Respiratory Rate 26 H 26 H 24 H Blood Pressure Pulse Oximetry 95 Oxygen Delivery Room Air Fraction of Inspired Oxygen 07/02/25 22:08 07/03/25 00:00 07/03/25 03:09 Temperature 98.1 F Pulse Rate 97 107 H 92 Respiratory Rate 18 20 Blood Pressure 128/64 Pulse Oximetry 100 Oxygen Delivery Fraction of Inspired Oxygen 07/03/25 04:00 07/03/25 06:00 07/03/25 07:17 Temperature 98.1 F Pulse Rate 90 91 84 Respiratory Rate 16 19 Blood Pressure 136/75 Pulse Oximetry 98 Oxygen Delivery Fraction of Inspired Oxygen 07/03/25 07:17 07/03/25 07:24 07/03/25 08:27 Temperature Pulse Rate 84 87 83 Respiratory Rate 19 19 Blood Pressure Pulse Oximetry 97 Oxygen Delivery Room Air Fraction of Inspired Oxygen 07/03/25 08:31 07/03/25 08:31 07/03/25 13:00 Temperature Pulse Rate 83 93 Respiratory Rate 19 Blood Pressure Pulse Oximetry Oxygen Delivery Room Air Fraction of Inspired Oxygen 07/03/25 13:07 Temperature Pulse Rate 91 Respiratory Rate 19 Blood Pressure Pulse Oximetry Oxygen Delivery Fraction of Inspired Oxygen Intake/Output Intake/Output: Intake & Output 06/30/25 07/01/25 07/02/25 07/03/25 23:59 23:59 23:59 23:59 Intake Total 1400 2482 240 Balance 1400 2482 240 Meds/Results Medications: Active Medications Generic Name Dose Route Start Last Admin Trade Name Freq PRN Reason Stop Dose Admin Albuterol 2.5 mg 07/01/25 20:00 07/03/25 12:59 Albuterol Sulfate Neb 2.5 Mg/3 Ml Inh INHALATION 2.5 mg Q6HRT NILESH Administration Albuterol 1 puff 07/01/25 20:20 Albuterol Sulfate (*Sp) Aerosol 1 Puff INHALATION Q4H PRN Shortness Of Breath Or Wheezing Amlodipine Besylate 10 mg 07/02/25 09:00 07/03/25 08:27 Amlodipine Besylate 10 Mg Tablet PO 10 mg DAILY NILESH Administration Calcium Carbonate 200 mg 07/02/25 12:49 07/03/25 00:28 Calcium Carbonate (Tums) 500 Mg (200 Mg Elemental) PO 200 mg Q6H PRN Administration Indigestion Dextrose 12.5 gm 07/02/25 09:15 Dextrose 50% 25 Gm/50 Ml Syringe IV PUSH PRN PRN Hypoglycemia Protocol Docusate Sodium 100 mg 07/03/25 12:46 Docusate Sodium 100 Mg Capsule PO Q12H PRN Constipation Glucagon 1 mg 07/02/25 09:15 Glucagon For Inj 1 Mg Vial IM PRN PRN Hypoglycemia Protocol Glucose 15 gm 07/02/25 09:15 Glucose Oral Gel 15 Gm Of Glucse In 37.5 Gm Tube PO PRN PRN Hypoglycemia Protocol Heparin Sodium (Porcine) 5,000 units 07/02/25 14:00 07/03/25 05:18 Heparin Sodium 5,000 Units/Ml Vial SUB-Q 5,000 units Q8HR NILESH Administration Hydralazine HCl 10 mg 07/02/25 09:13 Hydralazine Hcl 20 Mg/Ml Vial IV PUSH Q6HR PRN Blood Pressure - >160/90 Dextrose 1,000 mls @ 100 mls/hr 07/02/25 09:15 Dextrose 5% 1,000 Ml IVPB PRN PRN Hypoglycemia Protocol Insulin Aspart 3 - 6 units 07/02/25 12:00 07/03/25 12:08 Insulin Aspart (*Bkc) 100 Units/Ml SUB-Q 4 units TIDWM NILESH Administration Protocol Insulin Aspart 1 - 3 units 07/02/25 21:00 07/02/25 20:53 Insulin Aspart (*Bkc) 100 Units/Ml SUB-Q 3 units HS NILESH Administration Protocol Prednisone 40 mg 07/03/25 08:00 07/03/25 08:27 Prednisone 10 Mg Tablet PO 07/15/25 07:59 40 mg DAILY@0800 NILESH Administration Taper Fluticasone/Salmeterol 2 puff 07/02/25 08:00 07/03/25 07:16 Fluticasone/Salmeterol 115-21 Mcg Inhaler 1 Puff INHALATION 2 puff Q12HRT NILESH Administration Umeclidinium [place] 1 puff 07/02/25 08:00 07/03/25 08:25 Umeclidinium [place] 62.5 Mcg Ellipta INHALATION 1 puff DAILYRT NILESH Administration Radiology Results: ITS Impressions Chest X-Ray 07/01/25 13:04 IMPRESSION: 1. No acute cardiopulmonary findings. Chest CT 07/02/25 14:52 IMPRESSION: 1. No acute cardiopulmonary disease. 2. 3.5 cm left thyroid mass. Recommend thyroid ultrasound for risk stratification. Thyroid Ultrasound 07/03/25 12:58 IMPRESSION: 1. Multinodular goiter. Recommend ultrasound guided biopsy of the 4.7 cm TI-RADS 4 left thyroid nodule. Labs Labs: Laboratory Results - last 24 hr 07/02/25 07/02/25 07/03/25 15:45 19:37 05:32 WBC 31.8 H RBC 4.70 Hgb 13.5 Hct 42.8 MCV 91.1 MCH 28.7 MCHC 31.5 L RDW 14.3 Plt Count 363 MPV 10.8 H Immature Gran % (Auto) 1.6 H Neut % (Auto) 87.7 H Lymph % (Auto) 7.3 L [place] % (Auto) 3.1 Eos % (Auto) 0.0 Baso % (Auto) 0.3 Lymph # (Auto) 2.32 [place] # (Auto) 1.0 H Eos # (Auto) 0.0 Baso # (Auto) 0.1 Abs Immat Gran (auto) 0.50 H Absolute Neuts (auto) 27.9 H Absolute Nucleated RBC 0.000 Nucleated RBC % 0.0 Sodium 139 Potassium 3.8 Chloride 106 Carbon Dioxide 26 Anion Gap 7 BUN 21 H Creatinine 0.81 Estim Creat Clear Calc 72 Estimated GFR > 60 Glucose 150 H POC Capillary Glucose 307 H 354 H Calcium 9.2 Magnesium 2.4 H Total Bilirubin 0.2 AST 24 ALT 20 Alkaline Phosphatase 119 Total Protein 7.0 Albumin 3.5 07/03/25 07/03/25 08:12 11:40 WBC RBC Hgb Hct MCV MCH MCHC RDW Plt Count MPV Immature Gran % (Auto) Neut % (Auto) Lymph % (Auto) [place] % (Auto) Eos % (Auto) Baso % (Auto) Lymph # (Auto) [place] # (Auto) Eos # (Auto) Baso # (Auto) Abs Immat Gran (auto) Absolute Neuts (auto) Absolute Nucleated RBC Nucleated RBC % Sodium Potassium Chloride Carbon Dioxide Anion Gap BUN Creatinine Estim Creat Clear Calc Estimated GFR Glucose POC Capillary Glucose 139 H 261 H Calcium Magnesium Total Bilirubin AST ALT Alkaline Phosphatase Total Protein Albumin Quality VTE Prophylaxis VTE prophylaxis: pharmacologic ordered
[2025-07-03] MEDS: DOCUSATE SODIUM 100 MG CAPSULE PO (13:44)
[2025-07-04] VITALS (8 sets, daily range): BP systolic 154; BP diastolic 95; PULSE 77–102; RESP 16–20; TEMP 36.6; O2SAT 97
[2025-07-04] MEDS: ALBUTEROL SULFATE NEB 2.5 MG/3 ML INH INHALATION ×2 (02:43→07:30)
[2025-07-04 05:30] LABS: Hematocrit 42.1 % (37.0-47.0); Hemoglobin 13.4 g/dL (12.0-15.0); Immature Granulocyte Percent A 3.2 % (0-0.5); Lymphocytes Absolute Auto 4.70 K/mm3 (0.9-3.2); Mean Corpuscular HGB Conc 31.8 g/dl (32-36); Mean Corpuscular Hemoglobin 28.6 pg (26-34); Mean Corpuscular Volume 89.8 fl (80-100); Nucleated Red Blood Cells Absolute Auto 0.000 K/mm3 (0.0-0.012); Nucleated Red Blood Cells Perc 0.0 % (0.0-0.2); Platelet Count Result 356 k/mm3 (150-375); Red Blood Count 4.69 M/mm3 (4.2-5.4); White Blood Count 21.9 K/mm3 (4.5-10.0)
[2025-07-04 05:56] LABS: Anion Gap 8 mmol/L (4-12); Blood Urea Nitrogen 22 mg/dL (7-17); Calcium 8.4 mg/dL (8.4-10.2); Carbon Dioxide 27 mmol/L (22-30); Chloride 103 mmol/L (98-107); Estimated CRCL calculation 73 ml/min; Estimated Glomerular Filt Rate > 60; Glucose 102 mg/dL (65-110); Potassium 3.1 mmol/L (3.4-5.0); Sodium 138 mmol/L (137-145)
[2025-07-04] MEDS: FLUTICASONE/SALMETEROL 115-21 MCG INHALER 1 PUFF 2 PUFF INHALATION (07:30)
[2025-07-04] MEDS: UMECLIDINIUM BROMIDE 62.5 MCG ELLIPTA 1 PUFF INHALATION (07:30)
--- NOTE | 2025-07-04 10:10 | PM.DS ---
DS: Admitting Diagnosis Discharge Date 07/04 Admitting Diagnosis sob DS: Discharge Diagnosis Discharge Diagnosis (1) HTN (hypertension): Code(s): I10 - Essential (primary) hypertension Status: Acute (2) Community acquired pneumonia: Code(s): J18.9 - Pneumonia, unspecified organism Status: Acute (3) COPD (chronic obstructive pulmonary disease): Code(s): J44.9 - Chronic obstructive pulmonary disease, unspecified Status: Acute DS: Summary Hospital Course Hospital Course: 60-year-old female history of COPD presents to the emergency room for evaluation of ongoing SOB for 1 month. Patient admits she has not been able to access her medications due to a recent move. She reports a history of HTN, and COPD citing she has not had her medicines in over months. # Acute respiratory distress: Currently on room air Negative for influenza, RSV, COVID Chest x-ray unremarkable CT chest negative for any pneumonia Leukocytosis of 31.8 today Follow-up blood cultures- NEGATIVE Continue with albuterol, fluticasone salmeterol Will stop antibiotic and monitor Received Prednisone (very likely reason for her leukocytosis). Stopped on 07/[address] Maurer # History of hypertension: Continue with Norvasc Continue with p.r.n. IV hydralazine # Hypokalemia: Hyperkalemia has improved # Diabetes mellitus: hemoglobin 5.9 BG check TID AC and HS Continue with SS insulin Expect hyperglycemia in setting of steroid use Since steroids have been stopped expect improvement in hyperglycemia Will adjust dose as needed # Thyroid nodule: Thyroid ultrasound shows Multinodular goiter. Recommend ultrasound guided biopsy of the 4.7 cm TI-RADS 4 left thyroid nodule. Will send outpatient referral to Endocrine upon discharge #Disposition: Anticipate discharge within next 24 hours if leukocytosis has improved. 07/04 WBC went down to 21.9 from 31.8. Pt is insisting on going home. Discussed in details. She will have to get repeated labs withint he next few and have a close f/u with PCP. Status at Discharge Functional status at discharge: independent ambulation Overall status at discharge: patient is progressing back to baseline Time Spent with Patient Time attestation: Total time spent providing and/or coordinating discharge services: Time spent: Greater than 30 minutes Exam Narrative: APPEARANCE: No acute distress HEAD: normocephalic, atraumatic. EYES: PERRLA/EOMI, conjunctivae clear. THROAT: , no exudate. NECK: Supple. RESPIRATORY: [place], clear breath sounds bilaterally, no added sounds heard CARDIOVASCULAR: Regular rate and rhythm without murmurs rubs or gallops. ABDOMINAL: Soft, nontender, nondistended, normal bowel sounds MUSCULOSKELETAL: No edema NEURO: Alert. SKIN: Warm, dry. Normal Color Const: General: comfortable DS: Data Data Completed and Pending Labs on day of discharge: Labs from last 24 hours 07/04/25 07/04/25 07/03/25 08:17 05:09 21:51 WBC 21.9 H RBC 4.69 Hgb 13.4 Hct 42.1 MCV 89.8 MCH 28.6 MCHC 31.8 L RDW 14.6 H Plt Count 356 MPV 10.3 Immature Gran % (Auto) 3.2 H Neut % (Auto) 70.1 Lymph % (Auto) 21.5 [place] % (Auto) 4.4 Eos % (Auto) 0.1 Baso % (Auto) 0.7 Lymph # (Auto) 4.70 H [place] # (Auto) 1.0 H Eos # (Auto) 0.0 Baso # (Auto) 0.2 H Abs Immat Gran (auto) 0.71 H Absolute Neuts (auto) 15.3 H Absolute Nucleated RBC 0.000 Nucleated RBC % 0.0 Sodium 138 Potassium 3.1 L Chloride 103 Carbon Dioxide 27 Anion Gap 8 BUN 22 H Creatinine 0.80 Estim Creat Clear Calc 73 Estimated GFR > 60 Glucose 102 POC Capillary Glucose 88 244 H Calcium 8.4 07/03/25 07/03/25 16:59 11:40 WBC RBC Hgb Hct MCV MCH MCHC RDW Plt Count MPV Immature Gran % (Auto) Neut % (Auto) Lymph % (Auto) [place] % (Auto) Eos % (Auto) Baso % (Auto) Lymph # (Auto) [place] # (Auto) Eos # (Auto) Baso # (Auto) Abs Immat Gran (auto) Absolute Neuts (auto) Absolute Nucleated RBC Nucleated RBC % Sodium Potassium Chloride Carbon Dioxide Anion Gap BUN Creatinine Estim Creat Clear Calc Estimated GFR Glucose POC Capillary Glucose 176 H 261 H Calcium Preliminary micro results at discharge 07/01/25 16:50 Blood Culture - Preliminary Blood 07/01/25 16:50 Blood Culture - Preliminary Blood Discharge Plan Discharge Attending physician on discharge: Roosevelt Zarate Discharging Clinician: Bre Prabhakar Patient Disposition: Home Activity: no shower Diet: heart healthy Discharge Instructions: You were admitted for acute respiratory distress: Negative for influenza, RSV, COVID Chest x-ray unremarkable CT chest negative for any pneumonia Follow-up blood cultures- NEGATIVE Continue with albuterol, fluticasone salmeterol when discharged Received Prednisone (very likely reason for her leukocytosis). Stopped on 07/[address] Maurer # Hypokalemia (low potassium) Hyperkalemia has improved # Diabetes mellitus: hemoglobin 5.9 Expect hyperglycemia in setting of steroid use Since steroids have been stopped expect improvement in hyperglycemia # Thyroid nodule: Thyroid ultrasound shows Multinodular goiter. Recommend ultrasound guided biopsy of the 4.7 cm TI-RADS 4 left thyroid nodule. Will send outpatient referral to Endocrine upon discharge we discussed, your WBC still high but trending down. Have your blood work rechecked within few days after discharge and see your PCP right after lab work for review. If you feel shortness of breath, chest pain and/or develop any other symptoms, please return to ED righ away. Patient Instructions: Antibiotic Form, How to Stop Smoking (GEN) Patient Language: Stateless Stand Alone Forms: General Discharge Information Follow-up/Referrals: Katty Schmitt MD [Physician, Endocrinology] - Call for Appointment Referral Note: thyroid nodule, might need biopsy Discharge Medications: Continued amlodipine 10 mg tablet 10 mg PO DAILY albuterol sulfate 90 mcg/actuation HFA aerosol inhaler 1 inh INHALATION Q4H PRN (Reason: shortness of breath or wheezing) budesonide-formoterol [Symbicort] 160-4.5 mcg/actuation HFA aerosol inhaler 2 puff INHALATION Q12H Spiriva Respimat 2.5 mcg/actuation mist 2 puff INHALATION Q24H Date of admission: 07/03/25 14:01 Primary Care Provider: AkiRachel Admitting Provider: Yamila Smith Attending physician on admission: Yamila Smith Condition: Improved Quality VTE Prophylaxis VTE prophylaxis: pharmacologic ordered Hospitalist MIPS Heart Failure (Exclusion) Patient has history of Heart Transplant or Left Ventricular Assistive Device?: No IF YES, STOP HERE Heart Failure (Qualifier) Patient has current or prior documentation of LVEF less than or equal to 40%, or mod/servere depressed LVSF?: No IF NO, STOP HERE
== END 2025-07-04 11:55 | disposition home or self-care (01) | DRG 140 ==
LOC: ANHED 12:43 → ANHIMU 17:31 → ANH3MED 07-02 18:41
PROVIDERS: General Practice; Internal Medicine; Admitting Provider Internal Medicine; Emergency Provider Emergency Medicine; PCP Internal Medicine Gastroenterology; Visit Provider Nurse Practitioner
DX: J44.1 Chronic obstructive pulmonary disease with (acute) exacerbation (principal); R06.03 Acute respiratory distress; D72.829 Elevated white blood cell count, unspecified; E04.1 Nontoxic single thyroid nodule; E11.9 Type 2 diabetes mellitus without complications; E87.6 Hypokalemia; F17.210 Nicotine dependence, cigarettes, uncomplicated; I10 Essential (primary) hypertension; Z87.01 Personal history of pneumonia (recurrent); Z20.822 Contact with and (suspected) exposure to COVID-19
CPT/HCPCS: 36415; 71046; 71260; 76536; 80048; 80053; 82948; 83735; 83880; 85025; 85027; 87040; 87637; 93005; 94640; 96361; 96365; 96367; 96375; 99285; A9270; J0456; J0696; J1644; J1815; J2919; J3475; J7050; J7120; J7512; Q9967